=== PATIENT | female | born 1975 | race Two or more races ===

== ENCOUNTER → 2016-09-27 | Outpatient (CLI) | payer OTHER ==
[2016-03-27 16:30] VITALS: BP 158/103
[~2016-09-27] MED LIST: CARV12.52 PO; GLIP10TA13 PO; HYDR-971 PO; IOHEXOL 240 MG/ML 50ML VIAL. ONE; IOHEXOL 300 MG/ML 75 ML VIAL. IV ONE; LEVO500T59 PO; METR500T PO; NAPR500T3 PO; SULF1TAB23 PO
[2016-09-27 10:27] LABS: CREATININE 0.8 mg/dL (0.6-1.0); GFR 79.9
--- NOTE | 2016-09-27 11:45 | RAD ---
Indication teratoma. Axial images to the abdomen and pelvis were obtained. Oral and IV contrast were administered. Approximately 75 cc of Omnipaque 300 was administered intravenously. Note is made of a previous exam 12/26/2015. The lung bases are clear. Heterogeneous mass in the lower abdominal wall, compatible with a hernia appears stable. Liver and spleen appear unremarkable and the gallbladder appears grossly normal. No pancreatic abnormality is seen. There is a fatty mass associated with the right adrenal gland measuring approximately 3 cm appearing stable compatible with a benign adrenal myolipoma. The left adrenal gland appears unremarkable and the kidneys appear normal. Acute finding in the abdomen is not seen. Known fatty mass in the pelvis, measuring approximately 12 cm compatible with a teratoma is noted also appearing similar. An acute finding in the pelvis is not seen. IMPRESSION: No acute finding seen in the abdomen or pelvis. Known 12 cm pelvic mass, compatible with a teratoma, is reproduced and appears similar. Heterogeneous ventral lower abdominal wall hernia is noted appearing similar. Benign 3 cm right adrenal adenoma. PQRS Compliance Statement: One or more of the following individualized dose reduction techniques were utilized for this examination: 1. Automated exposure control 2. Adjustment of the mA and/or kV according to patient size 3. Use of iterative reconstruction technique
== END | disposition home or self-care (01) ==
LOC: CT 09:21
PROVIDERS: ATTEND Obstetrics & Gynecology
DX: E11.9 Type 2 diabetes mellitus without complications (principal); D27.1 Benign neoplasm of left ovary; K43.9 Ventral hernia without obstruction or gangrene; R19.00 Intra-abdominal and pelvic swelling, mass and lump, unspecified site
CPT/HCPCS: 36415; 74177; 82565; Q9966; Q9967

== ENCOUNTER 2016-11-11 14:08 | Emergency (ER) | payer OTHER ==
[~2016-11-11] VITALS: Ht 175.3 cm; Wt 147.4 kg
[~2016-11-11 14:08] MED LIST changes: -IOHEXOL 240 MG/ML 50ML VIAL. ONE; -IOHEXOL 300 MG/ML 75 ML VIAL. IV ONE
[2016-11-11] MEDS ORDERED: ERYT1OIN6 OP (14:48)
[2016-11-11] MEDS ORDERED: POLY10DR EACHEYE (14:48)
--- NOTE | 2016-11-11 14:48 | PHYS DOC ---
Past History Past Medical History: Anxiety, Arthritis, Asthma, Bronchitis, CHF, COPD, Depression, Diabetes, Fibromyalgia, High Cholesterol, Heart Disease, Hypertension, IBS, Ovarian Cyst, STD, UTI, Other Past Surgical History: No Surgical History Smoking: Cigarettes Alcohol Use: Occasionally Drug Use: None Adult General Chief Complaint Chief Complaint: pinkeye HPI HPI Patient is a 40-year-old female brought to the ED by her mother with the complaint of pinkeye in both eyes. She woke up with it this morning. Her vision is normal. She does not wear contact lenses. She did have a little mattering of her right eye. Her right eye is bothering her more. Review of Systems Review of Systems Constitutional: Denies fever or chills [] HENT: Denies nasal congestion or sore throat [] Allergies Allergies Allergies Coded Allergies Type Severity Reaction Last Updated Verified Penicillins Allergy Severe sob 10/26/14 No Physical Exam Physical Exam Constitutional: Well developed, well nourished, no acute distress, non-toxic appearance. Alert, mentating normally. HENT: Normocephalic, atraumatic, bilateral external ears normal, nose normal. [ ] Eyes: Moderate conjunctival injection of the right eye, mild conjunctival injection of the left eye. Corneas are clear bilaterally. Eyelids are unremarkable bilaterally. There is very slight mattering of the right eye, none on the left. Phobia. I exams are otherwise normal bilaterally. Neck: Normal range of motion, no stridor. [] Skin: Warm, dry, no erythema, no rash. [] Extremities: No tenderness, no cyanosis, no clubbing, ROM intact, no edema. [] Neurologic: Alert and oriented X 3, normal motor function, normal sensory function, no focal deficits noted. [] Current Patient Data Vital Signs Vital Signs Date Time Temp Pulse Resp B/P (MAP) Pulse Ox O2 Delivery O2 Flow Rate FiO2 11/11/16 14:38 98.4 107 22 94 EKG EKG [] Radiology/Procedures Radiology/Procedures [] Course & Med Decision Making Course & Med Decision Making Pertinent Labs and Imaging studies reviewed. (See chart for details) [] Dragon Disclaimer Dragon Disclaimer This chart was dictated in whole or in part using Voice Recognition software in a busy, high-work load, and often noisy Emergency Department environment. It may contain unintended and wholly unrecognized errors or omissions. Departure Departure: Impression: Primary Impression: Conjunctivitis Disposition: 01 HOME, SELF-CARE Condition: STABLE Referrals: ALEX POE (PCP) Patient Instructions: Conjunctivitis (Viral and Bacterial) Additional Instructions: Pinkeye" might be caused by a virus and take several days or more than a week to go away. It might be caused by a bacterial infection, which will be improved by antibiotics. If you are having trouble with your vision or other symptoms not typical for "pinkeye", see your eye doctor. Scripts Polymyxin B Sulf/Trimethoprim (POLYTRIM EYE DROPS) 10 Ml Drops 1 DROP EACHEYE Q2-3hrs for conjunctivitis, #10 ML Prov: REBECA NAVA MD 11/11/16 Erythromycin Base (Erythromycin) 1 Gm Oint...g. 1 GM OP TID for conjunctivitis, #1 MISC Apply in both eyes at bedtime Prov: REBECA NAVA MD 11/11/16 REBECA NAVA MD Nov 11, 2016 14:48
[2016-11-11 15:49] VITALS: BP 186/110
== END 2016-11-11 15:00 | disposition home or self-care (01) ==
LOC: ER 14:08
DX: H10.9 Unspecified conjunctivitis (principal); I11.0 Hypertensive heart disease with heart failure; I50.9 Heart failure, unspecified; E11.9 Type 2 diabetes mellitus without complications; F41.9 Anxiety disorder, unspecified; J44.9 Chronic obstructive pulmonary disease, unspecified; M79.7 Fibromyalgia; K58.9 Irritable bowel syndrome, unspecified; M19.90 Unspecified osteoarthritis, unspecified site; E78.00 Pure hypercholesterolemia, unspecified; F17.210 Nicotine dependence, cigarettes, uncomplicated; Z87.440 Personal history of urinary (tract) infections; Z88.0 Allergy status to penicillin
CPT/HCPCS: 99283

== ENCOUNTER 2016-11-25 19:51 | Emergency (ER) | payer OTHER ==
[~2016-11-25] VITALS: Ht 175.3 cm; Wt 187.8 kg
[~2016-11-25 19:51] MED LIST changes: +ERYT1OIN6 OP; +POLY10DR EACHEYE
[2016-11-25] MEDS ORDERED: IV NORMAL SALINE 1,000ML 1,000 ML IV SCH (19:54)
[2016-11-25 19:56] VITALS: BP 171/106
[2016-11-25] MEDS ORDERED: ONDANSETRON PF 4 MG/2 ML VIAL. IV ONE (20:00)
[2016-11-25] MEDS ORDERED: fentaNYL PF 100 MCG/2 ML VIAL IV PRN (20:00)
[2016-11-25] MEDS ORDERED: 0.9 % SODIUM CHLORIDE 10 ML DISP.SYRIN. IV PRN (20:00)
--- NOTE | 2016-11-25 20:11 | PHYS DOC ---
Past History Past Medical History: Hypertension Past Surgical History: No Surgical History Smoking: Cigarettes Alcohol Use: Occasionally Drug Use: None Adult General Chief Complaint Chief Complaint: ABDOMINAL PAIN [facility] HPI This patient is a pleasant 40-year-old female with history of multiple medical problems and morbid obesity presents with periumbilical pain that radiates out to the right lower quadrant. She's had pain like this going on for years periodically episodic about every 2-3 months. She describes as waves of pain that began around her belly button and radiates to the right lower quadrant. Described as dull and achy sharp stabbing pains in the right lower quadrant. Patient has had history of teratoma, umbilical hernia, hypertension, diabetes, and pains like this that has not been explored by laparotomy in the past. Tonight she was at rest sitting there on the couch talking with her sister when she began having severe pain periumbilically with radiation to the right lower quadrant. Daily she does not come in during these events but the family insisted. She denies any nausea at this time was nauseated with the pain. Denies any vomiting, diarrhea, UTI symptoms, hematuria, trauma, fevers, sweats, night sweats, weight loss travel outside the country. Patient says pain does not change with position or food. Review of Systems Review of Systems Constitutional: Denies fever or chills [] Eyes: Denies change in visual acuity, redness, or eye pain [] HENT: Denies nasal congestion or sore throat [] Respiratory: Denies cough or shortness of breath [] Cardiovascular: No additional information not addressed in HPI [] GI: Recently complains of abdominal pain with nausea no vomiting of bloody stools or diarrhea. No constipation : Denies dysuria or hematuria [] Musculoskeletal: Denies back pain or joint pain [] Integument: Denies rash or skin lesions [] Neurologic: Denies headache, focal weakness or sensory changes [] Endocrine: Denies polyuria or polydipsia [] Current Medications Current Medications Current Medications Medications (Trade) Dose Ordered Sig/Cami Start Time Stop Time Status Last Admin Dose Admin Fentanyl Citrate (Fentanyl 2ml Vial) 50 mcg PRN Q15MIN PRN 11/25/16 20:00 11/26/16 19:59 Ondansetron HCl (Zofran) 4 mg 1X ONCE 11/25/16 20:00 11/25/16 20:01 DC Sodium Chloride (Normal Saline Flush) 10 ml QSHIFT PRN 11/25/16 20:00 Allergies Allergies Allergies Coded Allergies Type Severity Reaction Last Updated Verified Penicillins Allergy Severe sob 10/26/14 No Physical Exam Physical Exam This patient is morbidly obese with a considerable amount of hirsutism Constitutional: Well developed, well nourished, no acute distress, non-toxic appearance. [] HENT: Normocephalic, atraumatic, bilateral external ears normal, oropharynx moist, no oral exudates, nose normal. [] Eyes: PERRLA, EOMI, conjunctiva normal, no discharge. [] Neck: Normal range of motion, no tenderness, supple, no stridor. [] Cardiovascular: Noted to be tachycardic on the monitor no murmurs rubs noted Lungs & Thorax: Bilateral breath sounds clear to auscultation [] Abdomen: Bowel sounds normal, soft, and is a umbilical hernia that is reproducible on exam there is no guarding rebound organomegaly. Patient is not any clear signs of Lizarraga's or McBurney's point tenderness to palpation. There is no abscess or cellulitis or change in skin color of the pannus. Skin: Warm, dry, no erythema, no rash. [] Extremities: No tenderness, no cyanosis, no clubbing, ROM intact, no edema. [] Neurologic: Alert and oriented X 3, normal motor function, normal sensory function, no focal deficits noted. [] Psychologic: Affect normal, judgement normal, mood normal. [] EKG EKG []EKG timed 8:06 PM demonstrates sinus tachycardia with heart rate of 107 WA interval 186 which is normal QRS width is 116 which demonstrates an incomplete right bundle branch block QTC is 473 which is normal. EKG read by me Radiology/Procedures Radiology/Procedures [] Course & Med Decision Making Course & Med Decision Making Pertinent Labs and Imaging studies reviewed. (See chart for details) [address] [address] IMAGING REPORT Signed PATIENT: ALAYNA RODRIGUEZ ACCOUNT: [id number] : 1975 LOCATION: ER AGE: 40 SEX: F EXAM STATUS: REG ER ORD. PHYSICIAN: CALVIN JEREZ MD REASON: ab pain PROCEDURE: CT ABD PELV W/ IV CONTRST ONLY PQRS Compliance Statement: One or more of the following individualized dose reduction techniques were utilized for this examination: 1. Automated exposure control 2. Adjustment of the mA and/or kV according to patient size 3. Use of iterative reconstruction technique CT abdomen/pelvis with contrast November 25, 2016 at 8:32 PM INDICATION: Abdominal pain radiating to the right abdomen. History of teratoma left ovary. COMPARISON: CT abdomen/pelvis September 27, 2016 TECHNIQUE: Multiple axial CT images of the abdomen and pelvis were obtained after the administration of 75 cc Omnipaque 300. Coronal and sagittal reformats are provided. FINDINGS: Lung bases are clear. Heart size is enlarged. There is diffuse hypoattenuation of the hepatic parenchyma suggestive of hepatic steatosis. No suspicious hepatic mass is identified. Spleen, left adrenal gland, pancreas and gallbladder are within normal limits. There is a fat-containing right adrenal lesion measuring 3.7 x 2.4 cm suggestive of a myelolipoma. The abdominal aorta is normal in course and caliber. There are no pathologically enlarged abdominal or pelvic lymph nodes. There is no free fluid within the abdomen or pelvis. No free peritoneal air. The kidneys enhance symmetrically. No suspicious renal mass is identified. There is no hydronephrosis. No calculi are identified in the ureters or urinary bladder. Urinary bladder is decompressed. There is a fat-containing right adnexal lesion measuring 13.8 x 10.6 cm, not significantly changed since September 27, 2016. Calcifications are present compatible with an ovarian teratoma. There is a fat-containing ventral hernia with fat stranding, improved since the prior examination from September 27, 2016. Small and large bowel are normal in caliber without pericolonic inflammatory changes. A normal appendix is visualized. No suspicious osseous lesions are are identified. IMPRESSION: 1. Stable right adnexal ovarian teratoma measuring 13.8 x 10.6 cm. There is mild fat stranding immediately superior to the lesion, which was seen previously to a lesser extent. Correlation with pelvic ultrasound may be of benefit to assess for ovarian torsion. 2. Similar appearance of a fat-containing ventral abdominal hernia. 3. Diffuse hepatic steatosis. 4. Stable appearance of a right adrenal myelolipoma. Electronically signed by: Ezio Munroe MD (11/25/2016 9:03 PM) [facility] DICTATED AND SIGNED BY: EZIO MUNROE MD DATE: 11/25/162056 CC: CALVIN JEREZ MD; ALEX POE []She presented with chronic right lower abdominal pain over her teratoma and her periumbilical hernia. It is not incarcerated at the time I was evaluating it. Patient's CT abdomen pelvis demonstrates a stable teratoma with no inflammatory changes at of change. Patient also notes that she hasn't focal hernia that is not incarcerated. Patient's laboratory work is also been returned she does have an elevated white count of 13,000 which is chronic for her likely secondary to chronic abdominal pain Although she is hyperglycemic with a sugar of 300 she is not in diabetic ketoacidosis. Her urinalysis she does demonstrate glucose and slight ketones but she had just eaten a large sugar bolus prior to coming in. She had eaten a turnover, [place] and a 32 ounce cola Patient I spoke long time about chronic abdominal pain and treatments for such elements. She is urgency and a general surgeon by then with Dr. Balaji Schreiber over the [facility] was offered to help fix her umbilical hernia and referred for teratoma but unfortunate she is been passed with the idea that she needs to lose weight and get her body into better shape to tolerate the surgeries. She understands her diet and her dependence on narcotics is partially completed for her sister's situation. She and I discussed reduction of narcotic usage and long-term treatment options for her belly pain. At this point there is no surgical issue going her abdomen like small bowel section, incarcerated hernia, bowel inflammation requiring localized section, antibiotics or other direct intervention. Patient be given precautions for abdominal pain which is unclear in etiology. Laboratory Tests Test 11/25/16 20:09 White Blood Count 13.0 x10^3/uL (4.0-11.0) H Red Blood Count 5.68 x10^6/uL (3.50-5.40) H Hemoglobin 15.6 g/dL (12.0-15.5) H Hematocrit 46.6 % (36.0-47.0) Mean Corpuscular Volume 82 fL (79-100) Mean Corpuscular Hemoglobin 27 pg (25-35) Mean Corpuscular Hemoglobin Concent 33 g/dL (31-37) Red Cell Distribution Width 16.3 % (11.5-14.5) H Platelet Count 283 x10^3/uL (140-400) Neutrophils (%) (Auto) 75 % (31-73) H Lymphocytes (%) (Auto) 19 % (24-48) L Monocytes (%) (Auto) 3 % (0-9) Eosinophils (%) (Auto) 2 % (0-3) Basophils (%) (Auto) 1 % (0-3) Neutrophils # (Auto) 9.8 x10^3uL (1.8-7.7) H Lymphocytes # (Auto) 2.5 x10^3/uL (1.0-4.8) Monocytes # (Auto) 0.4 x10^3/uL (0.0-1.1) Eosinophils # (Auto) 0.3 x10^3/uL (0.0-0.7) Basophils # (Auto) 0.1 x10^3/uL (0.0-0.2) Urine Collection Type Void Urine Color Estrella Urine Clarity Clear Urine pH 5.0 Urine Specific [place] >=1.030 Urine Protein >100 mg/dl (NEG-TRACE) Urine Glucose (UA) 500 mg/dL (NEG) Urine Ketones (Stick) 15 mg/dL (NEG) Urine Blood Small (NEG) Urine Nitrite Neg (NEG) Urine Bilirubin Small (NEG) Urine Urobilinogen Dipstick 1 mg/dL (0.2 mg/dL) Urine Leukocyte Esterase Neg (NEG) Urine RBC Occ /HPF (0-2) Urine WBC Occ /HPF (0-4) Urine Squamous Epithelial Cells Many /LPF Urine Bacteria 0 /HPF (0-FEW) Urine Test Negative (NEG) Sodium Level 137 mmol/L (136-145) Potassium Level 4.1 mmol/L (3.5-5.1) Chloride Level 100 mmol/L (98-107) Carbon Dioxide Level 32 mmol/L (21-32) Anion Gap 5 (6-14) L Blood Urea Nitrogen 10 mg/dL (7-20) Creatinine 1.0 mg/dL (0.6-1.0) Estimated GFR (Cockcroft-Gault) 61.7 BUN/Creatinine Ratio 10 (6-20) Glucose Level 307 mg/dL (70-99) H Glucose (Fingerstick) 314 mg/dL (70-99) H Calcium Level 8.7 mg/dL (8.5-10.1) Total Bilirubin 0.5 mg/dL (0.2-1.0) Aspartate Amino Transferase (AST) 27 U/L (15-37) Alanine Aminotransferase (ALT) 32 U/L (14-59) Alkaline Phosphatase 73 U/L (46-116) Total Protein 8.4 g/dL (6.4-8.2) H Albumin 3.4 g/dL (3.4-5.0) Albumin/Globulin Ratio 0.7 (1.0-1.7) L Lipase 123 U/L (73-393) Dragon Disclaimer Dragon Disclaimer This chart was dictated in whole or in part using Voice Recognition software in a busy, high-work load, and often noisy Emergency Department environment. It may contain unintended and wholly unrecognized errors or omissions. Departure Departure: Impression: Primary Impression: Ovarian teratoma Additional Impressions: Umbilical hernia Abdominal pain Morbid obesity Disposition: 01 HOME, SELF-CARE Condition: IMPROVED Referrals: ALEX POE (PCP) Patient Instructions: Abdominal Pain Additional Instructions: My discharge plan Follow up: In addition patient is asked to followup with their primary doctor, within a week for followup examination and to address patient's ongoing medical conditions. Patient is advised that in the Emergency Department primary complaints are addressed and only in light of known signs and symptoms. Patient should return immediately to the emergency department if new signs and symptoms develop or patient's condition worsens in any way. At time of discharge patient was in stable condition and had verbalized understanding of the discharge instructions. Please pay closer attention to your sugar levels as your diet is definitely going influence fluctuations in how high they get. They contribute to her symptoms get to [id number]. Scripts Hydrocodone Bit/Acetaminophen (HYDROCODONE-APAP 5-325 ) 1 Each Tablet 1 TAB PO PRN Q6HRS Y for PAIN, #6 TAB 0 Refills Prov: CALVIN JEREZ MD 11/25/16 Problem Qualifiers CALVIN JEREZ MD Nov 25, 2016 20:11
[2016-11-25] MEDS ORDERED: IOHEXOL 300 MG/ML 75 ML VIAL. IV ONE (20:15)
[2016-11-25 20:33] LABS: BASO # 0.1 x10^3/uL (0.0-0.2); BASO % 1 % (0-3); EOS # 0.3 x10^3/uL (0.0-0.7); EOS % 2 % (0-3); HEMATOCRIT 46.6 % (36.0-47.0); HEMOGLOBIN 15.6 g/dL (12.0-15.5); LYMPH # 2.5 x10^3/uL (1.0-4.8); LYMPH % 19 % (24-48); MEAN CORPUSCULAR HEMOGLOBIN 27 pg (25-35); MEAN CORPUSCULAR HGB CONC 33 g/dL (31-37); MEAN CORPUSCULAR VOLUME 82 fL (79-100); MONO # 0.4 x10^3/uL (0.0-1.1); MONO % 3 % (0-9); NEUT # 9.8 x10^3uL (1.8-7.7); NEUT % 75 % (31-73); PLATELET COUNT 283 x10^3/uL (140-400); RED BLOOD COUNT 5.68 x10^6/uL (3.50-5.40); RED CELL DISTRIBUTION WIDTH 16.3 % (11.5-14.5)
[2016-11-25 20:34] LABS: BILIRUBIN,URINE SMALL (NEG); CLARITY,URINE CLEAR; COLOR,URINE AMBER; GLUCOSE,URINE 500 mg/dL (NEG)
[2016-11-25 20:35] LABS: BACTERIA,URINE 0 /HPF (0-FEW); NITRITE,URINE NEG (NEG); RBC,URINE OCC /HPF (0-2); SQUAMOUS EPITHELIAL CELL,UR MANY /LPF; UROBILINOGEN,URINE 1 mg/dL (0.2 mg/dL); WBC,URINE OCC /HPF (0-4)
[2016-11-25 20:48] LABS: ALBUMIN 3.4 g/dL (3.4-5.0); ALBUMIN/GLOBULIN RATIO 0.7 (1.0-1.7); CALCIUM 8.7 mg/dL (8.5-10.1); GFR 61.7; POTASSIUM 4.1 mmol/L (3.5-5.1); TOTAL BILIRUBIN 0.5 mg/dL (0.2-1.0); TOTAL PROTEIN 8.4 g/dL (6.4-8.2)
[2016-11-25 20:49] LABS: U PREG PATIENT NEGATIVE (NEG)
--- NOTE | 2016-11-25 21:07 | RAD ---
PQRS Compliance Statement: One or more of the following individualized dose reduction techniques were utilized for this examination: 1. Automated exposure control 2. Adjustment of the mA and/or kV according to patient size 3. Use of iterative reconstruction technique CT abdomen/pelvis with contrast November 25, 2016 at 8:32 PM INDICATION: Abdominal pain radiating to the right abdomen. History of teratoma left ovary. COMPARISON: CT abdomen/pelvis September 27, 2016 TECHNIQUE: Multiple axial CT images of the abdomen and pelvis were obtained after the administration of 75 cc Omnipaque 300. Coronal and sagittal reformats are provided. FINDINGS: Lung bases are clear. Heart size is enlarged. There is diffuse hypoattenuation of the hepatic parenchyma suggestive of hepatic steatosis. No suspicious hepatic mass is identified. Spleen, left adrenal gland, pancreas and gallbladder are within normal limits. There is a fat-containing right adrenal lesion measuring 3.7 x 2.4 cm suggestive of a myelolipoma. The abdominal aorta is normal in course and caliber. There are no pathologically enlarged abdominal or pelvic lymph nodes. There is no free fluid within the abdomen or pelvis. No free peritoneal air. The kidneys enhance symmetrically. No suspicious renal mass is identified. There is no hydronephrosis. No calculi are identified in the ureters or urinary bladder. Urinary bladder is decompressed. There is a fat-containing right adnexal lesion measuring 13.8 x 10.6 cm, not significantly changed since September 27, 2016. Calcifications are present compatible with an ovarian teratoma. There is a fat-containing ventral hernia with fat stranding, improved since the prior examination from September 27, 2016. Small and large bowel are normal in caliber without pericolonic inflammatory changes. A normal appendix is visualized. No suspicious osseous lesions are are identified. IMPRESSION: 1. Stable right adnexal ovarian teratoma measuring 13.8 x 10.6 cm. There is mild fat stranding immediately superior to the lesion, which was seen previously to a lesser extent. Correlation with pelvic ultrasound may be of benefit to assess for ovarian torsion. 2. Similar appearance of a fat-containing ventral abdominal hernia. 3. Diffuse hepatic steatosis. 4. Stable appearance of a right adrenal myelolipoma. Electronically signed by: Oxana Rai MD (11/25/2016 9:03 PM) [facility]
[2016-11-25] MEDS ORDERED: HYDR-2758 PO (21:30)
== END 2016-11-25 21:40 | disposition home or self-care (01) ==
LOC: ER 19:51
DX: D27.0 Benign neoplasm of right ovary (principal); K42.9 Umbilical hernia without obstruction or gangrene; I10 Essential (primary) hypertension; E66.01 Morbid (severe) obesity due to excess calories; E11.65 Type 2 diabetes mellitus with hyperglycemia; G89.29 Other chronic pain; F17.210 Nicotine dependence, cigarettes, uncomplicated; Z88.0 Allergy status to penicillin
CPT/HCPCS: 36415; 74177; 80053; 81001; 81025; 82947; 83690; 85025; 96361; 96374; 96375; 99285; J2405; J3010; Q9967; J7030

== ENCOUNTER 2016-12-12 23:12 | Emergency (ER) | payer OTHER ==
[~2016-12-12] VITALS: Ht 175.3 cm; Wt 195.0 kg
[~2016-12-12 23:12] MED LIST changes: +HYDR-2758 PO
--- NOTE | 2016-12-12 23:59 | PHYS DOC ---
Past History Past Medical History: Anxiety, CHF, Depression, Diabetes, GERD, Heart Disease, Hypertension, Ovarian Cyst Past Surgical History: No Surgical History Smoking: Cigarettes Alcohol Use: Occasionally Drug Use: None Adult General Chief Complaint Chief Complaint: SHORTNESS OF BREATH HPI HPI Patient is a 40 year old female who presents with complaints after her CPAP was taken back by her insurance copy. She states she got new insurance company and they'll contract with the people supplier her CPAP and 1 week ago they came and picked up the machine. She states she has a new insurance currently who contracts with. They will bring her CPAP machine until she gets a sleep study. Sleep study is scheduled for 2 weeks from now. She complains of excessive tiredness, mild headache, and following asleep suddenly. According to her mom she also has noticed that she is gaining weight in the same symptoms happened 7 years ago when she was diagnosed with obstructive sleep apnea and congestive heart failure. Mom's concern that this is all related to her missing CPAP machine. Patient states that she does have a concentrator at home is been using nasal cannula oxygen and has been complaining about green mucus discharge in the last 2 days. Review of Systems Review of Systems Constitutional: Denies fever or chills [] Eyes: Denies change in visual acuity, redness, or eye pain [] HENT: Denies nasal congestion or sore throat [] Respiratory: Denies cough or shortness of breath [] Cardiovascular: No additional information not addressed in HPI [] GI: Denies abdominal pain, nausea, vomiting, bloody stools or diarrhea [] : Denies dysuria or hematuria [] Musculoskeletal: Denies back pain or joint pain [] Integument: Denies rash or skin lesions [] Neurologic: Denies headache, focal weakness or sensory changes [] Endocrine: Denies polyuria or polydipsia [] Allergies Allergies Allergies Coded Allergies Type Severity Reaction Last Updated Verified Penicillins Allergy Severe sob 10/26/14 No Physical Exam Physical Exam Constitutional: Elderly obese, no acute distress, non-toxic appearance. [] HENT: Normocephalic, atraumatic, bilateral external ears normal, oropharynx moist, no oral exudates, nose normal. [] Eyes: PERRLA, EOMI, conjunctiva normal, no discharge. [] Neck: Normal range of motion, no tenderness, supple, no stridor. [] Cardiovascular:Heart rate regular rhythm, no murmur [] Lungs & Thorax: Bilateral breath sounds clear to auscultation [] Abdomen: Bowel sounds normal, soft, no tenderness, no masses, no pulsatile masses. [] Skin: Warm, dry, no erythema, no rash. [] Back: No tenderness, no CVA tenderness. [] Extremities: No tenderness, no cyanosis, no clubbing, ROM intact, no edema. [] Neurologic: Alert and oriented X 3, normal motor function, normal sensory function, no focal deficits noted. [] Psychologic: Affect normal, judgement normal, mood normal. [] EKG EKG EKG shows sinus rhythm with rate of [address] elevations or T-wave inversions, incomplete right bundle branch morphology noted, QTC 488 milliseconds, as interpreted by me. EKG is similar one performed on December 26, 2015. Radiology/Procedures Radiology/Procedures One view chest x-ray doesn't show any focal consolidations, and pneumothorax, foreign bodies, as interpreted by me. Impressions: Viral sinusitis Morbid obesity History of congestive heart failure JOSE ALBERTO Course & Med Decision Making Course & Med Decision Making Pertinent Labs and Imaging studies reviewed. (See chart for details) Her sinus discharge is likely viral nature. We'll send home with a Z-Theodore and instructed if it continues more than 5-7 day she started taking her Z-Theodore. She had a walking desat study in the ER It better when she got up walking and her O2 sats improved. She was not hypoxic. Her vitals are within normal limits. She is not requiring oxygen. She does have oxygen concentrator at home that she uses at nighttime when she sleeps. She is missing her sleep apnea machine. I've instructed her to follow back up at her primary care clinic or see if there is a methodist or [employer] organization that she can borrow one until she gets her sleep study completed. She can get her sleep study evaluation moved up. She's being discharged home with her mom in stable condition at this time. Return precautions given. Dragon Disclaimer Dragon Disclaimer This chart was dictated in whole or in part using Voice Recognition software in a busy, high-work load, and often noisy Emergency Department environment. It may contain unintended and wholly unrecognized errors or omissions. Departure Departure: Impression: Primary Impression: Nasal and sinus discharge Referrals: ALEX POE (PCP) Patient Instructions: Sinusitis Additional Instructions: Your EKG, lab work not show any acute abnormalities, and your chest x-ray looked similar to previous ones. You might have a viral sinus infection or could be dry secondary to lack a humidifier on your oxygen concentrator. If your green nasal discharge last for more than a week you can fill your prescription for azithromycin which is an antibiotic. Regarding your CPAP machine you can try to contact her methodist or other organizations to obtain one temporarily. I recommend you calling year physician at the [facility] tomorrow and see if they can help you out. They might be older move your sleep study up or to some other things to help. Return ER if you have severe shortness of breath, chest discomfort, or other concerns. Scripts Azithromycin (ZITHROMAX PACKET) 1 Gm Packet 1 PACKET PO ONCE, #1 PACKET Prov: CAPRI HASSAN MD 12/13/16 CAPRI HASSAN MD Dec 12, 2016 23:59
[2016-12-13 01:01] LABS: BASO # 0.1 x10^3/uL (0.0-0.2); BASO % 1 % (0-3); EOS # 0.3 x10^3/uL (0.0-0.7); EOS % 2 % (0-3); HEMATOCRIT 47.8 % (36.0-47.0); HEMOGLOBIN 15.7 g/dL (12.0-15.5); LYMPH # 2.7 x10^3/uL (1.0-4.8); LYMPH % 21 % (24-48); MEAN CORPUSCULAR HEMOGLOBIN 27 pg (25-35); MEAN CORPUSCULAR HGB CONC 33 g/dL (31-37); MEAN CORPUSCULAR VOLUME 83 fL (79-100); MONO # 0.6 x10^3/uL (0.0-1.1); MONO % 5 % (0-9); NEUT # 9.5 x10^3uL (1.8-7.7); NEUT % 72 % (31-73); PLATELET COUNT 256 x10^3/uL (140-400); RED CELL DISTRIBUTION WIDTH 16.4 % (11.5-14.5); WHITE BLOOD COUNT 13.2 x10^3/uL (4.0-11.0)
--- NOTE | 2016-12-13 01:05 | EKG ---
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
[2016-12-13 01:56] LABS: ALBUMIN 3.4 g/dL (3.4-5.0); CREATININE 0.8 mg/dL (0.6-1.0); DIRECT BILIRUBIN 0.2 mg/dL (0.0-0.2); GFR 79.9; MAGNESIUM 1.8 mg/dL (1.8-2.4); POTASSIUM 4.5 mmol/L (3.5-5.1); TOTAL BILIRUBIN 0.7 mg/dL (0.2-1.0); TOTAL PROTEIN 8.5 g/dL (6.4-8.2)
[2016-12-13 02:10] LABS: BARBITURATES NEG (NEG); BENZODIAZEPINES NEG (NEG); CANNABINOIDS NEG (NEG); COCAINE NEG (NEG); METHADONE NEG (NEG); OPIATES NEG (NEG); PHENCYCLIDINE NEG (NEG)
[2016-12-13 02:12] LABS: BACTERIA,URINE FEW /HPF (0-FEW); BILIRUBIN,URINE NEG (NEG); CLARITY,URINE CLEAR; COLOR,URINE YELLOW; GLUCOSE,URINE >=1000 mg/dL (NEG); NITRITE,URINE NEG (NEG); RBC,URINE 0 /HPF (0-2); SQUAMOUS EPITHELIAL CELL,UR MANY /LPF; UROBILINOGEN,URINE 1 mg/dL (0.2 mg/dL); WBC,URINE RARE /HPF (0-4)
[2016-12-13 02:13] LABS: AMPHETAMINE/METHAMPHETAMINE NEG (NEG)
[2016-12-13 02:51] VITALS: BP 172/117
[2016-12-13] MEDS ORDERED: AZIT1PAC PO (02:51)
--- NOTE | 2016-12-13 07:37 | RAD ---
Chest x-ray Indication: Shortness of breath Technique: AP view of the chest Comparison: Previous study from 12/19/2015 Findings: Heart is mildly enlarged in size. There is loss of normal concavity at the aortopulmonary window. Bilateral prominent pulmonary vasculature with signs of cephalization. No focal consolidation. Mild diffuse bilateral prominent interstitial markings. No pneumothorax or pleural effusion. Stable infiltration of the right hemidiaphragm. Visualized bony thorax is within normal limits. Impression: 1. Stable cardiomegaly with pulmonary vascular congestion and mild pulmonary interstitial edema. 2. Loss of normal concavity at the aortopulmonary window may suggest enlarged main pulmonary artery suggesting pulmonary hypertension.
== END 2016-12-13 03:05 | disposition home or self-care (01) ==
LOC: ER 23:12
DX: J32.8 Other chronic sinusitis (principal); E66.01 Morbid (severe) obesity due to excess calories; I11.0 Hypertensive heart disease with heart failure; I50.9 Heart failure, unspecified; E11.9 Type 2 diabetes mellitus without complications; K21.9 Gastro-esophageal reflux disease without esophagitis; F41.9 Anxiety disorder, unspecified; F32.9 Major depressive disorder, single episode, unspecified; F17.210 Nicotine dependence, cigarettes, uncomplicated; G47.33 Obstructive sleep apnea (adult) (pediatric); Z68.44 Body mass index [BMI] 60.0-69.9, adult; Z88.0 Allergy status to penicillin
CPT/HCPCS: 36415; 71010; 80048; 80076; 80307; 81001; 81025; 82553; 83735; 83880; 84484; 85025; 93005; 99285-25; G0479

== ENCOUNTER 2016-12-17 21:28 | Inpatient (IN) | payer OTHER ==
[~2016-12-17] VITALS: Ht 175.3 cm; Wt 196.2 kg
[~2016-12-17 21:28] MED LIST changes: +AZIT1PAC PO; -NAPR500T3 PO; +NAPR500T4 PO
[2016-12-17] MEDS ORDERED: LABETALOL 20 MG/4 ML DISP.SYRIN. IVP ONE (22:15)
--- NOTE | 2016-12-17 22:44 | EKG ---
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
[2016-12-17 23:01] LABS: BASO % 0 % (0-3); EOS # 0.3 x10^3/uL (0.0-0.7); EOS % 3 % (0-3); HEMATOCRIT 45.4 % (36.0-47.0); HEMOGLOBIN 15.2 g/dL (12.0-15.5); LYMPH % 25 % (24-48); MEAN CORPUSCULAR HEMOGLOBIN 27 pg (25-35); MEAN CORPUSCULAR HGB CONC 34 g/dL (31-37); MEAN CORPUSCULAR VOLUME 82 fL (79-100); MONO # 0.6 x10^3/uL (0.0-1.1); MONO % 5 % (0-9); NEUT # 8.2 x10^3uL (1.8-7.7); NEUT % 67 % (31-73); PLATELET COUNT 223 x10^3/uL (140-400); RED BLOOD COUNT 5.56 x10^6/uL (3.50-5.40); RED CELL DISTRIBUTION WIDTH 16.3 % (11.5-14.5); WHITE BLOOD COUNT 12.2 x10^3/uL (4.0-11.0)
[2016-12-17 23:23] LABS: ALBUMIN 3.4 g/dL (3.4-5.0); ALBUMIN/GLOBULIN RATIO 0.8 (1.0-1.7); CALCIUM 8.6 mg/dL (8.5-10.1); CREATININE 0.8 mg/dL (0.6-1.0); GFR 79.9; TOTAL BILIRUBIN 0.4 mg/dL (0.2-1.0); TOTAL PROTEIN 7.7 g/dL (6.4-8.2)
[2016-12-17 23:24] LABS: POTASSIUM 4.2 mmol/L (3.5-5.1)
[2016-12-18] VITALS (13 sets, daily range): BP systolic 139–196; BP diastolic 71–117
[2016-12-18] MEDS ORDERED: FUROSEMIDE 40 MG/4 ML VIAL IVP ONE
[2016-12-18] MEDS ORDERED: hydrALAZINE 20 MG/ML VIAL. IV ONE
--- NOTE | 2016-12-18 00:29 | PHYS DOC ---
Past History Past Medical History: Anxiety, CHF, COPD, Depression, Diabetes, GERD, Heart Disease, Hypertension, Ovarian Cyst, Other Past Surgical History: No Surgical History Smoking: Cigarettes Alcohol Use: Occasionally Drug Use: None Adult General Chief Complaint Chief Complaint: SHORTNESS OF BREATH HPI HPI Patient is a 40 year old female who presents with complaint shortness of breath. Patient states that her symptoms have been progressively worsening over the past 9 days. Patient has history of morbid obesity and obstructive sleep apnea. Patient states that she had been on CPAP therapy at nighttime was recently taken off of this due to insurance problems. The patient has been trialed on oxygen at nighttime. Patient states that despite treatment she has been feeling worse. Patient also notes that she has been having worsening dyspnea on exertion, orthopnea, and lower extremity edema over the course of the last week. Patient had been seen recently in the emergency department and was treated for sinusitis. Patient states that she took in a box as prescribed, however this did not help with her symptoms. Patient denies any associated fevers or associated pain at this time. Patient states that she gets very short of breath with minimal exertion. Patient has not taken any medications help with symptoms at this time. Review of Systems Review of Systems Constitutional: Denies fever or chills [] Eyes: Denies change in visual acuity, redness, or eye pain [] HENT: Denies nasal congestion or sore throat [] Respiratory: Shortness of breath[] Cardiovascular: Lower extremity edema, orthopnea, denies chest pain[] GI: Denies abdominal pain, nausea, vomiting, bloody stools or diarrhea [] : Denies dysuria or hematuria [] Musculoskeletal: Denies back pain or joint pain [] Integument: Denies rash or skin lesions [] Neurologic: Denies headache, focal weakness or sensory changes [] Current Medications Current Medications Current Medications Medications (Trade) Dose Ordered Sig/Cami Start Time Stop Time Status Last Admin Dose Admin Labetalol HCl (Normodyne) 20 mg 1X ONCE 12/17/16 22:15 12/17/16 22:16 DC 12/17/16 23:00 20 MG Allergies Allergies Allergies Coded Allergies Type Severity Reaction Last Updated Verified Penicillins Allergy Severe sob 10/26/14 No Physical Exam Physical Exam Constitutional: Alert, afebrile, morbidly obese, appears in mild respiratory distress. [] HENT: Normocephalic, atraumatic, bilateral external ears normal, oropharynx moist, no oral exudates, nose normal. [] Eyes: PERRLA, EOMI, conjunctiva normal, no discharge. [] Neck: Normal range of motion, no tenderness, supple, no stridor. [] Cardiovascular: Tachycardia, regular rhythm, no murmur [] Lungs & Thorax: Mild to moderate restriction of air movement bilaterally, no wheezes, rales present[] Abdomen: Bowel sounds normal, soft, no tenderness, no masses, no pulsatile masses. [] Skin: Warm, dry, no erythema, no rash. [] Back: No tenderness, no CVA tenderness. [] Extremities: No tenderness, no cyanosis, no clubbing, ROM intact, 1+ pitting edema in the bilateral lower extremities. [] Neurologic: Alert and oriented X 3, normal motor function, normal sensory function, no focal deficits noted. [] Current Patient Data Vital Signs Vital Signs Date Time Temp Pulse Resp B/P (MAP) Pulse Ox O2 Delivery O2 Flow Rate FiO2 12/17/16 23:00 120 189/133 12/17/16 21:40 98.2 20 96 Room Air Lab Results Laboratory Tests Test 12/17/16 22:40 White Blood Count 12.2 x10^3/uL (4.0-11.0) H Red Blood Count 5.56 x10^6/uL (3.50-5.40) H Hemoglobin 15.2 g/dL (12.0-15.5) Hematocrit 45.4 % (36.0-47.0) Mean Corpuscular Volume 82 fL (79-100) Mean Corpuscular Hemoglobin 27 pg (25-35) Mean Corpuscular Hemoglobin Concent 34 g/dL (31-37) Red Cell Distribution Width 16.3 % (11.5-14.5) H Platelet Count 223 x10^3/uL (140-400) Neutrophils (%) (Auto) 67 % (31-73) Lymphocytes (%) (Auto) 25 % (24-48) Monocytes (%) (Auto) 5 % (0-9) Eosinophils (%) (Auto) 3 % (0-3) Basophils (%) (Auto) 0 % (0-3) Neutrophils # (Auto) 8.2 x10^3uL (1.8-7.7) H Lymphocytes # (Auto) 3.0 x10^3/uL (1.0-4.8) Monocytes # (Auto) 0.6 x10^3/uL (0.0-1.1) Eosinophils # (Auto) 0.3 x10^3/uL (0.0-0.7) Basophils # (Auto) 0.0 x10^3/uL (0.0-0.2) Sodium Level 135 mmol/L (136-145) L Potassium Level 4.2 mmol/L (3.5-5.1) Chloride Level 96 mmol/L (98-107) L Carbon Dioxide Level 33 mmol/L (21-32) H Anion Gap 6 (6-14) Blood Urea Nitrogen 12 mg/dL (7-20) Creatinine 0.8 mg/dL (0.6-1.0) Estimated GFR (Cockcroft-Gault) 79.9 BUN/Creatinine Ratio 15 (6-20) Glucose Level 330 mg/dL (70-99) H Calcium Level 8.6 mg/dL (8.5-10.1) Total Bilirubin 0.4 mg/dL (0.2-1.0) Aspartate Amino Transferase (AST) 26 U/L (15-37) Alanine Aminotransferase (ALT) 32 U/L (14-59) Alkaline Phosphatase 75 U/L (46-116) Creatine Kinase 58 U/L (26-192) Creatine Kinase MB (Mass) 0.8 ng/mL (0.0-3.6) Creatine Kinase MB Relative Index 1.4 % (0-4) Troponin I Quantitative 0.031 ng/mL (0-0.055) UP-Keg-K-Type Natriuretic Peptide 217 pg/mL (0-124) H Total Protein 7.7 g/dL (6.4-8.2) Albumin 3.4 g/dL (3.4-5.0) Albumin/Globulin Ratio 0.8 (1.0-1.7) L EKG EKG Interpreted by me: Heart rate 119, sinus tachycardia, left axis deviation, no acute ST elevations or depressions[] Radiology/Procedures Radiology/Procedures One view AP chest x-ray interpreted by me: Mild interval worsening of pulmonary vascular congestion, pulmonary edema, cardiomegaly present[] Course & Med Decision Making Course & Med Decision Making Pertinent Labs and Imaging studies reviewed. (See chart for details) Patient found have pathologically elevated blood pressure in the emergency department. Patient was given labetalol and hydralazine for treatment. Patient' s x-ray shows evidence of possible worsening congestive heart failure. On ambulation, the patient's oxygen saturation decreases to 88% but returns to 92% at rest. The patient appears to be in acute congestive heart failure which may also be result of accelerated hypertension. The patient will require admission to the hospital for further treatment. I spoke with Dr. Grajeda who accepted care patient in hospital. Dragon Disclaimer Dragon Disclaimer This chart was dictated in whole or in part using Voice Recognition software in a busy, high-work load, and often noisy Emergency Department environment. It may contain unintended and wholly unrecognized errors or omissions. Departure Departure: Impression: Primary Impression: Acute congestive heart failure Additional Impressions: Malignant hypertension Morbid obesity Uncontrolled diabetes mellitus Disposition: 09 ADMITTED INPATIENT Admitting Physician: Mihir Grajeda Condition: GUARDED Referrals: ALEX POE (PCP) Problem Qualifiers Primary Impression: Acute congestive heart failure Congestive heart failure type: unspecified congestive heart failure type Qualified Codes: I50.9 - Heart failure, unspecified Additional Impressions: Uncontrolled diabetes mellitus Diabetes mellitus type: type 2 Diabetes mellitus complication status: with hyperglycemia 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
[2016-12-18] MEDS ORDERED: LABETALOL 20 MG/4 ML DISP.SYRIN. IVP PRN (00:30)
[2016-12-18] MEDS ORDERED: ACETAMINOPHEN 325 MG TABLET PO PRN (00:30)
[2016-12-18] MEDS ORDERED: hydrALAZINE 20 MG/ML VIAL. IV PRN (00:30)
[2016-12-18] MEDS ORDERED: ONDANSETRON PF 4 MG/2 ML VIAL. IV PRN (00:30)
[2016-12-18 02:32] LABS: CLARITY,URINE CLEAR; COLOR,URINE STRAW; GLUCOSE,URINE 100 mg/dL (NEG)
[2016-12-18 02:33] LABS: BACTERIA,URINE FEW /HPF (0-FEW); BILIRUBIN,URINE NEG (NEG); HYALINE CASTS, URINE OCC /HPF; NITRITE,URINE NEG (NEG); RBC,URINE RARE /HPF (0-2); SQUAMOUS EPITHELIAL CELL,UR FEW /LPF; UROBILINOGEN,URINE 0.2 mg/dL (0.2 mg/dL); WBC,URINE OCC /HPF (0-4)
[2016-12-18] MEDS ORDERED: DEXTROSE 50% 25 GM / 50ML DISP.SYRIN. IV PRN (08:15)
[2016-12-18] MEDS: INSULIN ASPART 300 UNITS/3 ML INSULN.PEN SQ SCH ×4 (08:23→20:58)
[2016-12-18] MEDS ORDERED: OMEP40CA5 PO (08:59)
--- NOTE | 2016-12-18 09:05 | PDOC2 ---
CONSULT Date of Admission DATE: 12/18/16 TIME: 09:00 Reason for Consult: chf, accelerated hypertension Problem List Problems Medical Problems: (1) Acute congestive heart failure Status: Acute (2) Malignant hypertension Status: Acute (3) Morbid obesity Status: Acute (4) Uncontrolled diabetes mellitus Status: Acute History of Present Illness Ms Baker is a 40 year old female who presented with reports of shortness of breath which has been progressively worsening over the past 9 days. She complains of worsening dyspnea on exertion, orthopnea, and lower extremity edema over the last week. She reports 4 pillow orthopnea which she says is chronic. She complains of a productive cough with green sputum. She does say this has improved since recent treatment for sinusitis but the cough remains. She reports recently losing her CPAP due to insurance reasons but has been on oxygen at night and with exertion at home. She complains that her symptoms of fatigue, daytime somnolence and am headaches have increased significantly since being off CPAP. She does normally see a scada operator at [facility] but reports that physician is no longer practicing. Her PCP is out of [facility] in [place]. She reports that she takes her medications for hypertension but not always religiously. Past Medical History asthma, copd, morbid obesity, polycystic ovarian syndrome, diabetes mellitus, JOSE ALBERTO, hypertension, ovarian teratoma, ventral hernia, fatty liver, adrenal myelolipoma Past Surgical History: Tonsillectomy, Other (tubes in earsz) Family History premature coronary disease, father of MD in his 40s Social History non smoker, no illicit drugs, no significant ETOH Current Medications Current Medications Labetalol HCl (Normodyne) 20 mg 1X ONCE IVP Last administered on 12/17/16 23: 00; Start 12/17/16 at 22:15; Stop 12/17/16 at 22:16; Status DC Hydralazine HCl (Apresoline) 10 mg 1X ONCE IV Last administered on 12/18/16 01:10; Start 12/18/16 at 00:00; Stop 12/18/16 at 01:11; Status DC Furosemide (Lasix) 40 mg 1X ONCE IVP Last administered on 12/18/16 01:10; Start 12/18/16 at 00:00; Stop 12/18/16 at 01:11; Status DC Ondansetron HCl (Zofran) 4 mg PRN Q4HRS PRN IV NAUSEA/VOMITING; Start 12/18/16 at 00:30; Stop 12/19/16 at 00:29 Acetaminophen (Tylenol) 650 mg PRN Q4HRS PRN PO FEVER; Start 12/18/16 at 00:30 ; Stop 12/19/16 at 00:29 Labetalol HCl (Normodyne) 20 mg PRN Q2HR PRN IVP HYPERTENSION, SEE COMMENTS; Start 12/18/16 at 00:30 Hydralazine HCl (Apresoline) 10 mg PRN Q4HRS PRN IV ELEVATED BP, SEE COMMENTS Last administered on 12/18/16 05:20; Start 12/18/16 at 00:30 Insulin Aspart (NovoLOG) 0-7 UNITS TIDACHC SQ Last administered on 12/18/16 08 :23; Start 12/18/16 at 08:15 Dextrose 12.5 gm PRN Q15MIN PRN IV SEE COMMENTS; Start 12/18/16 at 08:15 Active Scripts Active [place] 5-325 Tablet (Hydrocodone Bit/Acetaminophen) 1 Each Tablet 1-2 Tab PO Q6HRS PRN Naproxen 500 Mg Tablet 500 Mg PO BID PRN Reported Omeprazole 40 Mg Capsule.dr 1 Cap PO DAILY Glipizide 10 Mg Tablet 1 Tab PO BID Allergies: Coded Allergies: Penicillins (Unverified Allergy, Severe, sob, 10/26/14) Review of System as per HPI General: Alert, Oriented X3, Cooperative, No acute distress HEENT: Atraumatic, EOMI Lungs: Other (decreased throughout, no obvious crackles, rhonchi or wheezing) Heart: Regular rate, Normal S1, Normal S2 Abdomen: Normal bowel sounds, Soft, Other (morbidly obese) Extremities: No cyanosis, Normal pulses, Other (trace edema) Neuro: Normal speech, Strength at 5/5 X4 ext Psych/Mental Status: Mental status NL, Mood NL VITALS Vital Signs Date Time Temp Pulse Resp B/P (MAP) Pulse Ox O2 Delivery O2 Flow Rate FiO2 12/18/16 06:41 98.8 104 22 146/79 (101) 96 Nasal Cannula 2.0 Labs Laboratory Tests Test 12/17/16 02:00 12/17/16 22:40 12/18/16 06:16 12/18/16 08:01 Urine Collection Type Unknown Urine Color Straw Urine Clarity Clear Urine pH 6.0 Urine Specific [place] 1.010 Urine Protein Neg (NEG-TRACE) Urine Glucose (UA) 100 mg/dL (NEG) Urine Ketones (Stick) Neg mg/dL (NEG) Urine Blood Neg (NEG) Urine Nitrite Neg (NEG) Urine Bilirubin Neg (NEG) Urine Urobilinogen Dipstick 0.2 mg/dL (0.2 mg/dL) Urine Leukocyte Esterase Neg (NEG) Urine RBC Rare /HPF (0-2) Urine WBC Occ /HPF (0-4) Urine Squamous Epithelial Cells Few /LPF Urine Bacteria Few /HPF (0-FEW) Urine Hyaline Casts Occ /HPF White Blood Count 12.2 x10^3/uL (4.0-11.0) Red Blood Count 5.56 x10^6/uL (3.50-5.40) Hemoglobin 15.2 g/dL (12.0-15.5) Hematocrit 45.4 % (36.0-47.0) Mean Corpuscular Volume 82 fL (79-100) Mean Corpuscular Hemoglobin 27 pg (25-35) Mean Corpuscular Hemoglobin Concent 34 g/dL (31-37) Red Cell Distribution Width 16.3 % (11.5-14.5) Platelet Count 223 x10^3/uL (140-400) Neutrophils (%) (Auto) 67 % (31-73) Lymphocytes (%) (Auto) 25 % (24-48) Monocytes (%) (Auto) 5 % (0-9) Eosinophils (%) (Auto) 3 % (0-3) Basophils (%) (Auto) 0 % (0-3) Neutrophils # (Auto) 8.2 x10^3uL (1.8-7.7) Lymphocytes # (Auto) 3.0 x10^3/uL (1.0-4.8) Monocytes # (Auto) 0.6 x10^3/uL (0.0-1.1) Eosinophils # (Auto) 0.3 x10^3/uL (0.0-0.7) Basophils # (Auto) 0.0 x10^3/uL (0.0-0.2) Sodium Level 135 mmol/L (136-145) Potassium Level 4.2 mmol/L (3.5-5.1) Chloride Level 96 mmol/L (98-107) Carbon Dioxide Level 33 mmol/L (21-32) Anion Gap 6 (6-14) Blood Urea Nitrogen 12 mg/dL (7-20) Creatinine 0.8 mg/dL (0.6-1.0) Estimated GFR (Cockcroft-Gault) 79.9 BUN/Creatinine Ratio 15 (6-20) Glucose Level 330 mg/dL (70-99) Calcium Level 8.6 mg/dL (8.5-10.1) Total Bilirubin 0.4 mg/dL (0.2-1.0) Aspartate Amino Transf (AST/SGOT) 26 U/L (15-37) Alanine Aminotransferase (ALT/SGPT) 32 U/L (14-59) Alkaline Phosphatase 75 U/L (46-116) Creatine Kinase 58 U/L (26-192) Creatine Kinase MB (Mass) 0.8 ng/mL (0.0-3.6) Creatine Kinase MB Relative Index 1.4 % (0-4) Troponin I Quantitative 0.031 ng/mL (0-0.055) MI-Kkf-E-Type Natriuretic Peptide 217 pg/mL (0-124) Total Protein 7.7 g/dL (6.4-8.2) Albumin 3.4 g/dL (3.4-5.0) Albumin/Globulin Ratio 0.8 (1.0-1.7) Glucose (Fingerstick) 332 mg/dL (70-99) 321 mg/dL (70-99) Images CXR - pulmonary congestion Assessment/Plan 1. Acute CHF, likely diastolic secondary to uncontrolled hypertension - check echocardiogram. resume home medications. 2. Asthma/COPD - probable PHTN - await echo 3. Accelerated hypertension - resume home meds 4. Diabetes mellitus - per PCP 5. JOSE ALBERTO - suggest home sleep study and resume CPAP gloria 6. 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
--- NOTE | 2016-12-18 09:26 | RAD ---
Exam performed: One view chest. History: Shortness of breath for a few days. Date of service: 12/17/16. Comparison: 12/13/16. Single AP upright portable view chest findings: Cardiomegaly. Central vascular congestion is noted. Prominent interstitial markings are seen in both perihilar regions. No focal infiltrates, effusion or pneumothorax. Impression: Cardiomegaly with low-grade CHF
[2016-12-18] MEDS: amLODIPine BESYLATE 5 MG TABLET PO SCH (09:46)
[2016-12-18] MEDS ORDERED: LISINOPRIL 10 MG TABLET PO SCH (10:00)
[2016-12-18] MEDS ORDERED: CITA10TA4 PO (10:03)
[2016-12-18] MEDS ORDERED: LISI10TA2 PO (10:03)
[2016-12-18] MEDS ORDERED: FURO20TA3 PO (10:03)
[2016-12-18] MEDS ORDERED: SPIR25TA3 PO (10:04)
[2016-12-18] MEDS ORDERED: FENO145T2 PO (10:50)
[2016-12-18] MEDS ORDERED: AMLO5TAB2 PO (10:51)
[2016-12-18] MEDS ORDERED: ASPI81TA50 PO (10:51)
[2016-12-18] MEDS ORDERED: GLIP10TA13 PO (10:52)
[2016-12-18] MEDS ORDERED: CITA40TA5 PO (12:57)
[2016-12-18] MEDS ORDERED: FENO160T PO (12:57)
[2016-12-18] MEDS ORDERED: FURO40TA4 PO (12:58)
[2016-12-18] MEDS ORDERED: GLIP5TAB10 PO (12:59)
[2016-12-18] MEDS ORDERED: LISI40TA PO (13:00)
[2016-12-18] MEDS ORDERED: SAXA5TAB PO (13:01)
[2016-12-18] MEDS ORDERED: ATOR40TA59 PO (13:02)
[2016-12-18] MEDS ORDERED: LISINOPRIL 10 MG TABLET PO ONE (13:15)
[2016-12-18] MEDS: ASPIRIN ENTERIC COATED 81 MG TABLET.DR. PO SCH (13:25)
[2016-12-18] MEDS: SPIRONOLACTONE 25 MG TABLET PO SCH (13:25)
[2016-12-18] MEDS: FUROSEMIDE 40 MG TABLET PO SCH (13:25)
[2016-12-18] MEDS: CITALOPRAM 20 MG TABLET. PO SCH (13:25)
[2016-12-18] MEDS: LINAGLIPTIN 5 MG TABLET PO SCH (13:29)
[2016-12-18] MEDS: PANTOPRAZOLE 40 MG TABLET. PO SCH (13:29)
[2016-12-18] MEDS: FENOFIBRATE NANOCRYSTALLIZED 145 MG TABLET PO SCH (13:29)
--- NOTE | 2016-12-18 14:11 | HP ---
ADMIT DATE: 12/18/2016 HISTORY OF PRESENT ILLNESS: The patient is a 40-year-old female patient who came to the Emergency Room complaining of increasing shortness of breath, cough with whitish sputum. She also complained of orthopnea and bilateral lower extremity edema. She was evaluated in the Emergency Room and was diagnosed with acute congestive heart failure, likely due to diastolic congestive heart failure, accelerated hypertension, morbid obesity and poorly controlled type 2 diabetes. Unfortunately, the patient does not know her doses of medications and does not seem to be very noncompliant with her medications by her own admission. We did contact her pharmacy and also her brother who would bring the medications and we did start her on some of the medications that were written in her prior Emergency Room visit. PAST MEDICAL HISTORY: Significant for hypertension, type 2 diabetes mellitus, polycystic ovary syndrome, morbid obesity, depression, anxiety, umbilical hernia and hyperlipidemia. PAST SURGICAL HISTORY: Significant for bilateral myringotomy tube placement in both ears. ALLERGIES: She is allergic to PENICILLIN. MEDICATIONS: She is currently on following medications: She is on amlodipine 5 mg once a day, aspirin 81 mg once a day, citalopram hydrobromide 10 mg once a day, fenofibrate 145 mg once a day, furosemide 20 mg once a day, glipizide 10 mg twice a day, hydrocodone/APAP 5/325 one to two tablets every 6 hours, lisinopril 10 mg once a day, naproxen 500 mg twice a day, omeprazole 40 mg once a day, spironolactone 25 mg once a day. FAMILY HISTORY: She has 1 older brother who is known to have hypertension, diabetes. She has 2 younger sisters that are seemingly healthy. Her father at age 48 because of myocardial infarction. Her mother is alive at age of 63 and she is known to have type 2 diabetes and severe bronchial asthma. She apparently has had 3 episodes of acute respiratory failure requiring intubation and mechanical ventilation. SOCIAL HISTORY: She is single, never , has no children. Quit smoking in 2009. She smoked for 16 years. She does not drink alcohol or use any recreational drugs. She is currently unemployed. She is on social security. REVIEW OF SYSTEMS: The patient denied any blurring of vision, cataract, glaucoma or macular degeneration. Denied any earache, tinnitus or sensorineural deafness. Denied any nosebleeds, stuffy nose or postnasal drip. Denied any sore throat, sore tongue, toothache, hoarseness of voice or difficulty swallowing. Denied any nausea, vomiting, diarrhea or constipation. Denied any hematemesis, melena or hematochezia. Denied any dysuria, frequency or hematuria. Denied any chest pain. Did complain of shortness of breath, cough with whitish sputum. She also complained of swelling of both lower extremities and orthopnea. She apparently was diagnosed before with obstructive sleep apnea and used to have a CPAP, which she has lost although she has never had any official sleep study. PHYSICAL EXAMINATION: GENERAL: On arrival to the Emergency Room, the patient was slightly tachypneic, tachycardic and somewhat pale, but no jaundice, cyanosis, or thyromegaly. No jugular venous distention but mild bilateral limb edema. VITAL SIGNS: Her heart rate was 118, blood pressure was 180/127, temperature was 98.2, respiratory rate 20, and oxygen saturation was 96%. HEENT: Showed normocephalic, atraumatic. NECK: Supple. HEART: Showed normal first and second heart sounds. No gallop, rub or murmur. CHEST: Clear to auscultation. No crepitation or rhonchi. ABDOMEN: Distended, soft, nontender. NEUROLOGIC: She is awake, alert and responding appropriately. Cranial nerves are intact. EXTREMITIES: She moves extremities without difficulty. LABORATORY DATA: On admission showed a white cell count of 12,200, hemoglobin 15, hematocrit 45, MCV 82 and platelet count 223,000 with a manual differential showed 67% polymorphs, 25% lymphocytes and 5% monocytes. Her chemistry showed a serum sodium 135, potassium 4.2, chloride 96, bicarbonate 33, anion gap of 6, BUN 12, creatinine 0.8, estimated GFR was 18 mL per minute. Her glucose was 330, calcium was 8.6. Total bilirubin, AST, ALT, alkaline phosphatase were normal. Her troponin was 0.031. Beta natriuretic peptide was 717. Total protein 7.7, albumin was 3.4. Urinalysis was unremarkable. Her chest x-ray showed has central vascular congestion is noted. Prominent interstitial markings are seen in both perihilar regions. No focal infiltrate, effusion or pneumothorax seen. ASSESSMENT AND PLAN: The patient was admitted with acute congestive heart failure due to left ventricular diastolic dysfunction, also accelerated hypertension. Her blood pressure is poorly controlled complicated by the fact the patient by her own admission is noncompliant and does not take her medications regularly. She has also morbid obesity with obstructive sleep apnea for which she used to be on CPAP and also poorly controlled type 2 diabetes mellitus. We have spoken to her brother who would bring the medications to verify the doses of medications she is on and we will adjust her antihypertensive medications and monitor his blood sugars and add some perhaps metformin to achieve better control as well as insulin sliding scale. She apparently had an appointment for a sleep study at [facility] on 12/26/2016. CESAR TREJO MD DR: ROSALINA/joan JOB#: [id number] / [id number]
[2016-12-18] MEDS: glipiZIDE 5 MG TABLET PO SCH (20:52)
[2016-12-18] MEDS: ATORVASTATIN CALCIUM 20 MG TABLET PO SCH (20:52)
--- NOTE | 2016-12-19 01:11 | PN ---
DATE: 12/18/2016 SUBJECTIVE: The patient is sitting on the edge of the bed, in no apparent respiratory distress. She continued to complain of shortness of breath, cough with white sputum. She is tachycardic and her blood pressure continued to be poorly controlled, it was 193/117. On questioning her, she stated that she is noncompliant, has a problem taking her medication on a regular basis. Her brother who brought her medications from home and it transpired that she was on amlodipine 5 mg; however, she is also on lisinopril 40 mg and spironolactone 25 mg. PHYSICAL EXAMINATION: GENERAL: When I examined her, she looked well and was clearly in no apparent respiratory distress, pale, no jaundice, cyanosis or thyromegaly. No jugular venous distention. No limb edema. VITAL SIGNS: Her heart rate was 106, blood pressure was 193/117, temperature was 98, respiratory rate was 22 and oxygen saturation was 98% on 2 liters of oxygen. HEAD, EYES, EARS, NOSE AND THROAT: Showed normocephalic, atraumatic. NECK: Supple. HEART: Showed normal first and second heart sounds with no gallop, rub or murmur. CHEST: Clear to auscultation. No crepitation or rhonchi. ABDOMEN: Markedly distended, soft, nontender. No guarding or rigidity. No organomegaly. Hernial orifices intact. Bowel sounds normal. NEUROLOGIC: She was awake, alert, responding appropriately. Cranial nerves intact. She moves extremities without difficulty. She is able to ambulate without assistance or assistive devices. Her intake over the last 24 hours was 600, output was 1950. Her lab work continued to show poorly controlled blood sugar. ASSESSMENT: 1. Acute congestive heart failure due to left ventricular diastolic dysfunction. 2. Malignant hypertension. 3. Morbid obesity with obstructive sleep apnea. 4. Poorly controlled type 2 diabetes mellitus. PLAN: To continue with all her medication. I will increase her amlodipine to 10 mg and then add another 30 mg of lisinopril today and from tomorrow morning we will continue with 40 mg of lisinopril. Continue with Lasix and spironolactone. I will continue to monitor her blood sugar and add hydralazine 10 mg IV q.4 hours for systolic pressure of more than 160 as well as labetalol and we added also insulin sliding scale. I will repeat all her lab work tomorrow. CESAR TREJO MD DR: ROSALINA/joan JOB#: [id number] / [id number]
[2016-12-19 06:00] VITALS: BP 157/78
[2016-12-19 06:35] LABS: BASO # 0.1 x10^3/uL (0.0-0.2); BASO % 1 % (0-3); EOS # 0.3 x10^3/uL (0.0-0.7); EOS % 2 % (0-3); HEMATOCRIT 44.9 % (36.0-47.0); HEMOGLOBIN 14.8 g/dL (12.0-15.5); LYMPH # 2.6 x10^3/uL (1.0-4.8); LYMPH % 23 % (24-48); MEAN CORPUSCULAR HEMOGLOBIN 27 pg (25-35); MEAN CORPUSCULAR HGB CONC 33 g/dL (31-37); MEAN CORPUSCULAR VOLUME 83 fL (79-100); MONO # 0.6 x10^3/uL (0.0-1.1); MONO % 5 % (0-9); NEUT # 7.9 x10^3uL (1.8-7.7); NEUT % 69 % (31-73); PLATELET COUNT 219 x10^3/uL (140-400); RED BLOOD COUNT 5.43 x10^6/uL (3.50-5.40); RED CELL DISTRIBUTION WIDTH 16.6 % (11.5-14.5); WHITE BLOOD COUNT 11.3 x10^3/uL (4.0-11.0)
[2016-12-19 06:52] LABS: ALBUMIN 3.1 g/dL (3.4-5.0); ALBUMIN/GLOBULIN RATIO 0.7 (1.0-1.7); CALCIUM 8.7 mg/dL (8.5-10.1); CREATININE 0.8 mg/dL (0.6-1.0); GFR 79.9; POTASSIUM 4.1 mmol/L (3.5-5.1); TOTAL BILIRUBIN 0.8 mg/dL (0.2-1.0); TOTAL PROTEIN 7.8 g/dL (6.4-8.2)
[2016-12-19] MEDS: FENOFIBRATE NANOCRYSTALLIZED 145 MG TABLET PO SCH (08:32)
[2016-12-19] MEDS: LINAGLIPTIN 5 MG TABLET PO SCH (08:32)
[2016-12-19] MEDS: PANTOPRAZOLE 40 MG TABLET. PO SCH (08:34)
[2016-12-19] MEDS: LISINOPRIL 20 MG TABLET PO SCH (08:35)
[2016-12-19] MEDS: glipiZIDE 5 MG TABLET PO SCH ×2 (08:36→21:31)
[2016-12-19] MEDS: SPIRONOLACTONE 25 MG TABLET PO SCH (08:36)
[2016-12-19] MEDS: FUROSEMIDE 40 MG TABLET PO SCH (08:36)
[2016-12-19] MEDS: ASPIRIN ENTERIC COATED 81 MG TABLET.DR. PO SCH (08:37)
[2016-12-19] MEDS: CITALOPRAM 20 MG TABLET. PO SCH (08:37)
[2016-12-19] MEDS: amLODIPine BESYLATE 5 MG TABLET PO SCH (08:39)
[2016-12-19] MEDS: INSULIN ASPART 300 UNITS/3 ML INSULN.PEN SQ SCH ×4 (08:40→21:33)
[2016-12-19 08:50] VITALS: BP 150/81
--- NOTE | 2016-12-19 08:50 | PDOC ---
ANYA NARANJO DATABASE DESIGNER 12/19/16 0850: PROGRESS NOTES Diagnosis Problem Problems Medical Problems: (1) Acute congestive heart failure Status: Acute (2) Malignant hypertension Status: Acute (3) Morbid obesity Status: Acute (4) Uncontrolled diabetes mellitus Status: Acute Assessment Problems Medical Problems: (1) Acute congestive heart failure Status: Acute (2) Malignant hypertension Status: Acute (3) Morbid obesity Status: Acute (4) Uncontrolled diabetes mellitus Status: Acute 1. Acute on chronic CHF, systolic - prelim echocardiogram reveals EF ~35%. Continue ACEI. Good diuresis with Lasix. She reportedly had a cardiac cath ~ 3 years ago in [place] which failed to reveal any blockage. Will request records. 2. Asthma/COPD - probable PHTN - await echo and records from pulm. 3. Accelerated hypertension - increase antihypertensives, add carvedilol. 4. Diabetes mellitus - per PCP 5. JOSE ALBERTO - suggest home sleep study and resume CPAP gloria 6. morbid obesity - weight reduction encouraged, would consider bariatric eval outpatient Problems: Subjective feeling better, no chest pain, mild swelling, still coughing, complains of sore throat. Objective Vital Signs Date Time Temp Pulse Resp B/P (MAP) Pulse Ox O2 Delivery O2 Flow Rate FiO2 12/19/16 08:39 93 157/78 12/19/16 06:00 97.8 20 96 Nasal Cannula 3.0 Abdomen: Normal bowel sounds, Soft Heart: Regular rate, Normal S1, Normal S2 Extremities: Normal pulses, Other (1+ edema) General: Alert, Oriented X3, Cooperative, No acute distress Lungs: Clear to auscultation, Other (with decreased bases, no obvious crackles , no wheezes or rhonchi) Neuro: Normal speech, Strength at 5/5 X4 ext Psych/Mental Status: Mental status NL, Mood NL Review of Relevant I have reviewed the following items nell (where applicable) has been applied. Labs Laboratory Tests Test 12/17/16 22:40 12/18/16 02:00 12/18/16 06:16 12/18/16 08:01 White Blood Count 12.2 x10^3/uL (4.0-11.0) Red Blood Count 5.56 x10^6/uL (3.50-5.40) Hemoglobin 15.2 g/dL (12.0-15.5) Hematocrit 45.4 % (36.0-47.0) Mean Corpuscular Volume 82 fL (79-100) Mean Corpuscular Hemoglobin 27 pg (25-35) Mean Corpuscular Hemoglobin Concent 34 g/dL (31-37) Red Cell Distribution Width 16.3 % (11.5-14.5) Platelet Count 223 x10^3/uL (140-400) Neutrophils (%) (Auto) 67 % (31-73) Lymphocytes (%) (Auto) 25 % (24-48) Monocytes (%) (Auto) 5 % (0-9) Eosinophils (%) (Auto) 3 % (0-3) Basophils (%) (Auto) 0 % (0-3) Neutrophils # (Auto) 8.2 x10^3uL (1.8-7.7) Lymphocytes # (Auto) 3.0 x10^3/uL (1.0-4.8) Monocytes # (Auto) 0.6 x10^3/uL (0.0-1.1) Eosinophils # (Auto) 0.3 x10^3/uL (0.0-0.7) Basophils # (Auto) 0.0 x10^3/uL (0.0-0.2) Sodium Level 135 mmol/L (136-145) Potassium Level 4.2 mmol/L (3.5-5.1) Chloride Level 96 mmol/L (98-107) Carbon Dioxide Level 33 mmol/L (21-32) Anion Gap 6 (6-14) Blood Urea Nitrogen 12 mg/dL (7-20) Creatinine 0.8 mg/dL (0.6-1.0) Estimated GFR (Cockcroft-Gault) 79.9 BUN/Creatinine Ratio 15 (6-20) Glucose Level 330 mg/dL (70-99) Calcium Level 8.6 mg/dL (8.5-10.1) Total Bilirubin 0.4 mg/dL (0.2-1.0) Aspartate Amino Transf (AST/SGOT) 26 U/L (15-37) Alanine Aminotransferase (ALT/SGPT) 32 U/L (14-59) Alkaline Phosphatase 75 U/L (46-116) Creatine Kinase 58 U/L (26-192) Creatine Kinase MB (Mass) 0.8 ng/mL (0.0-3.6) Creatine Kinase MB Relative Index 1.4 % (0-4) Troponin I Quantitative 0.031 ng/mL (0-0.055) [id number]-Type Natriuretic Peptide 217 pg/mL (0-124) Total Protein 7.7 g/dL (6.4-8.2) Albumin 3.4 g/dL (3.4-5.0) Albumin/Globulin Ratio 0.8 (1.0-1.7) Nasal Screen MRSA (PCR) Negative (Negative) Glucose (Fingerstick) 332 mg/dL (70-99) 321 mg/dL (70-99) Test 12/18/16 09:23 12/18/16 12:10 12/18/16 16:41 12/18/16 20:55 Maternal Serum HCG Beta Subunit < 1 mIU/mL (0-6) Glucose (Fingerstick) 260 mg/dL (70-99) 239 mg/dL (70-99) 283 mg/dL (70-99) Test 12/19/16 06:17 12/19/16 08:12 White Blood Count 11.3 x10^3/uL (4.0-11.0) Red Blood Count 5.43 x10^6/uL (3.50-5.40) Hemoglobin 14.8 g/dL (12.0-15.5) Hematocrit 44.9 % (36.0-47.0) Mean Corpuscular Volume 83 fL (79-100) Mean Corpuscular Hemoglobin 27 pg (25-35) Mean Corpuscular Hemoglobin Concent 33 g/dL (31-37) Red Cell Distribution Width 16.6 % (11.5-14.5) Platelet Count 219 x10^3/uL (140-400) Neutrophils (%) (Auto) 69 % (31-73) Lymphocytes (%) (Auto) 23 % (24-48) Monocytes (%) (Auto) 5 % (0-9) Eosinophils (%) (Auto) 2 % (0-3) Basophils (%) (Auto) 1 % (0-3) Neutrophils # (Auto) 7.9 x10^3uL (1.8-7.7) Lymphocytes # (Auto) 2.6 x10^3/uL (1.0-4.8) Monocytes # (Auto) 0.6 x10^3/uL (0.0-1.1) Eosinophils # (Auto) 0.3 x10^3/uL (0.0-0.7) Basophils # (Auto) 0.1 x10^3/uL (0.0-0.2) Sodium Level 134 mmol/L (136-145) Potassium Level 4.1 mmol/L (3.5-5.1) Chloride Level 97 mmol/L (98-107) Carbon Dioxide Level 37 mmol/L (21-32) Anion Gap 0 (6-14) Blood Urea Nitrogen 11 mg/dL (7-20) Creatinine 0.8 mg/dL (0.6-1.0) Estimated GFR (Cockcroft-Gault) 79.9 BUN/Creatinine Ratio 14 (6-20) Glucose Level 238 mg/dL (70-99) Calcium Level 8.7 mg/dL (8.5-10.1) Total Bilirubin 0.8 mg/dL (0.2-1.0) Aspartate Amino Transf (AST/SGOT) 20 U/L (15-37) Alanine Aminotransferase (ALT/SGPT) 29 U/L (14-59) Alkaline Phosphatase 66 U/L (46-116) Total Protein 7.8 g/dL (6.4-8.2) Albumin 3.1 g/dL (3.4-5.0) Albumin/Globulin Ratio 0.7 (1.0-1.7) Glucose (Fingerstick) 214 mg/dL (70-99) Medications Current Medications Labetalol HCl (Normodyne) 20 mg 1X ONCE IVP Last administered on 12/17/16 23: 00; Start 12/17/16 at 22:15; Stop 12/17/16 at 22:16; Status DC Hydralazine HCl (Apresoline) 10 mg 1X ONCE IV Last administered on 12/18/16 01:10; Start 12/18/16 at 00:00; Stop 12/18/16 at 01:11; Status DC Furosemide (Lasix) 40 mg 1X ONCE IVP Last administered on 12/18/16 01:10; Start 12/18/16 at 00:00; Stop 12/18/16 at 01:11; Status DC Ondansetron HCl (Zofran) 4 mg PRN Q4HRS PRN IV NAUSEA/VOMITING; Start 12/18/16 at 00:30; Stop 12/19/16 at 00:29; Status DC Acetaminophen (Tylenol) 650 mg PRN Q4HRS PRN PO FEVER Last administered on 12/18 22:12; Start 12/18/16 at 00:30; Stop 12/19/16 at 00:29; Status DC Labetalol HCl (Normodyne) 20 mg PRN Q2HR PRN IVP HYPERTENSION, SEE COMMENTS; Start 12/18/16 at 00:30 Hydralazine HCl (Apresoline) 10 mg PRN Q4HRS PRN IV ELEVATED BP, SEE COMMENTS Last administered on 12/18/16 05:20; Start 12/18/16 at 00:30 Insulin Aspart (NovoLOG) 0-7 UNITS TIDACHC SQ Last administered on 12/19/16 08:40; Start 12/18/16 at 08:15 Dextrose 12.5 gm PRN Q15MIN PRN IV SEE COMMENTS; Start 12/18/16 at 08:15 Amlodipine Besylate (Norvasc) 5 mg DAILY PO Last administered on 12/19/16 08: 39; Start 12/18/16 at 09:30 Lisinopril (Prinivil) 10 mg DAILY PO Last administered on 12/18/16 10:47; Start 12/18/16 at 10:00; Stop 12/18/16 at 13:10; Status DC Amlodipine Besylate (Norvasc) 5 mg DAILY PO ; Start 12/19/16 at 09:00; Stop at 09:00; Status DC Aspirin (Aspirin Enteric Coated) 81 mg DAILY PO Last administered on 08:37; Start 12/18/16 at 13:15 Furosemide (Lasix) 40 mg DAILY PO Last administered on 12/19/16 08:36; Start 12/18/16 at 13:15 Glipizide (Glucotrol) 5 mg BID PO Last administered on 12/19/16 08:36; Start 12/18/16 at 21:00 Spironolactone (Aldactone) 25 mg DAILY PO Last administered on 12/19/16 08:36 ; Start 12/18/16 at 13:15 Atorvastatin Calcium (Lipitor) 40 mg QHS PO Last administered on 12/18/16 20: 52; Start 12/18/16 at 21:00 Citalopram Hydrobromide (CeleXA) 40 mg DAILY PO Last administered on 08:37; Start 12/18/16 at 13:15 Fenofibrate (Tricor) 145 mg DAILY PO Last administered on 12/19/16 08:32; Start 12/18/16 at 13:15 Lisinopril (Prinivil) 40 mg DAILY PO Last administered on 12/19/16 08:35; Start 12/19/16 at 09:00 Pantoprazole Sodium (Protonix) 40 mg DAILYAC PO Last administered on 08:34; Start 12/18/16 at 13:15 Linagliptin (Tradjenta) 5 mg DAILY PO Last administered on 12/19/16 08:32; Start 12/18/16 at 13:15 Lisinopril (Prinivil) 30 mg 1X ONCE PO Last administered on 12/18/16 13:29; Start 12/18/16 at 13:15; Stop 12/18/16 at 13:16; Status DC Active Scripts Active [place] 5-325 Tablet (Hydrocodone Bit/Acetaminophen) 1 Each Tablet 1-2 Tab PO Q6HRS PRN Reported Atorvastatin Calcium 40 Mg Tablet 1 Tab PO DAILY Onglyza (Saxagliptin Hcl) 5 Mg Tablet 1 Tab PO DAILY Lisinopril 40 Mg Tablet 1 Tab PO DAILY Glipizide 5 Mg Tablet 1 Tab PO BID Furosemide 40 Mg Tablet 1 Tab PO DAILY Fenofibrate 160 Mg Tablet 1 Tab PO DAILY Citalopram Hbr (Citalopram Hydrobromide) 40 Mg Tablet 40 Mg PO DAILY Amlodipine Besylate 5 Mg Tablet 1 PO DAILY Aspir-Low (Aspirin) 81 Mg Tablet. 1 Tab PO DAILY Spironolactone 25 Mg Tablet 1 PO DAILY Omeprazole 40 Mg Capsule.dr 1 Cap PO DAILY Vitals/I & O Vital Sign - Last 24 Hours 12/18/16 12/18/16 12/18/16 12/18/16 09:00 09:45 09:46 10:45 Pulse 102 102 106 Resp 22 22 B/P (MAP) 182/105 (130) 182/105 193/117 (142) Pulse Ox 98 98 O2 Delivery Mask Nasal Cannula Nasal Cannula O2 Flow Rate 2.0 2.0 2.0 12/18/16 12/18/16 12/18/16 12/18/16 10:47 11:54 13:29 13:34 Pulse 106 106 102 102 Resp 22 22 B/P (MAP) 193/117 196/104 (134) 177/90 177/90 (119) Pulse Ox 97 97 O2 Delivery Nasal Cannula Nasal Cannula O2 Flow Rate 2.0 2.0 12/18/16 12/18/16 12/18/16 12/18/16 14:54 17:10 19:25 19:25 Temp 97.4 Pulse 112 107 111 Resp 22 22 22 B/P (MAP) 179/86 (117) 146/83 (104) 176/86 (116) Pulse Ox 97 96 97 O2 Delivery Nasal Cannula Nasal Cannula Nasal Cannula Nasal Cannula O2 Flow Rate 2.0 2.0 2.0 2.0 12/18/16 12/19/16 12/19/16 12/19/16 22:50 06:00 08:35 08:39 Temp 97.3 97.8 Pulse 104 93 93 93 Resp 22 20 B/P (MAP) 147/79 (101) 157/78 (104) 157/78 157/78 Pulse Ox 97 96 O2 Delivery Nasal Cannula Nasal Cannula O2 Flow Rate 2.[address] MD 12/19/161818: PROGRESS NOTES Assessment Patient seen and examined. Agree with PHOTO ENGRAVER's assessment and plan. Acute on chronic systolic heart failure better compensated with diuresis. 2D echo showed LVEF 35-40%. We will obtain records from last cath 3 years ago We will consider outpatient MPI BP better controlled. Continue current medical regimen. Problems: ANYA NARANJO APRN Dec 19, 2016 08:[address] MD Dec 19, 2016 18:19
[2016-12-19] MEDS ORDERED: amLODIPine BESYLATE 5 MG TABLET PO SCH (09:00)
[2016-12-19] MEDS ORDERED: BENZOCAINE/MENTHOL LOZENGE 16'S BOX. PO PRN (10:00)
[2016-12-19] MEDS: CARVEDILOL 6.25 MG TABLET PO SCH ×2 (10:09→17:32)
--- NOTE | 2016-12-19 10:22 | RAD ---
Exam performed: 2 views of the chest. Indication: CHF Date of Service:12/19/2016 11:08 AM . Comparison : One view chest from 12/17/16. Findings: PA and lateral radiographs of the chest reveal a stable moderately enlarged cardiomediastinal contour. Pulmonary vascularity is congested. Prominent interstitial markings are seen in both lungs. No pleural fluid is seen. The visualized osseous structures are unremarkable. Impression: Cardiomegaly with low-grade CHF
--- NOTE | 2016-12-19 11:30 | CARD ---
APPROVED REPORT EXAM: Two-dimensional and M-mode echocardiogram with Doppler and color Doppler. Other Information Quality : Technically Limited Rhythm : NSRTechnically limited study due to body habitus. INDICATION Congestive Heart Failure 2D DIMENSIONS RVDd3.8 (2.9-3.5cm)Left Atrium(2D)4.1 (1.6-4.0cm) IVSd1.3 (0.7-1.1cm)Aortic Root(2D)3.3 (2.0-3.7cm) LVDd6.4 (3.9-5.9cm)LVOT Diameter2.2 (1.8-2.4cm) PWd1.3 (0.7-1.1cm)LVDs5.2 (2.5-4.0cm) FS (%) 17.6 %SV73.8 ml LVEF(%)35.8 (>50%) Aortic Valve AoV Peak Dajuan.124.1cm/sAoV VTI20.9cm AO Peak GR.6.2mmHgLVOT Peak Dajuan.102.5cm/s LVOT VTI 18.56cmAO Mean GR.4mmHg KYE (VMAX)3.95qh5WTQ (VTI)3.35cm2 Mitral Valve MV E Phecofvr12.1cm/sMV DECEL SCLE081tf MV A Qefposth55.3cm/sE/A Ratio1.0 LEFT VENTRICLE The Left Ventricle is mildly dilated. There is borderline to mild concentric left ventricular hypertr ophy. Left ventricle systolic function is moderately impaired. The Ejection Fraction is 35-40%. There is global hypokinesis of the left ventricle. Tissue Doppler imaging reveals mild left ventricular di astolic dysfunction. RIGHT VENTRICLE The right ventricle is mildly dilated. The right ventricular systolic function is normal. ATRIA The left atrium is borderline dilated. The right atrium size is normal. The interatrial septum is int act with no evidence for an atrial septal defect or patent foramen ovale as noted on 2-D or Doppler i maging. AORTIC VALVE The aortic valve is not well visualized. Doppler and Color Flow revealed no significant aortic regurg itation. There is no significant aortic valvular stenosis. MITRAL VALVE The mitral valve is normal in structure and function. There is no mitral valve stenosis. Doppler and Color Flow revealed no mitral valve regurgitation noted. TRICUSPID VALVE The tricuspid valve is normal in structure and function. Doppler and Color Flow revealed no tricuspid valve regurgitation noted. Unable to estimate PA pressure. There is no tricuspid valve stenosis. PULMONIC VALVE The pulmonic valve is not well visualized. Doppler and Color Flow revealed no pulmonic valvular regur gitation. There is no pulmonic valvular stenosis. GREAT VESSELS The aortic root is normal in size. The ascending aorta is normal in size. Pulmonary veins not recorde d. The IVC was not visualized. PERICARDIAL EFFUSION There is no evidence of significant pericardial effusion. Critical Notification Date: 12/19/2016 Time: 08:19 Other Discipline : Rachelle Phillips APRN Critical Value: Yes <Conclusion> Left ventricle systolic function is moderately impaired. The Ejection Fraction is 35-40%. There is global hypokinesis of the left ventricle. No significant pulmonary HTN Wall motion difficult to determine due to poor image quality. Consider repeat limited echo with contr ast.
[2016-12-19 13:41] LABS: THYROID STIM HORMONE (TSH) 1.858 uIU/mL (0.358-3.740)
[2016-12-19 17:42] VITALS: BP 142/87
[2016-12-19 20:45] VITALS: BP 128/74
[2016-12-19] MEDS: ATORVASTATIN CALCIUM 20 MG TABLET PO SCH (21:31)
[2016-12-19 23:33] VITALS: BP 116/67
--- NOTE | 2016-12-20 00:39 | PN ---
DATE: 12/19/2016 SUBJECTIVE: The patient is resting slightly propped up in bed comfortably and in no apparent distress. She denied any complaint. The nursing staff did not voice any concerns. She apparently was seen by the Cardiology team, who started her on Coreg. She had a chest x-ray, which showed that she continued to have stable to moderately enlarged cardiomediastinal contour, pulmonary vascularity is congested. Prominent interstitial markings are seen in both lungs. There is no pleural effusion, no pneumothorax. She has had also an echocardiogram that was done, the results of which showed that she has left ventricular systolic function that is moderately impaired and an ejection fraction of 35-40% with global hypokinesis of the left ventricle. No significant pulmonary hypertension or wall motion difficulty determined due to poor image quality, consider repeat limited echo with contrast. PHYSICAL EXAMINATION: GENERAL: When I examined her, she looked well and was clearly in no apparent respiratory distress, pale, but no jaundice, cyanosed, or thyromegaly. No jugular venous distention. No limb edema. VITAL SIGNS: Her heart rate was 93, blood pressure 157/78, temperature was 97.8, respiratory rate 20, and oxygen saturation was 96% on 3 liters oxygen by nasal cannula. HEAD, EYES, EARS, NOSE, AND THROAT: Showed normocephalic, atraumatic. NECK: Supple. HEART: Showed normal first and second heart sounds with no gallop, rub, or murmur. CHEST: Clear to auscultation. No crepitation or rhonchi. ABDOMEN: Distended, soft, nontender. NEUROLOGIC: She was sleepy, but arousable. All cranial nerves are intact. She moves extremities without difficulty. She ambulates without assistance or assistive devices. Her intake over the last 24 hours was 2500, output was 4000. LABORATORY DATA: As of this morning showed a serum sodium 134, potassium 4.1, chloride 97, bicarbonate 37, anion gap 0, BUN 11, creatinine 0.6, estimated GFR was 80 mL per minute. Her glucose was 238. Calcium was 8.7. Total bilirubin, AST, ALT, alkaline phosphatase were normal. Total protein was 7.8, albumin 3.1. Her white cell count was down to 11,300, hemoglobin 14.8, hematocrit 44.9, MCV 83, and platelet count 219,000. ASSESSMENT AND PLAN: 1. Acute congestive heart failure. 2. Malignant hypertension, improving. Her blood pressure is definitely much better after we increased the amlodipine, put her back on her TREVON inhibitor, and added Coreg. 3. Morbid obesity, obstructive sleep apnea, and poorly controlled type 2 diabetes mellitus, bronchial asthma/chronic obstructive pulmonary disease; however, her echocardiogram did not show any evidence of pulmonary hypertension. CESAR TREJO MD DR: ROSALINA/joan JOB#: [id number] / [id number]
[2016-12-20 04:00] VITALS: BP 140/72
[2016-12-20 04:09] LABS: HEMOGLOBIN A1C 9.4 % (4.8-5.6)
[2016-12-20 06:06] LABS: HEMATOCRIT 45.2 % (36.0-47.0); HEMOGLOBIN 14.9 g/dL (12.0-15.5); RED BLOOD COUNT 5.41 x10^6/uL (3.50-5.40); RED CELL DISTRIBUTION WIDTH 16.2 % (11.5-14.5); WHITE BLOOD COUNT 12.7 x10^3/uL (4.0-11.0)
[2016-12-20 06:12] LABS: CALCIUM 8.8 mg/dL (8.5-10.1); CREATININE 0.8 mg/dL (0.6-1.0); GFR 79.9; POTASSIUM 4.2 mmol/L (3.5-5.1)
[2016-12-20 08:00] VITALS: BP 140/72
[2016-12-20] MEDS: glipiZIDE 5 MG TABLET PO SCH (08:21)
[2016-12-20] MEDS: LINAGLIPTIN 5 MG TABLET PO SCH (08:21)
[2016-12-20] MEDS: FENOFIBRATE NANOCRYSTALLIZED 145 MG TABLET PO SCH (08:21)
[2016-12-20] MEDS: CITALOPRAM 20 MG TABLET. PO SCH (08:21)
[2016-12-20] MEDS: PANTOPRAZOLE 40 MG TABLET. PO SCH (08:21)
[2016-12-20] MEDS: LISINOPRIL 20 MG TABLET PO SCH (08:21)
[2016-12-20] MEDS: SPIRONOLACTONE 25 MG TABLET PO SCH (08:21)
[2016-12-20] MEDS: ASPIRIN ENTERIC COATED 81 MG TABLET.DR. PO SCH (08:21)
[2016-12-20] MEDS: FUROSEMIDE 40 MG TABLET PO SCH (08:21)
[2016-12-20] MEDS: amLODIPine BESYLATE 5 MG TABLET PO SCH (08:22)
[2016-12-20] MEDS: CARVEDILOL 6.25 MG TABLET PO SCH (08:22)
[2016-12-20] MEDS: INSULIN ASPART 300 UNITS/3 ML INSULN.PEN SQ SCH ×2 (08:26→11:30)
--- NOTE | 2016-12-20 08:59 | PDOC ---
ANYA NARANJO POST COMMANDER 12/20/16 0859: PROGRESS NOTES Diagnosis Problem Problems Medical Problems: (1) Acute congestive heart failure Status: Acute (2) Malignant hypertension Status: Acute (3) Morbid obesity Status: Acute (4) Uncontrolled diabetes mellitus Status: Acute Assessment Problems Medical Problems: (1) Acute congestive heart failure Status: Acute (2) Malignant hypertension Status: Acute (3) Morbid obesity Status: Acute (4) Uncontrolled diabetes mellitus Status: Acute 1. Acute on chronic CHF, systolic - EF 35% - 40 by echocardiogram. Continue ACEI/beta vladimir. Clinically improving, CXR continues to reveal low grade HF. IV lasix x 1 today. NICM by cardiac cath in 2010 with ERIKA II flow in all vessels suggestive of endothelial dysfunction. EF at that time was 30% Her weight currently exceeds the limit for both cath and imaging tables. Continue medical management at this time. 2. Asthma/COPD - per PCP 3. PHTN - moderate by echo in 2010, unable to assess PAS on current echo. 4. Accelerated hypertension - improving. Continue ACEI/Beta vladimir/CCB, increase as tolerated. 5. Diabetes mellitus - per PCP 6. JOSE ALBERTO - suggest home sleep study and resume CPAP gloria 7. morbid obesity - weight reduction encouraged, would consider bariatric eval outpatient Problems: Subjective improving. continues to have dyspnea on exertion. no chest pain, no palpitations. Objective Vital Signs Date Time Temp Pulse Resp B/P (MAP) Pulse Ox O2 Delivery O2 Flow Rate FiO2 12/20/16 08:22 90 140/72 12/20/16 08:00 Nasal Cannula 1.5 12/20/16 08:00 97.8 96 12/20/16 04:00 20 Abdomen: Normal bowel sounds, Soft Heart: Regular rate, Normal S1, Normal S2 Extremities: Normal pulses, Other (+1 edema) General: Alert, Oriented X3, Cooperative, No acute distress Lungs: Other (decreased bases) Neuro: Normal speech, Strength at 5/5 X4 ext Psych/Mental Status: Mental status NL, Mood NL Review of Relevant I have reviewed the following items nell (where applicable) has been applied. Labs Laboratory Tests Test 12/18/16 09:23 12/18/16 12:10 12/18/16 16:41 12/18/16 20:55 Maternal Serum HCG Beta Subunit < 1 mIU/mL (0-6) Glucose (Fingerstick) 260 mg/dL (70-99) 239 mg/dL (70-99) 283 mg/dL (70-99) Test 12/19/16 06:17 12/19/16 08:12 12/19/16 11:53 12/19/16 17:14 White Blood Count 11.3 x10^3/uL (4.0-11.0) Red Blood Count 5.43 x10^6/uL (3.50-5.40) Hemoglobin 14.8 g/dL (12.0-15.5) Hematocrit 44.9 % (36.0-47.0) Mean Corpuscular Volume 83 fL (79-100) Mean Corpuscular Hemoglobin 27 pg (25-35) Mean Corpuscular Hemoglobin Concent 33 g/dL (31-37) Red Cell Distribution Width 16.6 % (11.5-14.5) Platelet Count 219 x10^3/uL (140-400) Neutrophils (%) (Auto) 69 % (31-73) Lymphocytes (%) (Auto) 23 % (24-48) Monocytes (%) (Auto) 5 % (0-9) Eosinophils (%) (Auto) 2 % (0-3) Basophils (%) (Auto) 1 % (0-3) Neutrophils # (Auto) 7.9 x10^3uL (1.8-7.7) Lymphocytes # (Auto) 2.6 x10^3/uL (1.0-4.8) Monocytes # (Auto) 0.6 x10^3/uL (0.0-1.1) Eosinophils # (Auto) 0.3 x10^3/uL (0.0-0.7) Basophils # (Auto) 0.1 x10^3/uL (0.0-0.2) Sodium Level 134 mmol/L (136-145) Potassium Level 4.1 mmol/L (3.5-5.1) Chloride Level 97 mmol/L (98-107) Carbon Dioxide Level 37 mmol/L (21-32) Anion Gap 0 (6-14) Blood Urea Nitrogen 11 mg/dL (7-20) Creatinine 0.8 mg/dL (0.6-1.0) Estimated GFR (Cockcroft-Gault) 79.9 BUN/Creatinine Ratio 14 (6-20) Glucose Level 238 mg/dL (70-99) Hemoglobin A1c 9.4 % (4.8-5.6) Calcium Level 8.7 mg/dL (8.5-10.1) Total Bilirubin 0.8 mg/dL (0.2-1.0) Aspartate Amino Transf (AST/SGOT) 20 U/L (15-37) Alanine Aminotransferase (ALT/SGPT) 29 U/L (14-59) Alkaline Phosphatase 66 U/L (46-116) Total Protein 7.8 g/dL (6.4-8.2) Albumin 3.1 g/dL (3.4-5.0) Albumin/Globulin Ratio 0.7 (1.0-1.7) Triglycerides Level 153 mg/dL (0-150) Cholesterol Level 163 mg/dL (0-200) LDL Cholesterol, Calculated 98 mg/dL (0-100) VLDL Cholesterol, Calculated 30 mg/dL (0-40) Non-HDL Cholesterol Calculated 128 mg/dL (0-129) HDL Cholesterol 35 mg/dL (40-60) Cholesterol/HDL Ratio 4.0 Thyroid Stimulating Hormone (TSH) 1.858 uIU/mL (0.358-3.740) Glucose (Fingerstick) 214 mg/dL (70-99) 177 mg/dL (70-99) 168 mg/dL (70-99) Test 12/19/16 21:29 12/20/16 05:43 12/20/16 07:47 Glucose (Fingerstick) 189 mg/dL (70-99) 188 mg/dL (70-99) White Blood Count 12.7 x10^3/uL (4.0-11.0) Red Blood Count 5.41 x10^6/uL (3.50-5.40) Hemoglobin 14.9 g/dL (12.0-15.5) Hematocrit 45.2 % (36.0-47.0) Mean Corpuscular Volume 84 fL (79-100) Mean Corpuscular Hemoglobin 28 pg (25-35) Mean Corpuscular Hemoglobin Concent 33 g/dL (31-37) Red Cell Distribution Width 16.2 % (11.5-14.5) Platelet Count 234 x10^3/uL (140-400) Sodium Level 135 mmol/L (136-145) Potassium Level 4.2 mmol/L (3.5-5.1) Chloride Level 98 mmol/L (98-107) Carbon Dioxide Level 37 mmol/L (21-32) Anion Gap 0 (6-14) Blood Urea Nitrogen 13 mg/dL (7-20) Creatinine 0.8 mg/dL (0.6-1.0) Estimated GFR (Cockcroft-Gault) 79.9 Glucose Level 170 mg/dL (70-99) Calcium Level 8.8 mg/dL (8.5-10.1) Medications Current Medications Labetalol HCl (Normodyne) 20 mg 1X ONCE IVP Last administered on 12/17/16 23: 00; Start 12/17/16 at 22:15; Stop 12/17/16 at 22:16; Status DC Hydralazine HCl (Apresoline) 10 mg 1X ONCE IV Last administered on 12/18/16 01:10; Start 12/18/16 at 00:00; Stop 12/18/16 at 01:11; Status DC Furosemide (Lasix) 40 mg 1X ONCE IVP Last administered on 12/18/16 01:10; Start 12/18/16 at 00:00; Stop 12/18/16 at 01:11; Status DC Ondansetron HCl (Zofran) 4 mg PRN Q4HRS PRN IV NAUSEA/VOMITING; Start 12/18/16 at 00:30; Stop 12/19/16 at 00:29; Status DC Acetaminophen (Tylenol) 650 mg PRN Q4HRS PRN PO FEVER Last administered on 12/18 22:12; Start 12/18/16 at 00:30; Stop 12/19/16 at 00:29; Status DC Labetalol HCl (Normodyne) 20 mg PRN Q2HR PRN IVP HYPERTENSION, SEE COMMENTS; Start 12/18/16 at 00:30 Hydralazine HCl (Apresoline) 10 mg PRN Q4HRS PRN IV ELEVATED BP, SEE COMMENTS Last administered on 12/18/16 05:20; Start 12/18/16 at 00:30 Insulin Aspart (NovoLOG) 0-7 UNITS TIDACHC SQ Last administered on 12/20/16 08:26; Start 12/18/16 at 08:15 Dextrose 12.5 gm PRN Q15MIN PRN IV SEE COMMENTS; Start 12/18/16 at 08:15 Amlodipine Besylate (Norvasc) 5 mg DAILY PO Last administered on 12/20/16 08: 22; Start 12/18/16 at 09:30 Lisinopril (Prinivil) 10 mg DAILY PO Last administered on 12/18/16 10:47; Start 12/18/16 at 10:00; Stop 12/18/16 at 13:10; Status DC Amlodipine Besylate (Norvasc) 5 mg DAILY PO ; Start 12/19/16 at 09:00; Stop at 09:00; Status DC Aspirin (Aspirin Enteric Coated) 81 mg DAILY PO Last administered on 08:21; Start 12/18/16 at 13:15 Furosemide (Lasix) 40 mg DAILY PO Last administered on 12/20/16 08:21; Start 12/18/16 at 13:15 Glipizide (Glucotrol) 5 mg BID PO Last administered on 12/20/16 08:21; Start 12/18/16 at 21:00 Spironolactone (Aldactone) 25 mg DAILY PO Last administered on 12/20/16 08:21 ; Start 12/18/16 at 13:15 Atorvastatin Calcium (Lipitor) 40 mg QHS PO Last administered on 12/19/16 21: 31; Start 12/18/16 at 21:00 Citalopram Hydrobromide (CeleXA) 40 mg DAILY PO Last administered on 08:21; Start 12/18/16 at 13:15 Fenofibrate (Tricor) 145 mg DAILY PO Last administered on 12/20/16 08:21; Start 12/18/16 at 13:15 Lisinopril (Prinivil) 40 mg DAILY PO Last administered on 12/20/16 08:21; Start 12/19/16 at 09:00 Pantoprazole Sodium (Protonix) 40 mg DAILYAC PO Last administered on 08:21; Start 12/18/16 at 13:15 Linagliptin (Tradjenta) 5 mg DAILY PO Last administered on 12/20/16 08:21; Start 12/18/16 at 13:15 Lisinopril (Prinivil) 30 mg 1X ONCE PO Last administered on 12/18/16 13:29; Start 12/18/16 at 13:15; Stop 12/18/16 at 13:16; Status DC Carvedilol (Coreg) 6.25 mg BIDWMEALS PO Last administered on 12/20/16 08:22; Start 12/19/16 at 09:30 Throat Lozenges (Cepacol Sore Throat Lozenge) 1 shade PRN Q2HR PRN PO SORE THROAT Last administered on 12/19/16 10:09; Start 12/19/16 at 10:00 Active Scripts Active Dodge 5-325 Tablet (Hydrocodone Bit/Acetaminophen) 1 Each Tablet 1-2 Tab PO Q6HRS PRN Reported Atorvastatin Calcium 40 Mg Tablet 1 Tab PO DAILY Onglyza (Saxagliptin Hcl) 5 Mg Tablet 1 Tab PO DAILY Lisinopril 40 Mg Tablet 1 Tab PO DAILY Glipizide 5 Mg Tablet 1 Tab PO BID Furosemide 40 Mg Tablet 1 Tab PO DAILY Fenofibrate 160 Mg Tablet 1 Tab PO DAILY Citalopram Hbr (Citalopram Hydrobromide) 40 Mg Tablet 40 Mg PO DAILY Amlodipine Besylate 5 Mg Tablet 1 PO DAILY Aspir-Low (Aspirin) 81 Mg Tablet.dr 1 Tab PO DAILY Spironolactone 25 Mg Tablet 1 PO DAILY Omeprazole 40 Mg Capsule.dr 1 Cap PO DAILY Vitals/I & O Vital Sign - Last 24 Hours 12/19/16 12/19/16 12/19/16 12/19/16 10:09 17:32 17:42 20:00 Pulse 93 93 100 Resp 22 B/P (MAP) 157/78 157/78 142/87 (105) Pulse Ox 94 O2 Delivery Nasal Cannula Nasal Cannula O2 Flow Rate 1.5 1.5 12/19/16 12/19/16 12/20/16 12/20/16 20:45 23:33 04:00 08:00 Temp 97.9 98.1 97.8 97.8 Pulse 100 94 90 90 Resp 20 20 20 B/P (MAP) 128/74 (92) 116/67 (83) 140/72 (94) 140/72 (94) Pulse Ox 96 94 96 96 O2 Delivery Nasal Cannula Nasal Cannula Nasal Cannula Nasal Cannula O2 Flow Rate 1.5 1.5 2.5 1.5 12/20/16 12/20/16 12/20/16 12/20/16 08:00 08:21 08:22 08:22 Pulse 90 90 90 B/P (MAP) 140/72 140/72 140/72 O2 Delivery Nasal Cannula O2 Flow Rate 1.5 AARON REDDING MD 12/20/16 1237: PROGRESS NOTES Review of Relevant Pt. seen and examined. 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 No acute events overnight. Supportive care from CV perspective. Morbid obesity has lead to significant problems for her, with some motivation perhaps she may qualify for gastric bypass. ANYA NARANJO APRN Dec 20, 2016 08:59 AARNO REDDING MD Dec 20, 2016 12:37
[2016-12-20] MEDS ORDERED: FUROSEMIDE 20 MG/2 ML VIAL IVP ONE (10:15)
[2016-12-20 11:24] VITALS: BP 140/71
--- NOTE | 2016-12-21 01:12 | DS ---
DATE OF DISCHARGE: 12/20/2016 HOSPITAL COURSE: The patient is a 40-year-old female patient, who was admitted with increasing shortness of breath, cough with whitish sputum. She also complained of orthopnea, bilateral lower extremity edema. She was evaluated in the Emergency Room and was diagnosed with congestive heart failure, likely left ventricular diastolic dysfunction. She transpired that she was noncompliant and she has malignant hypertension. She has also morbid obesity and poorly controlled type 2 diabetes. In fact, the patient does not even know her doses of her medications. Her brother eventually brought all her medications, we did start her on all her medications and we did consult the Cardiology team. Her echocardiogram in fact showed that her left ventricular systolic function was moderately impaired with an ejection fraction of 35-40%. There is global hypokinesis of the left ventricle. No significant pulmonary hypertension, wall motion difficult to determine due to poor image quality. Coreg was added to her antihypertensive medications and we continued on diuresing her. She did actually very well. PHYSICAL EXAMINATION: GENERAL: When I saw her today, she looked well and was clearly in no apparent respiratory distress, pale, but no jaundice, cyanosis, or thyromegaly. No jugular venous distention. No limb edema. VITAL SIGNS: Her heart rate was 91, blood pressure 140/71, temperature was 97.5, respiratory rate was 22, and oxygen saturation was 97% on 1.5 liters of oxygen. HEAD, EYES, EARS, NOSE, AND THROAT: Showed normocephalic, atraumatic. NECK: Supple. HEART: Showed normal first and second heart sounds. No gallop, rub, or murmur. CHEST: Clear to auscultation. No crepitation or rhonchi. ABDOMEN: Distended, soft, nontender. NEUROLOGIC: She is more awake, alert, responding appropriately. Cranial nerves intact. She moves extremities without difficulty. She ambulates without assistance or assistive devices. Her intake over the last 24 hours was 2500, output was 4000. LABORATORY DATA: As of this morning showed a white cell count 12,700, hemoglobin 14.9, hematocrit 45, MCV 84, and platelet count 234,000. Her chemistry showed a serum sodium 135, potassium 4.2, chloride 98, bicarbonate 37, anion gap of 0, BUN 13, creatinine 0.8, estimated GFR was 80 mL per minute. Her glucose was 170. Calcium was 8.8. Her urinalysis was unremarkable. Her chest x-ray revealed moderately enlarged cardiomediastinal contour, pulmonary vascularity congested, prominent interstitial markings are seen in both lungs. However, there is no pleural effusion and/or pneumothorax. DISCHARGE MEDICATIONS: The patient was discharged on the following medications: Amlodipine 5 mg once a day, aspirin to 81 mg once a day, atorvastatin 40 mg at bedtime, citalopram hydrobromide 40 mg once a day, fenofibrate 160 mg once a day, furosemide 40 mg once a day, glipizide 5 mg twice a day, lisinopril 40 mg once a day, hydrocodone/APAP 5/325 one tablet every 6 hours, omeprazole 40 mg once a day, Onglyza 5 mg once a day, and spironolactone 25 mg once a day. She was also started on Coreg 6.25 mg twice a day with food. FINAL DISCHARGE DIAGNOSES: 1. Acute on-chronic systolic congestive heart failure. 2. Malignant hypertension, improving. 3. Morbid obesity, obstructive sleep apnea. 4. Poorly controlled type 2 diabetes. 5. Bronchial asthma/chronic obstructive pulmonary disease. Arrangements have been made for her to have a sleep study at [facility] and she will contact the Cardiology team for further evaluation including perhaps stress test and/or cardiac catheterization as an outpatient. She would be discharged with home health. CESAR TREJO MD DR: ROSALINA/joan JOB#: [id number] / [id number]
== END 2016-12-20 13:58 | disposition home health service (06) | DRG 291 ==
LOC: ER 21:28 → ICU 23:37
PROVIDERS: ADMIT Family Medicine; ATTEND Family Medicine
DX: I13.0 Hypertensive heart and chronic kidney disease with heart failure and stage 1 through stage 4 chronic kidney disease, or unspecified chronic kidney disease (principal); I50.43 Acute on chronic combined systolic (congestive) and diastolic (congestive) heart failure; E11.65 Type 2 diabetes mellitus with hyperglycemia; I42.9 Cardiomyopathy, unspecified; Z68.44 Body mass index [BMI] 60.0-69.9, adult; E28.2 Polycystic ovarian syndrome; E66.01 Morbid (severe) obesity due to excess calories; E78.5 Hyperlipidemia, unspecified; G47.33 Obstructive sleep apnea (adult) (pediatric); F41.9 Anxiety disorder, unspecified; F32.9 Major depressive disorder, single episode, unspecified; J45.909 Unspecified asthma, uncomplicated; K21.9 Gastro-esophageal reflux disease without esophagitis; J44.9 Chronic obstructive pulmonary disease, unspecified; Z79.899 Other long term (current) drug therapy; Z82.49 Family history of ischemic heart disease and other diseases of the circulatory system; Z83.3 Family history of diabetes mellitus; Z87.891 Personal history of nicotine dependence; Z91.19 Patient's noncompliance with other medical treatment and regimen; Z88.0 Allergy status to penicillin; Z90.89 Acquired absence of other organs; Z82.5 Family history of asthma and other chronic lower respiratory diseases; D17.79 Benign lipomatous neoplasm of other sites; N18.2 Chronic kidney disease, stage 2 (mild)
CPT/HCPCS: 36415; 71010; 71020; 80048; 80053; 80061; 81001; 82553; 82947; 83036; 83880; 84443; 84484; 84702; 85025; 85027; 87641; 93005; 93306; 94799; 96374; J0360; J1815; J1940; J3490; 99285-25

== ENCOUNTER 2017-03-16 17:04 | Emergency (ER) | payer OTHER ==
[~2017-03-16] VITALS: Ht 167.6 cm; Wt 190.5 kg
[~2017-03-16 17:04] MED LIST changes: +AMLO5TAB2 PO; +ASPI81TA50 PO; +ATOR40TA59 PO; +CITA10TA4 PO; +CITA40TA5 PO; +FENO145T2 PO; +FENO160T PO; +FURO20TA3 PO; +FURO40TA4 PO; +GLIP5TAB10 PO; +LISI10TA2 PO; +LISI40TA PO; +OMEP40CA5 PO; +SAXA5TAB PO; +SPIR25TA3 PO
--- NOTE | 2017-03-16 17:58 | PHYS DOC ---
Past History Past Medical History: Anxiety, CHF, COPD, Depression, Diabetes, GERD, Heart Disease, Hypertension, Ovarian Cyst, Other Past Surgical History: No Surgical History Smoking: Cigarettes Alcohol Use: Occasionally Drug Use: None Adult General Chief Complaint Chief Complaint: urine incontinence [facility] 41-year-old female patient with morbid obesity and PCO complaining of one episode of urinary incontinence this morning. Patient states he was able to urinate after that without problem. Patient denies fever and chills, nausea and vomiting, vaginal bleeding or discharge. Patient states her last period was in January and she has irregular menstruation and denies or sexual activity. Review of Systems Review of Systems Constitutional: Denies fever or chills [] Eyes: Denies change in visual acuity, redness, or eye pain [] HENT: Denies nasal congestion or sore throat [] Respiratory: Denies cough or shortness of breath [] Cardiovascular: No additional information not addressed in HPI [] GI: Denies abdominal pain, nausea, vomiting, bloody stools or diarrhea [] : Denies dysuria or hematuria [] Musculoskeletal: Denies back pain or joint pain [] Integument: Denies rash or skin lesions [] Neurologic: Denies headache, focal weakness or sensory changes [] Endocrine: Denies polyuria or polydipsia [] All other systems were reviewed and found to be within normal limits, except as documented in this note. Allergies Allergies Allergies Coded Allergies Type Severity Reaction Last Updated Verified Penicillins Allergy Severe sob 10/26/14 No Physical Exam Physical Exam Constitutional: Well nourished, no acute distress, non-toxic appearance, morbidly obese. [] HENT: Normocephalic, atraumatic, bilateral external ears normal, oropharynx moist, no oral exudates, nose normal. [] Eyes: PERRLA, EOMI, conjunctiva normal, no discharge. [] Neck: Normal range of motion, no tenderness, supple, no stridor. [] Cardiovascular:Heart rate regular rhythm, no murmur [] Lungs & Thorax: Bilateral breath sounds clear to auscultation [] Abdomen: Bowel sounds normal, soft, no tenderness, no masses, no pulsatile masses. [] Skin: Warm, dry, no erythema, no rash. [] Back: No tenderness, no CVA tenderness. [] Extremities: No tenderness, no cyanosis, no clubbing, ROM intact, no edema. [] Neurologic: Alert and oriented X 3, normal motor function, normal sensory function, no focal deficits noted. [] Psychologic: Affect normal, judgement normal, mood normal. [] EKG EKG [] Radiology/Procedures Radiology/Procedures [] Course & Med Decision Making Course & Med Decision Making Pertinent Labs are pending. Patient's care transferred to Dr. Mendoza at 1800 Hx: pt told me that she knew she was going to urinate and while she was getting out to go to bathroom that is when she lost her urine. Only one episode. Patient denies any back pain abdominal pain pain with urination or unusual vaginal discharge. Patient denies any focal weakness or saddle anesthesia. Patient did describe some mild pain in between the fold of her pannus Constitutional: Well nourished, no acute distress, non-toxic appearance, morbidly obese. [] HENT: Normocephalic, atraumatic, Eyes: EOMI, conjunctiva normal, no discharge. [] Neck: Normal range of motion, trachea midline no stridor. [] Cardiovascular:Heart rate regular rhythm, no murmur, equal pulses, normal perfusion Lungs & Thorax: Bilateral breath sounds clear to auscultation, no tachypnea Abdomen: Bowel sounds normal, soft, no tenderness, no masses, no pulsatile masses. Signs of candidal infection in between the folds of the pannus, no clear sign of cellulitis. Mild diffuse tenderness to palpation without guarding or rebound in the low abdomen Skin: As above Back: No tenderness, no CVA tenderness. [] Extremities: No tenderness, no DVT, ROM intact, no edema. [] Neurologic: Alert and oriented X 3, normal motor function, ambulates in the ED with normal gait and without assistance, no focal deficits noted. Strength is equal and symmetric throughout, gross sensory is within normal limits Psychologic: Affect normal, judgement normal, mood normal. [] Pt states she already has powder for candidiasis but forgot to apply it today. [] Dragon Disclaimer Dragon Disclaimer This electronic medical record was generated, in whole or in part, using a voice recognition dictation system. Departure Departure: Impression: Primary Impression: Marycruz infection Additional Impression: Hematuria Disposition: 01 HOME, SELF-CARE Condition: STABLE Referrals: TONI FLORIAN DO (PCP) please follow up with your pcp for recheck/re-evaluation in 1-2 days Patient Instructions: Marycruz Infection, Adult, Hematuria-Brief Scripts Tramadol Hcl (TRAMADOL HCL) 50 Mg Tablet 50 MG PO PRN Q6HRS Y for PAIN for 2 Days, #6 TAB Prov: Kt MENDOZA MD 03/16/17 Problem Qualifiers EDSON HILLS MD Mar 16, 2017 17:58 Kt MENDOZA MD Mar 16, 2017 18:27
[2017-03-16 18:22] VITALS: BP 154/113
[2017-03-16 19:09] LABS: CLARITY,URINE HAZY; COLOR,URINE YELLOW
[2017-03-16 19:10] LABS: BACTERIA,URINE FEW /HPF (0-FEW); BILIRUBIN,URINE NEG (NEG); GLUCOSE,URINE 500 mg/dL (NEG); HYALINE CASTS, URINE MOD /HPF; NITRITE,URINE NEG (NEG); SQUAMOUS EPITHELIAL CELL,UR MANY /LPF; UROBILINOGEN,URINE 0.2 mg/dL (0.2 mg/dL)
[2017-03-16 19:11] LABS: YEAST,URINE PRESENT /HPF
[2017-03-16] MEDS ORDERED: TRAM50TA PO (19:18)
== END 2017-03-16 19:42 | disposition home or self-care (01) ==
LOC: ER 17:04
DX: B37.9 Candidiasis, unspecified (principal); R31.9 Hematuria, unspecified; E11.9 Type 2 diabetes mellitus without complications; I11.0 Hypertensive heart disease with heart failure; I50.9 Heart failure, unspecified; J44.9 Chronic obstructive pulmonary disease, unspecified; F41.9 Anxiety disorder, unspecified; K21.9 Gastro-esophageal reflux disease without esophagitis; E66.01 Morbid (severe) obesity due to excess calories; E28.2 Polycystic ovarian syndrome; F17.210 Nicotine dependence, cigarettes, uncomplicated; Z68.44 Body mass index [BMI] 60.0-69.9, adult; Z88.0 Allergy status to penicillin
CPT/HCPCS: 81001; 87086; 99284

== ENCOUNTER 2017-04-22 14:26 | Emergency (ER) | payer OTHER ==
[~2017-04-22 14:26] MED LIST changes: +NAPR-514 PO; -NAPR500T4 PO; +TRAM50TA PO
[2017-04-22 15:08] LABS: BASO % 0 % (0-3); EOS # 0.3 x10^3/uL (0.0-0.7); EOS % 3 % (0-3); HEMATOCRIT 46.2 % (36.0-47.0); HEMOGLOBIN 15.2 g/dL (12.0-15.5); LYMPH # 3.1 x10^3/uL (1.0-4.8); LYMPH % 30 % (24-48); MEAN CORPUSCULAR HEMOGLOBIN 28 pg (25-35); MEAN CORPUSCULAR HGB CONC 33 g/dL (31-37); MEAN CORPUSCULAR VOLUME 84 fL (79-100); MONO # 0.5 x10^3/uL (0.0-1.1); MONO % 5 % (0-9); NEUT # 6.7 x10^3uL (1.8-7.7); NEUT % 63 % (31-73); PLATELET COUNT 239 x10^3/uL (140-400); RED BLOOD COUNT 5.48 x10^6/uL (3.50-5.40); RED CELL DISTRIBUTION WIDTH 15.7 % (11.5-14.5); WHITE BLOOD COUNT 10.7 x10^3/uL (4.0-11.0)
[2017-04-22 15:24] LABS: INFLUENZA A PATIENT NEGATIVE (NEGATIVE); INFLUENZA B PATIENT NEGATIVE (NEGATIVE)
[2017-04-22 15:27] LABS: ALBUMIN 3.3 g/dL (3.4-5.0); ALBUMIN/GLOBULIN RATIO 0.8 (1.0-1.7); CALCIUM 9.1 mg/dL (8.5-10.1); CREATININE 0.8 mg/dL (0.6-1.0); GFR 79.4; MAGNESIUM 1.7 mg/dL (1.8-2.4); POTASSIUM 4.6 mmol/L (3.5-5.1); TOTAL BILIRUBIN 0.5 mg/dL (0.2-1.0); TOTAL PROTEIN 7.7 g/dL (6.4-8.2)
--- NOTE | 2017-04-22 15:42 | PHYS DOC ---
Past History Past Medical History: Anxiety, CHF, COPD, Depression, Diabetes, GERD, Heart Disease, Hypertension, Ovarian Cyst, Other Past Surgical History: No Surgical History Smoking: Cigarettes Alcohol Use: None Drug Use: None Adult General Chief Complaint Chief Complaint: SHORTNESS OF BREATH [facility] HPI 41-year-old female patient with history of morbid obesity, CHF, COPD with remote history of smoking without home oxygen complaining of gradual onset of intermittent episodes of shortness of breath for the last 3 days and pain in the substernal area that getting force with cough as a sharp pain with radiation to her back and shoulder. Patient denies fever and chills, increasing cough, focal neuro deficit, sore throat and nasal congestion. Patient was seen by her pompom maker 3 days ago and instructed to come to ER if not getting better. She denies history of recent immobilization or previous PE and DVT. Patient rated her pain 8/10 and states she didn't take any pain medication. Review of Systems Review of Systems Constitutional: Denies fever or chills [] Eyes: Denies change in visual acuity, redness, or eye pain [] HENT: Denies nasal congestion or sore throat [] Respiratory: Reports shortness of breath [] Cardiovascular: No additional information not addressed in HPI [] GI: Denies abdominal pain, nausea, vomiting, bloody stools or diarrhea [] : Denies dysuria or hematuria [] Musculoskeletal: Denies back pain or joint pain [] Integument: Denies rash or skin lesions [] Neurologic: Denies headache, focal weakness or sensory changes [] Endocrine: Denies polyuria or polydipsia [] All other systems were reviewed and found to be within normal limits, except as documented in this note. Current Medications Current Medications Current Medications Medications (Trade) Dose Ordered Sig/[facility] Start Time Stop Time Status Last Admin Dose Admin Famotidine (Pepcid) 20 mg 1X ONCE 04/22/17 16:00 04/22/17 16:01 Allergies Allergies Allergies Coded Allergies Type Severity Reaction Last Updated Verified Penicillins Allergy Severe sob 10/26/14 No Physical Exam Physical Exam Constitutional: Well nourished, mild distress, non-toxic appearance, morbidly obese. [] HENT: Normocephalic, atraumatic, bilateral external ears normal, oropharynx moist, no oral exudates, nose normal. [] Eyes: PERRLA, EOMI, conjunctiva normal, no discharge. [] Neck: Normal range of motion, no tenderness, supple, no stridor. [] Cardiovascular:Heart rate regular rhythm, no murmur [] Lungs & Thorax: Decreased air movement bilaterally, mild wheezing] Abdomen: Bowel sounds normal, soft, no tenderness, no masses, no pulsatile masses. [] Skin: Warm, dry, no erythema, no rash. [] Back: No tenderness, no CVA tenderness. [] Extremities: No tenderness, no cyanosis, no clubbing, ROM intact, no edema. [] Neurologic: Alert and oriented X 3, normal motor function, normal sensory function, no focal deficits noted. [] Psychologic: Affect normal, judgement normal, mood normal. [] Current Patient Data Lab Results Laboratory Tests Test 04/22/17 14:50 White Blood Count 10.7 x10^3/uL (4.0-11.0) Red Blood Count 5.48 x10^6/uL (3.50-5.40) H Hemoglobin 15.2 g/dL (12.0-15.5) Hematocrit 46.2 % (36.0-47.0) Mean Corpuscular Volume 84 fL (79-100) Mean Corpuscular Hemoglobin 28 pg (25-35) Mean Corpuscular Hemoglobin Concent 33 g/dL (31-37) Red Cell Distribution Width 15.7 % (11.5-14.5) H Platelet Count 239 x10^3/uL (140-400) Neutrophils (%) (Auto) 63 % (31-73) Lymphocytes (%) (Auto) 30 % (24-48) Monocytes (%) (Auto) 5 % (0-9) Eosinophils (%) (Auto) 3 % (0-3) Basophils (%) (Auto) 0 % (0-3) Neutrophils # (Auto) 6.7 x10^3uL (1.8-7.7) Lymphocytes # (Auto) 3.1 x10^3/uL (1.0-4.8) Monocytes # (Auto) 0.5 x10^3/uL (0.0-1.1) Eosinophils # (Auto) 0.3 x10^3/uL (0.0-0.7) Basophils # (Auto) 0.0 x10^3/uL (0.0-0.2) Sodium Level 135 mmol/L (136-145) L Potassium Level 4.6 mmol/L (3.5-5.1) Chloride Level 96 mmol/L (98-107) L Carbon Dioxide Level 33 mmol/L (21-32) H Anion Gap 6 (6-14) Blood Urea Nitrogen 11 mg/dL (7-20) Creatinine 0.8 mg/dL (0.6-1.0) Estimated GFR (Cockcroft-Gault) 79.4 BUN/Creatinine Ratio 14 (6-20) Glucose Level 318 mg/dL (70-99) H Calcium Level 9.1 mg/dL (8.5-10.1) Magnesium Level 1.7 mg/dL (1.8-2.4) L Total Bilirubin 0.5 mg/dL (0.2-1.0) Aspartate Amino Transferase (AST) 15 U/L (15-37) Alanine Aminotransferase (ALT) 28 U/L (14-59) Alkaline Phosphatase 69 U/L (46-116) Creatine Kinase 32 U/L (26-192) Creatine Kinase MB (Mass) 0.7 ng/mL (0.0-3.6) Creatine Kinase MB Relative Index 2.2 % (0-4) Troponin I Quantitative < 0.017 ng/mL (0-0.055) TV-Dde-D-Type Natriuretic Peptide 60 pg/mL (0-124) Total Protein 7.7 g/dL (6.4-8.2) Albumin 3.3 g/dL (3.4-5.0) L Albumin/Globulin Ratio 0.8 (1.0-1.7) L Lipase 187 U/L (73-393) Influenza Type A (Rapid) Negative (NEGATIVE) Influenza Type B (Rapid) Negative (NEGATIVE) EKG EKG EKG interpreted by me. EKG at 1440 showed sinus tachycardia at rate of 101, right ventricular hypertrophy, poor R-wave progress in anterior leads.[] Radiology/Procedures Radiology/Procedures [address] [place] [id number] IMAGING REPORT Signed PATIENT: ALAYNA RODRIGUEZ ACCOUNT: [id number] : 1975 LOCATION: ER AGE: 41 SEX: F EXAM STATUS: REG ER ORD. PHYSICIAN: EDSON HILLS MD REASON: PE evaluation PROCEDURE: CT ANGIOGRAPHY CHEST Exam performed: CT pulmonary angiogram of the chest with contrast. Date: 04/22/2017. Comparison: None available Indication: Shortness of air with chest pain and elevated d-dimer Technique: Contiguous helical acquisitions are obtained through the chest during intravenous administration of [ 75 ] cc of [ Omnipaque 300 ] . [Sagittal and coronal reformatted images and ] MIP images were obtained and reviewed Findings: The study is very limited due to patient's large body habitus . The main pulmonary trunk is somewhat prominent. No filling defects seen in the pulmonary trunk or the right and left main pulmonary arteries. The aorta is normal in caliber without aneurysm. No neck, axillary, mediastinal or hilar adenopathy is seen. The central airways patent without endoluminal lesions. Heart size is normal. The lungs are essentially clear. No focal infiltrates, effusion or pneumothorax is seen. Limited evaluation of the upper abdominal structures is unremarkable. Probable hepatic steatosis Bones are normal. IMPRESSION: The study somewhat limited due to patient's large body habitus. No large filling defects in the main pulmonary trunk or the right or left main pulmonary arteries. If there is a strong clinical suspicion for pulmonary embolism, evaluation with nuclear medicine VQ scan may be of additional benefit. PQRS Compliance Statement: One or more of the following individualized dose reduction techniques were utilized for this examination: 1. Automated exposure control 2. Adjustment of the mA and/or kV according to patient size 3. Use of iterative reconstruction technique Electronically signed by: Agnieszka Huertas MD (04/22/2017 5:42 PM) [facility] DICTATED AND SIGNED BY: AGNIESZKA HUERTAS MD DATE: 04/22/17 [id number] CC: TONI FLORIAN DO; EDSON HILLS MD ~ Course & Med Decision Making Course & Med Decision Making Pertinent Labs and Imaging studies reviewed. (See chart for details) Evaluation of patient in ER showed 41-year-old female patient with history of COPD and CHF with increasing shortness of breath for several days. Patient had unremarkable labs except for elevation of d-dimer with negative CT for chest. Plan to discharge patient home with diagnosis of COPD exacerbation. Dragon Disclaimer Dragon Disclaimer This electronic medical record was generated, in whole or in part, using a voice recognition dictation system. Departure Departure: Impression: Primary Impression: COPD exacerbation Additional Impressions: Uncontrolled diabetes mellitus Morbid obesity Disposition: 01 HOME, SELF-CARE (at 1800) Condition: IMPROVED Referrals: TONI FLORIAN DO (PCP) Patient Instructions: Chronic Obstructive Pulmonary Disease Exacerbation Additional Instructions: Drink plenty of liquids Follow-up with your primary care physician in 3-5 days Return to ER if not getting better Scripts Benzonatate (TESSALON PERLE) 100 Mg Capsule 1 CAP PO TID, #21 CAP Prov: EDSON HILLS MD 04/22/17 Azithromycin (ZITHROMAX) 250 Mg Tablet 1 PKG PO UD, #1 PKG Prov: EDSON HILLS MD 04/22/17 Problem Qualifiers EDSON HILLS MD Apr 22, 2017 15:42
[2017-04-22] MEDS ORDERED: FAMOTIDINE 20 MG TABLET PO ONE (16:00)
[2017-04-22] MEDS ORDERED: IOHEXOL 300 MG/ML 75 ML VIAL. IV ONE (17:15)
--- NOTE | 2017-04-22 17:17 | RAD ---
PA AND LATERAL CHEST RADIOGRAPH Clinical Indication: SOB. Cough x2 days. Comparison: Two-view chest 12/19/2016. Findings: Stable cardiomegaly. Poor vascular congestion and increased interstitial markings. Appearance is similar to prior study. The lungs are clear. No pleural effusion or pneumothorax is seen. There is no acute bone abnormality. IMPRESSION: Cardiomegaly and mild CHF or volume overload, similar to prior study.
--- NOTE | 2017-04-22 17:46 | RAD ---
Exam performed: CT pulmonary angiogram of the chest with contrast. Date: 04/22/2017. Comparison: None available Indication: Shortness of air with chest pain and elevated d-dimer Technique: Contiguous helical acquisitions are obtained through the chest during intravenous administration of [ 75 ] cc of [ Omnipaque 300 ] . [Sagittal and coronal reformatted images and ] MIP images were obtained and reviewed Findings: The study is very limited due to patient's large body habitus . The main pulmonary trunk is somewhat prominent. No filling defects seen in the pulmonary trunk or the right and left main pulmonary arteries. The aorta is normal in caliber without aneurysm. No neck, axillary, mediastinal or hilar adenopathy is seen. The central airways patent without endoluminal lesions. Heart size is normal. The lungs are essentially clear. No focal infiltrates, effusion or pneumothorax is seen. Limited evaluation of the upper abdominal structures is unremarkable. Probable hepatic steatosis Bones are normal. IMPRESSION: The study somewhat limited due to patient's large body habitus. No large filling defects in the main pulmonary trunk or the right or left main pulmonary arteries. If there is a strong clinical suspicion for pulmonary embolism, evaluation with nuclear medicine VQ scan may be of additional benefit. PQRS Compliance Statement: One or more of the following individualized dose reduction techniques were utilized for this examination: 1. Automated exposure control 2. Adjustment of the mA and/or kV according to patient size 3. Use of iterative reconstruction technique Electronically signed by: Agnieszka Huertas MD (04/22/2017 5:42 PM) [facility]
[2017-04-22] MEDS ORDERED: BENZ100C PO (17:59)
[2017-04-22] MEDS ORDERED: AZIT250T PO (17:59)
[2017-04-22 18:30] VITALS: BP 167/117
--- NOTE | 2017-04-22 18:34 | EKG ---
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
== END 2017-04-22 18:40 | disposition home or self-care (01) ==
LOC: ER 14:26
DX: J44.1 Chronic obstructive pulmonary disease with (acute) exacerbation (principal); E11.9 Type 2 diabetes mellitus without complications; I11.0 Hypertensive heart disease with heart failure; I50.9 Heart failure, unspecified; E66.01 Morbid (severe) obesity due to excess calories; F41.9 Anxiety disorder, unspecified; F32.9 Major depressive disorder, single episode, unspecified; K21.9 Gastro-esophageal reflux disease without esophagitis; F17.210 Nicotine dependence, cigarettes, uncomplicated; Z88.0 Allergy status to penicillin
CPT/HCPCS: 36415; 71046; 71275; 80053; 82553; 83690; 83735; 83880; 84484; 85025; 85379; 85610; 87804; 93005; 99285; Q9967

== ENCOUNTER 2017-12-22 22:18 | Emergency (ER) | payer OTHER ==
[~2017-12-22] VITALS: Ht 167.6 cm; Wt 185.1 kg
[~2017-12-22 22:18] MED LIST changes: -AMLO5TAB2 PO; +AMLO5TAB7 PO; +AZIT250T PO; +BENZ100C PO; -FENO145T2 PO; +FENO145T30 PO; -SPIR25TA3 PO; +SPIR25TA5 PO
[2017-12-22 22:54] LABS: BASO # 0.1 x10^3/uL (0.0-0.2); BASO % 1 % (0-3); EOS # 0.4 x10^3/uL (0.0-0.7); EOS % 3 % (0-3); HEMATOCRIT 46.4 % (36.0-47.0); HEMOGLOBIN 15.3 g/dL (12.0-15.5); LYMPH # 3.8 x10^3/uL (1.0-4.8); LYMPH % 32 % (24-48); MEAN CORPUSCULAR HEMOGLOBIN 27 pg (25-35); MEAN CORPUSCULAR HGB CONC 33 g/dL (31-37); MEAN CORPUSCULAR VOLUME 83 fL (79-100); MONO # 0.6 x10^3/uL (0.0-1.1); MONO % 5 % (0-9); NEUT # 7.1 x10^3uL (1.8-7.7); NEUT % 59 % (31-73); PLATELET COUNT 289 x10^3/uL (140-400); RED BLOOD COUNT 5.62 x10^6/uL (3.50-5.40); RED CELL DISTRIBUTION WIDTH 15.7 % (11.5-14.5)
--- NOTE | 2017-12-22 22:56 | PHYS DOC ---
Past History Past Medical History: Anxiety, Asthma, CHF, Depression, Diabetes, High Cholesterol, Hypertension, Other Past Surgical History: Tonsillectomy, Tubal ligation Smoking: Cigarettes Alcohol Use: Occasionally Drug Use: None Adult General Chief Complaint Chief Complaint: CHEST PAIN HPI HPI 41-year-old female presents with chest pain. Patient states that she finished it about 8:30 PM. 15-30 minutes afterwards she was sitting on her bed and she began have a right-sided chest discomfort which she describes as an intermittent "squeezing and poking". It does not get worse with exertion. She states that it is ranged from a 4 to a 6 out of 10. It is currently a 5. She denies shortness of breath diaphoresis. She is not sure if the pain has been radiating, but now feels like she might have a "funny" feeling in her right jaw. The patient has a history of GERD for which she is supposed to take omeprazole. She does not religiously take her omeprazole or her blood pressure medicines. She denies nausea, vomiting, fever, chills, cough. Review of Systems Review of Systems Constitutional: Denies fever or chills [] Eyes: Denies change in visual acuity, redness, or eye pain [] HENT: Denies nasal congestion or sore throat [] Respiratory: Denies cough or shortness of breath [] Cardiovascular: No additional information not addressed in HPI [] GI: Denies abdominal pain, nausea, vomiting, bloody stools or diarrhea [] : Denies dysuria or hematuria [] Musculoskeletal: Denies back pain or joint pain [] Integument: Denies rash or skin lesions [] Neurologic: Denies headache, focal weakness or sensory changes [] Endocrine: Denies polyuria or polydipsia [] All other systems were reviewed and found to be within normal limits, except as documented in this note. Current Medications Current Medications Current Medications Medications (Trade) Dose Ordered Sig/[facility] Start Time Stop Time Status Last Admin Dose Admin Multi-Ingredient Mouthwash/Gargle (Gi Cocktail) 20 ml 1X ONCE 12/22/17 23:00 12/22/17 23:01 Allergies Allergies Allergies Coded Allergies Type Severity Reaction Last Updated Verified Penicillins Allergy Severe sob 10/26/14 No Physical Exam Physical Exam Constitutional: Well developed, morbidly obese, well nourished, no acute distress, non-toxic appearance. [] HENT: Normocephalic, atraumatic, bilateral external ears normal, oropharynx moist, no oral exudates, nose normal. [] Eyes: PERRLA, EOMI, conjunctiva normal, no discharge. [] Neck: Normal range of motion, no tenderness, supple, no stridor. [] Cardiovascular:Heart rate regular rhythm, no murmur [] Lungs & Thorax: Bilateral breath sounds clear to auscultation [] Abdomen: Bowel sounds normal, soft, no tenderness, no masses, no pulsatile masses. [] Skin: Warm, dry, no erythema, no rash. Many skin tags around her neck. [] Back: No tenderness, no CVA tenderness. [] Extremities: No tenderness, no cyanosis, no clubbing, ROM intact, no edema. [] Neurologic: Alert and oriented X 3, normal motor function, normal sensory function, no focal deficits noted. [] Psychologic: Affect normal, judgement normal, mood normal. [] Current Patient Data Vital Signs Vital Signs Date Time Temp Pulse Resp B/P (MAP) Pulse Ox O2 Delivery O2 Flow Rate FiO2 12/22/17 22:25 98.9 114 14 92 Room Air EKG EKG Sinus tachycardia, rate 109, left axis, no ST elevations or depressions.[] Radiology/Procedures Radiology/Procedures [] Impressions: Preliminary interpretation: Cardiomegaly, pulmonary congestion, with CHF. This appears similar to previous from April 2017 Course & Med Decision Making Course & Med Decision Making Pertinent Labs and Imaging studies reviewed. (See chart for details) The patient's labs are significant for an elevated blood sugar over 300. Her anion gap is normal. Her white count is slightly elevated at 12. Her troponin is negative. Her chest x-ray is similar to previous with cardiomegaly and CHF. The patient's blood pressure significantly elevated at 200 over 110s. She tells she did not take her blood pressure medicines today. I will give her clonidine and metoprolol IV. The patient's blood pressure improved slightly to 188/114. She tells me her last doctor's visit was 183/120. She has not taken her blood pressure medicines for 2 days. She tells me that she is on several blood pressure medications, but doesn't always take them. She is trying to be more consistent with them. I offered to admit the patient for further observation and to work on her blood pressure. The patient she normally would prefer to go home. I explained to her that I cannot completely rule out cardiac cause for her pain. She stated understanding of this risk. She will return if the pain returns. At this time she is pain-free. She tells me that her pain significantly improved after the GI cocktail and then completely went away after the blood pressure medication. [] Dragon Disclaimer Dragon Disclaimer This electronic medical record was generated, in whole or in part, using a voice recognition dictation system. Departure Departure: Referrals: ALEX POE (PCP) LEATHA OAKES DO Dec 22, 2017 22:56
[2017-12-22] MEDS ORDERED: LIDO:MAALOX 1:1 20 ML SINGLE DOSE. PO ONE (23:00)
[2017-12-22 23:03] LABS: ALBUMIN 3.3 g/dL (3.4-5.0); ALBUMIN/GLOBULIN RATIO 0.8 (1.0-1.7); CALCIUM 8.9 mg/dL (8.5-10.1); CREATININE 0.9 mg/dL (0.6-1.0); GFR 69.3; POTASSIUM 4.7 mmol/L (3.5-5.1); TOTAL BILIRUBIN 0.5 mg/dL (0.2-1.0); TOTAL PROTEIN 7.5 g/dL (6.4-8.2)
[2017-12-23] MEDS ORDERED: cloNIDine HCL 0.1 MG TABLET PO ONE
[2017-12-23] MEDS ORDERED: METOPROLOL TARTRATE 5 MG/5 ML VIAL. IV ONE
[2017-12-23 00:17] VITALS: BP 188/114
--- NOTE | 2017-12-23 00:47 | RAD ---
EXAM: AP View of the chest DATE: 12/22/2017 10:47 PM INDICATION: Chest pain COMPARISON: CT PE to 1118, chest radiograph 04/22/2017, 12/19/2016 FINDINGS: Stable moderate cardiomegaly. Mediastinal and hilar contours are normal. No pleural effusion or pneumothorax. Mild patchy opacities in the bilateral lung bases, accentuated by overlying soft tissues, may represent atelectasis. Eventration of the right hemidiaphragm is again seen. IMPRESSION: Stable cardiomegaly. Minimal opacities in the lung bases likely atelectasis. No pleural effusion or pneumothorax. Electronically signed by: Alton Griffin MD (12/23/2017 12:44 AM) [id number]
--- NOTE | 2017-12-23 07:28 | EKG ---
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
== END 2017-12-23 00:30 | disposition home or self-care (01) ==
LOC: ER 22:18
DX: I11.0 Hypertensive heart disease with heart failure (principal); D72.829 Elevated white blood cell count, unspecified; F41.9 Anxiety disorder, unspecified; J45.909 Unspecified asthma, uncomplicated; I50.9 Heart failure, unspecified; F32.9 Major depressive disorder, single episode, unspecified; E11.9 Type 2 diabetes mellitus without complications; E78.00 Pure hypercholesterolemia, unspecified; F17.210 Nicotine dependence, cigarettes, uncomplicated; Z88.0 Allergy status to penicillin
CPT/HCPCS: 36415; 71045; 80053; 84484; 85025; 93005; 96374; 99285; J3490

== ENCOUNTER 2018-05-16 13:09 | Emergency (ER) | payer OTHER ==
[~2018-05-16] VITALS: Ht 167.6 cm; Wt 188.7 kg
[~2018-05-16 13:09] MED LIST changes: +AMLO5TAB10 PO; -AMLO5TAB7 PO; -CARV12.52 PO; +CARV12.547 PO; +HYDR-2155 PO; -HYDR-2758 PO; +HYDR-3165 PO; -HYDR-971 PO
[2018-05-16] MEDS ORDERED: IV NORMAL SALINE 1,000ML 1,000 ML IV SCH (13:33)
[2018-05-16] MEDS ORDERED: IOHEXOL 240 MG/ML 50ML VIAL. ONE (13:43)
[2018-05-16] MEDS ORDERED: IOHEXOL 300 MG/ML 75 ML VIAL. IV ONE (14:00)
[2018-05-16] MEDS ORDERED: METOCLOPRAMIDE HCL 10 MG/2 ML VIAL. IV ONE (14:00)
[2018-05-16] MEDS ORDERED: MORPHINE SULFATE 4 MG/ML DISP.SYRIN. IV ONE (14:00)
[2018-05-16 14:16] LABS: BASO % 0 % (0-3); EOS # 0.3 x10^3/uL (0.0-0.7); EOS % 3 % (0-3); HEMATOCRIT 44.3 % (36.0-47.0); HEMOGLOBIN 14.4 g/dL (12.0-15.5); LYMPH # 3.1 x10^3/uL (1.0-4.8); LYMPH % 25 % (24-48); MEAN CORPUSCULAR HEMOGLOBIN 28 pg (25-35); MEAN CORPUSCULAR HGB CONC 32 g/dL (31-37); MEAN CORPUSCULAR VOLUME 85 fL (79-100); MONO # 0.9 x10^3/uL (0.0-1.1); MONO % 7 % (0-9); NEUT # 8.1 x10^3uL (1.8-7.7); NEUT % 65 % (31-73); PLATELET COUNT 277 x10^3/uL (140-400); RED BLOOD COUNT 5.19 x10^6/uL (3.50-5.40); RED CELL DISTRIBUTION WIDTH 15.4 % (11.5-14.5); WHITE BLOOD COUNT 12.5 x10^3/uL (4.0-11.0)
[2018-05-16 14:32] LABS: ALBUMIN 3.1 g/dL (3.4-5.0); ALBUMIN/GLOBULIN RATIO 0.6 (1.0-1.7); CREATININE 0.9 mg/dL (0.6-1.0); POTASSIUM 4.2 mmol/L (3.5-5.1); TOTAL BILIRUBIN 0.7 mg/dL (0.2-1.0)
[2018-05-16 14:49] LABS: BILIRUBIN,URINE NEG (NEG); CLARITY,URINE HAZY; COLOR,URINE AMBER; GLUCOSE,URINE 250 mg/dL (NEG)
[2018-05-16 14:50] LABS: BACTERIA,URINE FEW /HPF (0-FEW); NITRITE,URINE NEG (NEG); RBC,URINE 0 /HPF (0-2); SQUAMOUS EPITHELIAL CELL,UR MOD /LPF; UROBILINOGEN,URINE 1 mg/dL (0.2 mg/dL); WBC,URINE OCC /HPF (0-4); YEAST,URINE PRESENT /HPF
--- NOTE | 2018-05-16 15:05 | RAD ---
PQRS Compliance statement: One or more of the following individualized dose reduction techniques were utilized for this examination: 1. Automated exposure control. 2. Adjustment of the mA and/or kV according to patient size. 3. Use of iterative reconstruction technique. Indication:ABD PAIN AT HERNIA PT WEIGHTS 420 POUNDS BEST IMAGES POSSIBLE WERE OBTAINED TECHNIQUE: CT abdomen and pelvis with IV contrast with multiplanar reformats. COMPARISON: 11/25/2016 FINDINGS: Heart is normal in size. No pericardial or pleural effusion. Clear lung bases. Diffuse hepatic steatosis. No focal hepatic lesion. Spleen, gallbladder, pancreas and left adrenal within normal limits. 3.8 x 3.1 cm myelolipoma in the right adrenal gland. No nephrolithiasis or hydronephrosis. No enlarged retroperitoneal adenopathy. Few mildly prominent pelvic lymph nodes are seen, the largest along the right external iliac chain measuring 2.0 x 1.3 cm the largest right inguinal lymph node measures 2.9 x 1.7 cm. Short segment circumferential wall thickening is seen of the rectosigmoid colon. No bowel obstruction. Midline umbilical hernia containing omental fat with neck of the hernia measuring 2.6 cm and hernia sac measuring 7.4 x 7.8 cm also seen on previous exam. No herniation of the bowel loops. Uterus is anteverted. Urinary bladder is decompressed however shows no radiopaque stone. Redemonstrated is a fat-containing mass originating from the right ovary measuring 12.8 x 9.7 cm, previously 12.7 x 10.0 cm. No suspicious bony lesion. IMPRESSION: 1. Stable anterior omental fat-containing medical hernia. No herniation of the bowel loop. 2. Stable right ovarian dermoid/teratoma. 3. Minimally enlarged inguinal and pelvic lymph nodes most likely reactive. 4. Short segment circumferential thickening of the rectosigmoid colon may secondary to collapsed state. Correlate with colonoscopy. Electronically signed by: Ernie Eric DO (05/16/2018 3:02 PM) [id number]
[2018-05-16] MEDS ORDERED: HYOS0.1264 PO (15:20)
[2018-05-16] MEDS ORDERED: METO10TA81 PO (15:20)
--- NOTE | 2018-05-16 15:20 | PHYS DOC ---
Past History Past Medical History: Anxiety, Asthma, CHF, Depression, Diabetes, High Cholesterol, Hypertension, Other Past Surgical History: Tonsillectomy, Tubal ligation Smoking: Cigarettes Alcohol Use: Occasionally Drug Use: None Adult General Chief Complaint Chief Complaint: ABDOMINAL PAIN HPI HPI Patient is a 42-year-old female who presents with umbilical hernia pain. Patient has a known umbilical hernia that due to her BMI, she reports that she is not a candidate for surgical repair. Over the past 3 days it his he, worse. She has some nausea, no vomiting, no diarrhea. Nothing seems to make the discomfort better or worse. Patient has taken no medications to help with the discomfort.[] Review of Systems Review of Systems Constitutional: Denies fever or chills [] Eyes: Denies change in visual acuity, redness, or eye pain [] HENT: Denies nasal congestion or sore throat [] Respiratory: Denies cough or shortness of breath [] Cardiovascular: No chest pain or palpitations[] GI: See history of present illness[] : Denies dysuria or hematuria [] Musculoskeletal: Denies back pain or joint pain [] Integument: Denies rash or skin lesions [] Neurologic: Denies headache, focal weakness or sensory changes [] Endocrine: Denies polyuria or polydipsia [] All other systems were reviewed and found to be within normal limits, except as documented in this note. Current Medications Current Medications Current Medications Medications (Trade) Dose Ordered Sig/Cami Start Time Stop Time Status Last Admin Dose Admin Iohexol (Omnipaque 240 Mg/ml) 50 ml STK-MED ONCE 05/16/18 13:43 05/16/18 13:44 DC Iohexol (Omnipaque 300 Mg/ml) 75 ml 1X ONCE 05/16/18 14:00 05/16/18 14:01 DC 05/16/18 14:45 75 ML Metoclopramide HCl (Reglan Vial) 10 mg 1X ONCE 05/16/18 14:00 05/16/18 14:01 DC 05/16/18 13:58 10 MG Morphine Sulfate (Morphine 4mg Syringe) 4 mg 1X ONCE 05/16/18 14:00 05/16/18 14:01 DC 05/16/18 13:58 4 MG Sodium Chloride 1,000 ml @ 100 mls/hr Q10H 05/16/18 13:33 05/16/18 23:32 05/16/18 13:57 100 MLS/HR Allergies Allergies Allergies Coded Allergies Type Severity Reaction Last Updated Verified Penicillins Allergy Severe sob 05/16/18 No Physical Exam Physical Exam Constitutional: Well developed, well nourished, no acute distress, non-toxic appearance. [] HENT: Normocephalic, atraumatic, bilateral external ears normal, oropharynx moist, no oral exudates, nose normal. [] Eyes: PERRLA, EOMI, conjunctiva normal, no discharge. [] Neck: Normal range of motion, no tenderness, supple, no stridor. [] Cardiovascular:Heart rate regular rhythm, no murmur [] Lungs & Thorax: Bilateral breath sounds clear to auscultation [] Abdomen: Bowel sounds normal, soft, no tenderness, no masses, no pulsatile masses. [] Skin: Warm, dry, no erythema, no rash. [] Back: No tenderness, no CVA tenderness. [] Extremities: No tenderness, no cyanosis, no clubbing, ROM intact, no edema. [] Neurologic: Alert and oriented X 3, normal motor function, normal sensory function, no focal deficits noted. [] Psychologic: Affect normal, judgement normal, mood normal. [] Current Patient Data Vital Signs Vital Signs Date Time Temp Pulse Resp B/P (MAP) Pulse Ox O2 Delivery O2 Flow Rate FiO2 05/16/18 13:58 18 Room Air 05/16/18 13:24 97.8 99 96 Lab Results Laboratory Tests Test 05/16/18 13:52 05/16/18 14:02 White Blood Count 12.5 x10^3/uL (4.0-11.0) H Red Blood Count 5.19 x10^6/uL (3.50-5.40) Hemoglobin 14.4 g/dL (12.0-15.5) Hematocrit 44.3 % (36.0-47.0) Mean Corpuscular Volume 85 fL (79-100) Mean Corpuscular Hemoglobin 28 pg (25-35) Mean Corpuscular Hemoglobin Concent 32 g/dL (31-37) Red Cell Distribution Width 15.4 % (11.5-14.5) H Platelet Count 277 x10^3/uL (140-400) Neutrophils (%) (Auto) 65 % (31-73) Lymphocytes (%) (Auto) 25 % (24-48) Monocytes (%) (Auto) 7 % (0-9) Eosinophils (%) (Auto) 3 % (0-3) Basophils (%) (Auto) 0 % (0-3) Neutrophils # (Auto) 8.1 x10^3uL (1.8-7.7) H Lymphocytes # (Auto) 3.1 x10^3/uL (1.0-4.8) Monocytes # (Auto) 0.9 x10^3/uL (0.0-1.1) Eosinophils # (Auto) 0.3 x10^3/uL (0.0-0.7) Basophils # (Auto) 0.0 x10^3/uL (0.0-0.2) Urine Collection Type Void Urine Color Estrella Urine Clarity Hazy Urine pH 5.0 Urine Specific [place] 1.025 Urine Protein 30 mg/dl (NEG-TRACE) Urine Glucose (UA) 250 mg/dL (NEG) Urine Ketones (Stick) Trace mg/dL (NEG) Urine Blood Neg (NEG) Urine Nitrite Neg (NEG) Urine Bilirubin Neg (NEG) Urine Urobilinogen Dipstick 1 mg/dL (0.2 mg/dL) Urine Leukocyte Esterase Neg (NEG) Urine RBC 0 /HPF (0-2) Urine WBC Occ /HPF (0-4) Urine Squamous Epithelial Cells Mod /LPF Urine Bacteria Few /HPF (0-FEW) Urine Mucus Slight /LPF Urine Yeast Present /HPF Sodium Level 139 mmol/L (136-145) Potassium Level 4.2 mmol/L (3.5-5.1) Chloride Level 100 mmol/L (98-107) Carbon Dioxide Level 34 mmol/L (21-32) H Anion Gap 5 (6-14) L Blood Urea Nitrogen 11 mg/dL (7-20) Creatinine 0.9 mg/dL (0.6-1.0) Estimated GFR (Cockcroft-Gault) 69.0 BUN/Creatinine Ratio 12 (6-20) Glucose Level 216 mg/dL (70-99) H Calcium Level 9.0 mg/dL (8.5-10.1) Total Bilirubin 0.7 mg/dL (0.2-1.0) Aspartate Amino Transferase (AST) 18 U/L (15-37) Alanine Aminotransferase (ALT) 23 U/L (14-59) Alkaline Phosphatase 63 U/L (46-116) Total Protein 8.0 g/dL (6.4-8.2) Albumin 3.1 g/dL (3.4-5.0) L Albumin/Globulin Ratio 0.6 (1.0-1.7) L Lipase 146 U/L (73-393) POC Urine HCG, Qualitative hcg negative (Negative) EKG EKG [] Radiology/Procedures Radiology/Procedures TECHNIQUE: CT abdomen and pelvis with IV contrast with multiplanar reformats. COMPARISON: 11/25/2016 FINDINGS: Heart is normal in size. No pericardial or pleural effusion. Clear lung bases. Diffuse hepatic steatosis. No focal hepatic lesion. Spleen, gallbladder, pancreas and left adrenal within normal limits. 3.8 x 3.1 cm myelolipoma in the right adrenal gland. No nephrolithiasis or hydronephrosis. No enlarged retroperitoneal adenopathy. Few mildly prominent pelvic lymph nodes are seen, the largest along the right external iliac chain measuring 2.0 x 1.3 cm the largest right inguinal lymph node measures 2.9 x 1.7 cm. Short segment circumferential wall thickening is seen of the rectosigmoid colon. No bowel obstruction. Midline umbilical hernia containing omental fat with neck of the hernia measuring 2.6 cm and hernia sac measuring 7.4 x 7.8 cm also seen on previous exam. No herniation of the bowel loops. Uterus is anteverted. Urinary bladder is decompressed however shows no radiopaque stone. Redemonstrated is a fat-containing mass originating from the right ovary measuring 12.8 x 9.7 cm, previously 12.7 x 10.0 cm. No suspicious bony lesion. IMPRESSION: 1. Stable anterior omental fat-containing medical hernia. No herniation of the bowel loop. 2. Stable right ovarian dermoid/teratoma. 3. Minimally enlarged inguinal and pelvic lymph nodes most likely reactive. 4. Short segment circumferential thickening of the rectosigmoid colon may secondary to collapsed state. Correlate with colonoscopy.[] Course & Med Decision Making Course & Med Decision Making Pertinent Labs and Imaging studies reviewed. (See chart for details) ED course: Patient arrived, was placed in bed, in tolerated exam well. Patient was able to tolerate oral contrast and was transported to and from [place] with any consultations. After the return of the lab and imaging findings, these were discussed with the patient who voiced understanding. All questions were answered. She was discharged in improved condition. Medical decision making: There does not appear to be an obstruction, incarcerated hernia of bowel contents. This appears to be omental fat. No evidence of appendicitis nor significant change from her known other pathology intra-abdominally.[] Dragon Disclaimer Dragon Disclaimer This electronic medical record was generated, in whole or in part, using a voice recognition dictation system. Departure Departure: Impression: Primary Impression: Umbilical hernia Disposition: HOME, SELF-CARE Condition: IMPROVED Referrals: ALAYNA NEWMAN (PCP) Follow-up in 2 days Patient Instructions: Hernia Additional Instructions: Your hernia today appears unchanged. It contains omental fat that surrounds the intestines, not the intestines themselves. Follow-up with your regular doctor in 2 days. Return to the ER if you are unable to tolerate liquids or any other concerns. Scripts Metoclopramide Hcl (REGLAN) 10 Mg Tablet 10 MG PO QID for nausea and vomiting, #30 TAB Prov: RAISSA HECK DO 05/16/18 Hyoscyamine Sulfate (LEVSIN) 0.125 Mg Tablet 0.125 MG PO QID for abdominal pain/cramping, #30 TAB Prov: RAISSA HECK DO 05/16/18 Problem Qualifiers Primary Impression: Umbilical hernia Obstruction and gangrene presence: without obstruction or gangrene Qualified Codes: K42.9 - Umbilical hernia without obstruction or gangrene RAISSA HECK DO May 16, 2018 15:20
[2018-05-16 15:32] VITALS: BP 136/74
== END 2018-05-16 15:33 | disposition home or self-care (01) ==
LOC: ER 13:09
DX: K42.9 Umbilical hernia without obstruction or gangrene (principal); F41.9 Anxiety disorder, unspecified; J45.909 Unspecified asthma, uncomplicated; I11.0 Hypertensive heart disease with heart failure; I50.9 Heart failure, unspecified; F32.9 Major depressive disorder, single episode, unspecified; E11.9 Type 2 diabetes mellitus without complications; E78.00 Pure hypercholesterolemia, unspecified; F17.210 Nicotine dependence, cigarettes, uncomplicated; Z88.0 Allergy status to penicillin
CPT/HCPCS: 36415; 74177; 80053; 81001; 81025; 83690; 85025; 96374; 96375; 99284; J2270; J2765; Q9967; J7030

== ENCOUNTER 2018-08-19 14:26 | Emergency (ER) | payer OTHER ==
[~2018-08-19] VITALS: Ht 167.6 cm; Wt 187.2 kg
[~2018-08-19 14:26] MED LIST changes: +HYOS0.1264 PO; +METO10TA81 PO
[2018-08-19] MEDS ORDERED: KETOROLAC 30 MG/ML VIAL. IM ONE (15:15)
--- NOTE | 2018-08-19 15:16 | PHYS DOC ---
Past History Past Medical History: CHF, Diabetes, GERD, High Cholesterol, Hypertension, Ovarian Cyst Past Surgical History: No Surgical History Smoking: Cigarettes Alcohol Use: None Drug Use: None Adult General Chief Complaint Chief Complaint: ABDOMINAL PAIN HPI HPI Patient is a 42-year-old female presents with back pain and pelvic pain that started earlier today. Onset was while she was bending forward trying to reach for a bottle sitting on the floor, while she was sitting on the side of her bed, increased pain with coming back up right. No loss of bowel or bladder control. No dysuria. Patient has similar pain approximately 10 days ago for which she was seen at [facility] and had an extensive workup to include a CT scan of her abdomen that did not show any acute abnormality. She does have a 13 cm right adnexal dermoid cyst/teratoma that appeared unchanged from previous. Patient is uncertain as to where she has in her menstrual cycle due to having irregular menses.[] Review of Systems Review of Systems Constitutional: Denies fever or chills [] Eyes: Denies change in visual acuity, redness, or eye pain [] HENT: Denies nasal congestion or sore throat [] Respiratory: Denies cough or shortness of breath [] Cardiovascular: No additional information not addressed in HPI [] GI: Denies abdominal pain, nausea, vomiting, bloody stools or diarrhea [] : Denies dysuria or hematuria [] Musculoskeletal: See history of present illness[] Integument: Denies rash or skin lesions [] Neurologic: Denies headache, focal weakness or sensory changes [] Endocrine: Denies polyuria or polydipsia [] All other systems were reviewed and found to be within normal limits, except as documented in this note. Allergies Allergies Allergies Coded Allergies Type Severity Reaction Last Updated Verified Penicillins Allergy Severe sob 05/16/18 No Physical Exam Physical Exam Constitutional: Well developed, well nourished, no acute distress, non-toxic appearance. [] HENT: Normocephalic, atraumatic, bilateral external ears normal, oropharynx moist, no oral exudates, nose normal. [] Eyes: PERRLA, EOMI, conjunctiva normal, no discharge. [] Neck: Normal range of motion, no tenderness, supple, no stridor. [] Cardiovascular:Heart rate regular rhythm, no murmur [] Lungs & Thorax: Bilateral breath sounds clear to auscultation [] Abdomen: Bowel sounds normal, soft, no tenderness, no masses, no pulsatile masses. [] Skin: Warm, dry, no erythema, no rash. [] Back: No tenderness, no CVA tenderness. [] Extremities: No tenderness, no cyanosis, no clubbing, ROM intact, no edema. [] Neurologic: Alert and oriented X 3, normal motor function, normal sensory function, no focal deficits noted. [] Psychologic: Affect normal, judgement normal, mood normal. [] Current Patient Data Vital Signs Vital Signs Date Time Temp Pulse Resp B/P (MAP) Pulse Ox O2 Delivery O2 Flow Rate FiO2 08/19/18 14:44 100 21 97 Room Air EKG EKG [] Radiology/Procedures Radiology/Procedures [] Course & Med Decision Making Course & Med Decision Making Pertinent Labs and Imaging studies reviewed. (See chart for details) ED course: Patient arrived, was placed in bed, and tolerated exam well. After the return of laboratory testing, these were discussed with the patient who voiced understanding. All questions were answered. She was discharged in improved condition. Medical decision making: Believe the back discomfort to be due to more of a sprain strain mechanism given the lack of midline tenderness, no loss of bowel or bladder control, denies of IV drug abuse, and no fever. There is no indication under the choosing wisely campaign for imaging at this time. Patient has a significant history of multiple imaging of her abdomen to include a CT scan 10 days ago that did not show any acute features. Believe that additional imaging increases her risk of cancer. There is no evidence of urinary tract infection, ectopic , pyelonephritis, nor other significant intra- abdominal pathology, bony pathology, nor cauda equina syndrome. No evidence of ovarian torsion. Patient is nontoxic and in no significant distress.[] Dragon Disclaimer Dragon Disclaimer This electronic medical record was generated, in whole or in part, using a voice recognition dictation system. Departure Departure: Impression: Primary Impression: Back pain Additional Impression: Abdominal pain Disposition: HOME, SELF-CARE Condition: IMPROVED Referrals: ALAYNA NEWMAN (PCP) Follow-up in 2 days Patient Instructions: Back Pain, Adult, Pelvic Pain, Female Additional Instructions: Follow-up with your regular doctor in 2 days. Take the medication as prescribed. Continue your regular medication. Return to the ER if worsening discomfort, loss of bowel or bladder control, or any other concerns. Scripts Orphenadrine Citrate (ORPHENADRINE CITRATE) 100 Mg Tablet.er 100 MG PO BID for BACK PAIN, #20 TAB.SR Prov: RAISSA HECK DO 08/19/18 Meloxicam (MELOXICAM) 7.5 Mg Tablet 7.5 MG PO DAILY for PAIN, #20 TAB Prov: RAISSA HECK DO 08/19/18 Hyoscyamine Sulfate (LEVSIN) 0.125 Mg Tablet 0.125 MG PO QID for abdominal pain/cramping, #30 TAB Prov: RAISSA HECK DO 08/19/18 Problem Qualifiers Primary Impression: Back pain Back pain location: low back pain Chronicity: acute Back pain laterality: bilateral Sciatica presence: without sciatica Qualified Codes: M54.5 - Low back pain Additional Impression: Abdominal pain Abdominal location: unspecified location Qualified Codes: R10.9 - Unspecified abdominal pain RAISSA HECK DO Aug 19, 2018 15:16
[2018-08-19 15:51] LABS: BACTERIA,URINE FEW /HPF (0-FEW); BILIRUBIN,URINE NEG (NEG); CLARITY,URINE CLOUDY; COLOR,URINE AMBER; GLUCOSE,URINE 500 mg/dL (NEG); HYALINE CASTS, URINE FEW /HPF; NITRITE,URINE NEG (NEG); RBC,URINE 0 /HPF (0-2); SQUAMOUS EPITHELIAL CELL,UR OCC /LPF; UROBILINOGEN,URINE 1 mg/dL (0.2 mg/dL); WBC,URINE 0 /HPF (0-4)
[2018-08-19] MEDS ORDERED: ORPH-16 PO (16:12)
[2018-08-19] MEDS ORDERED: MELO7.5T29 PO (16:12)
[2018-08-19] MEDS ORDERED: HYOS0.1264 PO (16:12)
[2018-08-19 16:26] VITALS: BP 140/90
== END 2018-08-19 16:27 | disposition home or self-care (01) ==
LOC: ER 14:26
DX: R10.2 Pelvic and perineal pain (principal); M54.5 Low back pain; I11.0 Hypertensive heart disease with heart failure; I50.9 Heart failure, unspecified; E11.9 Type 2 diabetes mellitus without complications; K21.9 Gastro-esophageal reflux disease without esophagitis; E78.00 Pure hypercholesterolemia, unspecified; F17.210 Nicotine dependence, cigarettes, uncomplicated; Z88.0 Allergy status to penicillin
CPT/HCPCS: 36415; 81001; 81025; 87491; 87591; 96372; 99284; J1885

== ENCOUNTER 2018-09-11 17:09 | Emergency (ER) | payer OTHER ==
[~2018-09-11] VITALS: Ht 167.6 cm; Wt 184.7 kg
[~2018-09-11 17:09] MED LIST changes: +MELO7.5T29 PO; +ORPH-16 PO
--- NOTE | 2018-09-11 17:55 | PHYS DOC ---
Past History Past Medical History: CHF, Diabetes, High Cholesterol, Hypertension, Ovarian Cyst, Other (LEATHA OAKES DO) Past Surgical History: No Surgical History (LEATHA OAKES DO) Smoking: Cigarettes Alcohol Use: None Drug Use: None (LEATHA OAKES DO) Adult General Chief Complaint Chief Complaint: COUGH HPI HPI 42-year-old female presents with 5 day shift cough and congestion. She has had some mild shortness of breath. The patient's symptoms started with what she felt were allergies. She became concerned 2 days ago and her sputum change color and became more thick. She has also had a fever up to 102.4. She denies chest pain or diaphoresis. She denies dysuria or urinary frequency. (LEATHA OAKES DO) Review of Systems Review of Systems Constitutional: Denies fever or chills [] Eyes: Denies change in visual acuity, redness, or eye pain [] HENT: Denies nasal congestion or sore throat [] Respiratory: Productive cough with mild shortness of breath [] Cardiovascular: No additional information not addressed in HPI [] GI: Denies abdominal pain, nausea, vomiting, bloody stools or diarrhea [] : Denies dysuria or hematuria [] Musculoskeletal: Denies back pain or joint pain [] Integument: Denies rash or skin lesions [] Neurologic: Denies headache, focal weakness or sensory changes [] Endocrine: Denies polyuria or polydipsia [] All other systems were reviewed and found to be within normal limits, except as documented in this note. (LEATHA OAKES DO) Allergies Allergies Allergies Coded Allergies Type Severity Reaction Last Updated Verified Penicillins Allergy Severe sob 05/16/18 No (LEATHA OAKES DO) Physical Exam Physical Exam Constitutional: Well developed, morbid obesity, well nourished, no acute distress, non-toxic appearance. [] HENT: Normocephalic, atraumatic, bilateral external ears normal, oropharynx moist, no oral exudates, nose normal. [] Eyes: PERRLA, EOMI, conjunctiva normal, no discharge. [] Neck: Normal range of motion, no tenderness, supple, no stridor. [] Cardiovascular:Heart rate regular rhythm, no murmur [] Lungs & Thorax: Bilateral breath sounds diminished but clear to auscultation [] Abdomen: Bowel sounds normal, soft, no tenderness, no masses, no pulsatile masses. [] Skin: Warm, dry, no erythema, no rash. [] Back: No tenderness, no CVA tenderness. [] Extremities: No tenderness, no cyanosis, no clubbing, ROM intact, no edema. [] Neurologic: Alert and oriented X 3, normal motor function, normal sensory function, no focal deficits noted. [] Psychologic: Affect normal, judgement normal, mood normal. [] (LEATHA OAKES DO) Current Patient Data Vital Signs Vital Signs Date Time Temp Pulse Resp B/P (MAP) Pulse Ox O2 Delivery O2 Flow Rate FiO2 09/11/18 17:27 98.2 107 28 96 Room Air (LEATHA OAKES DO) EKG EKG [] (LEATHA OAKES DO) Radiology/Procedures Radiology/Procedures [] (LEATHA OAKES DO) Radiology/Procedures My interpretation of CXR show some atelectasis, patchy areas, no large loculation on consolidation. Similar to prior films on file Impressions: (SERVANDO NINA MD) Course & Med Decision Making Course & Med Decision Making Pertinent Labs and Imaging studies reviewed. (See chart for details) Patient's workup is pending. I'm signing the patient out to Dr. Nina at 1800. [] (LEATHA OAKES DO) Course & Med Decision Making Impression: 1. Bronchitis- Possible Pneumonia 2. Morbid Obesity 3. DM Pt. reports marked improvement of symptoms after MDI treatment. Has been taking only 1 doxycycline 100 a day. Will increased to bid. Use MDI two puffs four times a day. Will attempt to control her Glucose levels better my med compliance and diet. Must follow up with primary. Return if any concerns. (SERVANDO NINA MD) Dragon Disclaimer Dragon Disclaimer This electronic medical record was generated, in whole or in part, using a voice recognition dictation system. (LEATHA OAKES DO) Departure Departure: Referrals: PCP,NO (PCP) Scripts Doxycycline Hyclate (DOXYCYCLINE HYCLATE) 100 Mg Tablet. 100 MG PO BID for pneumonia for 10 Days, #20 TAB Prov: SERVANDO NINA MD 09/11/18 Discharge Summary Visit Information Final Diagnosis Problems Medical Problems: (1) Atypical pneumonia Status: Acute (SERVANDO NINA MD) Brief Hospital Course Allergies Allergies Coded Allergies Type Severity Reaction Last Updated Verified Penicillins Allergy Severe sob 05/16/18 No Vital Signs Vital Signs Date Time Temp Pulse Resp B/P (MAP) Pulse Ox O2 Delivery O2 Flow Rate FiO2 09/11/18 20:55 90 18 123/85 (98) 93 Room Air 09/11/18 17:27 98.2 Lab Results Laboratory Tests Test 09/11/18 17:55 White Blood Count 10.3 x10^3/uL (4.0-11.0) Red Blood Count 4.91 x10^6/uL (3.50-5.40) Hemoglobin 14.0 g/dL (12.0-15.5) Hematocrit 42.2 % (36.0-47.0) Mean Corpuscular Volume 86 fL (79-100) Mean Corpuscular Hemoglobin 29 pg (25-35) Mean Corpuscular Hemoglobin Concent 33 g/dL (31-37) Red Cell Distribution Width 15.4 % (11.5-14.5) Platelet Count 237 x10^3/uL (140-400) Neutrophils (%) (Auto) 60 % (31-73) Lymphocytes (%) (Auto) 29 % (24-48) Monocytes (%) (Auto) 6 % (0-9) Eosinophils (%) (Auto) 5 % (0-3) Basophils (%) (Auto) 0 % (0-3) Neutrophils # (Auto) 6.1 x10^3uL (1.8-7.7) Lymphocytes # (Auto) 3.0 x10^3/uL (1.0-4.8) Monocytes # (Auto) 0.7 x10^3/uL (0.0-1.1) Eosinophils # (Auto) 0.5 x10^3/uL (0.0-0.7) Basophils # (Auto) 0.0 x10^3/uL (0.0-0.2) Sodium Level 136 mmol/L (136-145) Potassium Level 4.3 mmol/L (3.5-5.1) Chloride Level 99 mmol/L (98-107) Carbon Dioxide Level 31 mmol/L (21-32) Anion Gap 6 (6-14) Blood Urea Nitrogen 13 mg/dL (7-20) Creatinine 0.8 mg/dL (0.6-1.0) Estimated GFR (Cockcroft-Gault) 79.0 BUN/Creatinine Ratio 16 (6-20) Glucose Level 190 mg/dL (70-99) Calcium Level 9.2 mg/dL (8.5-10.1) Total Bilirubin 0.8 mg/dL (0.2-1.0) Aspartate Amino Transf (AST/SGOT) 22 U/L (15-37) Alanine Aminotransferase (ALT/SGPT) 30 U/L (14-59) Alkaline Phosphatase 51 U/L (46-116) Total Protein 8.0 g/dL (6.4-8.2) Albumin 3.2 g/dL (3.4-5.0) Albumin/Globulin Ratio 0.7 (1.0-1.7) Brief Hospital Course Ms. Baker is a 42 old morbid obese female who presented with bronchitis and possible pneumonia. (SERVANDO NINA MD) Discharge Information Condition at Discharge: Improved, Stable Disposition/Orders: D/C to Home Dischare Medications Active Scripts Active Doxycycline Hyclate 100 Mg Tablet.dr 100 Mg PO BID 10 Days Orphenadrine Citrate 100 Mg Tablet.er 100 Mg PO BID Meloxicam 7.5 Mg Tablet 7.5 Mg PO DAILY Levsin (Hyoscyamine Sulfate) 0.125 Mg Tablet 0.125 Mg PO QID Reglan (Metoclopramide Hcl) 10 Mg Tablet 10 Mg PO QID Levsin (Hyoscyamine Sulfate) 0.125 Mg Tablet 0.125 Mg PO QID Tessalon Perle (Benzonatate) 100 Mg Capsule 1 Cap PO TID Zithromax (Azithromycin) 250 Mg Tablet 1 Pkg PO UD Tramadol Hcl (Tramadol HCl) 50 Mg Tablet 50 Mg PO PRN Q6HRS PRN 2 Days Benedict 5-325 Tablet (Hydrocodone Bit/Acetaminophen) 1 Each Tablet 1-2 Tab PO Q6HRS PRN Reported Atorvastatin Calcium 40 Mg Tablet 1 Tab PO DAILY last dose this morning next dose tomorrow Onglyza (Saxagliptin Hcl) 5 Mg Tablet 1 Tab PO DAILY last dose this morning next dose tomorrow Lisinopril 40 Mg Tablet 1 Tab PO DAILY last dose this morning next dose tomorrow Glipizide 5 Mg Tablet 1 Tab PO BID last dose this morning next dose tonight Furosemide 40 Mg Tablet 1 Tab PO DAILY last dose this morning next dose tomorrow Fenofibrate 160 Mg Tablet 1 Tab PO DAILY last dose this morning next dose tomorrow Citalopram Hbr (Citalopram Hydrobromide) 40 Mg Tablet 40 Mg PO DAILY last dose this morning next dose tomorrow Amlodipine Besylate 5 Mg Tablet 1 PO DAILY last dose this morning next dose tomorrow Aspir-Low (Aspirin) 81 Mg Tablet.dr 1 Tab PO DAILY last dose this morning next dose tomorrow Spironolactone 25 Mg Tablet 1 PO DAILY last dose this morning next dose tomorrow Omeprazole 40 Mg Capsule.dr 1 Cap PO DAILY last dose this morning next dose tomorrow (SERVANDO NINA MD) Dragon Disclaimer This chart was dictated in whole or in part using Voice Recognition software in a busy, high-work load, and often noisy Emergency Department environment. It may contain unintended and wholly unrecognized errors or omissions. (SERVANDO NINA MD) LEATHA OAKES DO Sep 11, 2018 17:55 SERVANDO NINA MD Sep 11, 2018 23:21
[2018-09-11 18:08] LABS: BASO % 0 % (0-3); EOS # 0.5 x10^3/uL (0.0-0.7); EOS % 5 % (0-3); HEMATOCRIT 42.2 % (36.0-47.0); LYMPH % 29 % (24-48); MEAN CORPUSCULAR HEMOGLOBIN 29 pg (25-35); MEAN CORPUSCULAR HGB CONC 33 g/dL (31-37); MEAN CORPUSCULAR VOLUME 86 fL (79-100); MONO # 0.7 x10^3/uL (0.0-1.1); MONO % 6 % (0-9); NEUT # 6.1 x10^3uL (1.8-7.7); NEUT % 60 % (31-73); PLATELET COUNT 237 x10^3/uL (140-400); RED BLOOD COUNT 4.91 x10^6/uL (3.50-5.40); RED CELL DISTRIBUTION WIDTH 15.4 % (11.5-14.5); WHITE BLOOD COUNT 10.3 x10^3/uL (4.0-11.0)
[2018-09-11 18:23] LABS: ALBUMIN 3.2 g/dL (3.4-5.0); ALBUMIN/GLOBULIN RATIO 0.7 (1.0-1.7); CALCIUM 9.2 mg/dL (8.5-10.1); CREATININE 0.8 mg/dL (0.6-1.0); POTASSIUM 4.3 mmol/L (3.5-5.1); TOTAL BILIRUBIN 0.8 mg/dL (0.2-1.0)
[2018-09-11] MEDS ORDERED: DOXY100T9 PO (20:22)
[2018-09-11 20:55] VITALS: BP 123/85
--- NOTE | 2018-09-11 21:31 | RAD ---
PA and lateral chest radiographs 09/11/2018 CLINICAL HISTORY: Shortness of breath and cough for 2 days. PA and lateral digital radiographs of the chest were obtained. Comparison study is dated 12/22/2017. The cardiac silhouette is borderline enlarged. The thoracic aorta is mildly tortuous. No area of consolidation is seen. Subsegmental atelectasis is seen involving the right lower lobe. No pleural effusion is noted. The osseous structures are grossly intact. IMPRESSION: Right lower lobe subsegmental atelectasis. No area of consolidation is seen. Electronically signed by: Marcelino Payne MD (09/11/2018 9:28 PM) [facility]
== END 2018-09-11 20:55 | disposition home or self-care (01) ==
LOC: ER 17:09
DX: J18.9 Pneumonia, unspecified organism (principal); J40 Bronchitis, not specified as acute or chronic; I11.0 Hypertensive heart disease with heart failure; I50.9 Heart failure, unspecified; E11.9 Type 2 diabetes mellitus without complications; E78.00 Pure hypercholesterolemia, unspecified; F17.210 Nicotine dependence, cigarettes, uncomplicated; E66.01 Morbid (severe) obesity due to excess calories; Z68.44 Body mass index [BMI] 60.0-69.9, adult; Z88.0 Allergy status to penicillin
CPT/HCPCS: 36415; 71046; 80053; 85025; 99285

== ENCOUNTER 2019-05-02 21:28 | Emergency (ER) | payer OTHER ==
[~2019-05-02] VITALS: Ht 167.6 cm; Wt 186.6 kg
[~2019-05-02 21:28] MED LIST changes: +DOXY-96 PO; +FENO145T3 PO; -FENO145T30 PO; +OMEP40CA45 PO; -OMEP40CA5 PO
[2019-05-02] MEDS ORDERED: losartan (22:11)
[2019-05-02] MEDS ORDERED: coreg (22:11)
[2019-05-02] MEDS ORDERED: metformin (22:11)
[2019-05-02] MEDS ORDERED: ALBUTEROL SULFATE 2.5 MG/3 ML NEBU. NEB ONE (22:15)
--- NOTE | 2019-05-02 22:25 | RAD ---
CHEST PA LATERAL INDICATION: Dyspnea. COMPARISON STUDY: 09/28/2018. FINDINGS: Lungs: Normal lung volume. No pulmonary mass or consolidation. The tracheobronchial tree and hilar structures are normal. Pleura: No pleural effusion or pneumothorax. Heart and Mediastinum: Stable cardiomediastinal silhouette and great vessels. IMPRESSION: No consolidation. Electronically signed by: Joe Spievy MD (05/02/2019 10:22 PM) [id number]
--- NOTE | 2019-05-02 22:28 | PHYS DOC ---
Past History Past Medical History: CHF, Diabetes, High Cholesterol, Hypertension, Ovarian Cyst, Other Past Surgical History: No Surgical History Smoking: Cigarettes Alcohol Use: None Drug Use: None Adult General Chief Complaint Chief Complaint: shortness of breath HPI HPI 43-year-old female presents with increased shortness of breath. For about the last 1 week she feels like it is more difficult to take a deep breath. She does get some right-sided chest discomfort with deep breathing. She says it is not really chest pain, just discomfort. She also gets this discomfort with direct palpation as well as laying on her right side. She has had a mild, intermittent cough with no sputum production. She has not felt feverish. No chills. Her exercise tolerance is the same as always. She does feel a little more fatigued after she sits back down than usual, but it has not made it difficult to perform daily activities. She is an intermittent smoker. No diagnosis of COPD. Review of Systems Review of Systems Constitutional: Denies fever or chills [] Eyes: Denies change in visual acuity, redness, or eye pain [] HENT: Denies nasal congestion or sore throat [] Respiratory: shortness of breath [] Cardiovascular: No additional information not addressed in HPI [] GI: Denies abdominal pain, nausea, vomiting, bloody stools or diarrhea [] : Denies dysuria or hematuria [] Musculoskeletal: Denies back pain or joint pain [] Integument: Denies rash or skin lesions [] Neurologic: Denies headache, focal weakness or sensory changes [] Endocrine: Denies polyuria or polydipsia [] All other systems were reviewed and found to be within normal limits, except as documented in this note. Current Medications Current Medications Current Medications Medications (Trade) Dose Ordered Sig/Cami Start Time Stop Time Status Last Admin Dose Admin Albuterol Sulfate (Ventolin) 2.5 mg 1X ONCE 05/02/19 22:15 05/02/19 22:16 Allergies Allergies Allergies Coded Allergies Type Severity Reaction Last Updated Verified Penicillins Allergy Severe sob 05/02/19 No Physical Exam Physical Exam Constitutional: Well developed, morbidly obese, well nourished, no acute distress, non-toxic appearance. [] HENT: Normocephalic, atraumatic, bilateral external ears normal, oropharynx mois t, no oral exudates, nose normal. [] Eyes: PERRLA, EOMI, conjunctiva normal, no discharge. [] Neck: Normal range of motion, no tenderness, supple, no stridor. [] Cardiovascular:Heart rate regular rhythm, no murmur [] Lungs & Thorax: Bilateral breath sounds clear to auscultation. Mild right-sided chest tenderness with palpation. [] Abdomen: Bowel sounds normal, soft, no tenderness, no masses, no pulsatile masses. [] Skin: Warm, dry, no erythema, no rash. [] Back: No tenderness, no CVA tenderness. [] Extremities: No tenderness, no cyanosis, no clubbing, ROM intact, no edema. [] Neurologic: Alert and oriented X 3, normal motor function, normal sensory function, no focal deficits noted. [] Psychologic: Affect normal, judgement normal, mood normal. [] EKG EKG Sinus rhythm, rate 96, normal axis, no ST elevations or depressions.[] Radiology/Procedures Radiology/Procedures [] Impressions: CHEST PA LATERAL INDICATION: Dyspnea. COMPARISON STUDY: 09/28/2018. FINDINGS: Lungs: Normal lung volume. No pulmonary mass or consolidation. The tracheobronchial tree and hilar structures are normal. Pleura: No pleural effusion or pneumothorax. Heart and Mediastinum: Stable cardiomediastinal silhouette and great vessels. IMPRESSION: No consolidation. Electronically signed by: Abrahan Ding MD (05/02/2019 10:22 PM) [id number] DICTATED AND SIGNED BY: ABRAHAN DING MD DATE: 05/02/192221 CC: LEATHA OAKES DO; NON,STAFF ~ Course & Med Decision Making Course & Med Decision Making Pertinent Labs and Imaging studies reviewed. (See chart for details) The patient's EKG is unremarkable. Her chest x-ray is unremarkable. Her labs are unremarkable except for a white count 13.8. Review of her chart shows that she has had many similar high normal or mildly elevated white counts over the last 5 years. Her troponin is negative. ProBNP is negative. The patient was given an albuterol breathing treatment. The breathing treatment didn't really make a difference. Further discussion with the patient reveals that is very position dependent. It is most painful when she lays on her right side. It is alleviated by laying on her back. Laying on her left side. This is further evidence that is likely musculoskeletal. I do not see any cardiopulmonary cause this time. She is stable for discharge. [] Dragon Disclaimer Dragon Disclaimer This electronic medical record was generated, in whole or in part, using a voice recognition dictation system. Departure Departure: Impression: Primary Impression: Shortness of breath Additional Impression: Chest wall pain Disposition: HOME, SELF-CARE Condition: STABLE Referrals: NON,STAFF (PCP) Patient Instructions: Chest Wall Pain, [id number], Shortness of Breath, [id number] Problem Qualifiers LEATHA OAKES DO May 02, 2019 22:28
[2019-05-02 22:38] LABS: BASO # 0.1 x10^3/uL (0.0-0.2); BASO % 1 % (0-3); EOS # 0.4 x10^3/uL (0.0-0.7); EOS % 3 % (0-3); HEMATOCRIT 43.8 % (36.0-47.0); HEMOGLOBIN 14.1 g/dL (12.0-15.5); LYMPH # 4.1 x10^3/uL (1.0-4.8); LYMPH % 30 % (24-48); MEAN CORPUSCULAR HEMOGLOBIN 28 pg (25-35); MEAN CORPUSCULAR HGB CONC 32 g/dL (31-37); MEAN CORPUSCULAR VOLUME 86 fL (79-100); MONO # 0.7 x10^3/uL (0.0-1.1); MONO % 5 % (0-9); NEUT # 8.5 x10^3uL (1.8-7.7); NEUT % 61 % (31-73); PLATELET COUNT 299 x10^3/uL (140-400); RED BLOOD COUNT 5.08 x10^6/uL (3.50-5.40); RED CELL DISTRIBUTION WIDTH 15.4 % (11.5-14.5); WHITE BLOOD COUNT 13.8 x10^3/uL (4.0-11.0)
[2019-05-02 23:11] LABS: CALCIUM 8.7 mg/dL (8.5-10.1); CREATININE 0.9 mg/dL (0.6-1.0); GFR 68.7; POTASSIUM 4.5 mmol/L (3.5-5.1)
[2019-05-02 23:14] LABS: ALBUMIN 3.2 g/dL (3.4-5.0); ALBUMIN/GLOBULIN RATIO 0.7 (1.0-1.7); TOTAL BILIRUBIN 0.4 mg/dL (0.2-1.0); TOTAL PROTEIN 7.7 g/dL (6.4-8.2)
[2019-05-02 23:15] VITALS: BP 137/95
--- NOTE | 2019-05-03 02:04 | EKG ---
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
== END 2019-05-02 23:36 | disposition home or self-care (01) ==
LOC: ER 21:28
DX: R06.02 Shortness of breath (principal); R07.89 Other chest pain; E78.00 Pure hypercholesterolemia, unspecified; I11.0 Hypertensive heart disease with heart failure; I50.9 Heart failure, unspecified; E11.9 Type 2 diabetes mellitus without complications; F17.210 Nicotine dependence, cigarettes, uncomplicated; Z88.0 Allergy status to penicillin
CPT/HCPCS: 36415; 71046; 80053; 83880; 84484; 85025; 93005; 94640; 99285; J7613

== ENCOUNTER 2019-06-29 14:00 | Emergency (ER) | payer OTHER ==
[~2019-06-29] VITALS: Ht 167.6 cm; Wt 186.6 kg
[~2019-06-29 14:00] MED LIST changes: +AMLO-186 PO; -AMLO5TAB10 PO; +coreg; +losartan; +metformin
[2019-06-29 14:08] VITALS: BP 156/92
[2019-06-29] MEDS ORDERED: POLY10DR3 OD (15:30)
--- NOTE | 2019-06-29 15:30 | PHYS DOC ---
Past History Past Medical History: CHF, Diabetes, High Cholesterol, Hypertension, Ovarian Cyst, Other Additional Past Medical Histor: polysubstance abuse, SI attempt by overdose Past Surgical History: No Surgical History Additional Past Surgical Histo: rt ear tubes x6; lt ear tubes x7 Smoking: Cigarettes Alcohol Use: None Drug Use: None General Adult EDM: Chief Complaint: EYE PROBLEMS HPI: HPI: Patient is 43-year-old female who presented to ER today for evaluation of right lower eyelid area swollen and tender for 2 days. Patient denies any visual problem. Patient denies any fever. Patient denies any discharge. Review of Systems: Review of Systems: Constitutional: Denies fever or chills Eyes: Denies change in visual acuity . Positive for right lower eyelid swelling and tender. HENT: Denies nasal congestion or sore throat Respiratory: Denies cough or shortness of breath Cardiovascular: Denies chest pain or edema GI: Denies abdominal pain, nausea, vomiting, bloody stools or diarrhea : Denies dysuria Musculoskeletal: Denies back pain or joint pain Integument: Denies rash Neurologic: Denies headache, focal weakness or sensory changes Endocrine: Denies polyuria or polydipsia Lymphatic: Denies swollen glands Psychiatric: Denies depression or anxiety Heart Score: Risk Factors: Risk Factors: DM, Current or recent (<one month) smoker, HTN, HLP, family history of CAD, obesity. Risk Scores: Score 0 - 3: 2.5% MACE over next 6 weeks - Discharge Home Score 4 - 6: 20.3% MACE over next 6 weeks - Admit for Clinical Observation Score 7 - 10: 72.7% MACE over next 6 weeks - Early Invasive Strategies Allergies: Allergies: Allergies Coded Allergies Type Severity Reaction Last Updated Verified Penicillins Allergy Severe sob 05/02/19 No Physical Exam: PE: Constitutional: Well developed, well nourished, no acute distress, non-toxic appearance. [] HENT: Normocephalic, atraumatic, bilateral external ears normal, oropharynx moist, no oral exudates, nose normal. [] Eyes: PERRLA, EOMI, conjunctiva normal, no discharge. RIGHT LOWER EYELID MARGIN IS SWOLLEN AT THE MEDIAL CANTHUS AREA CONSISTENT WITH A HORDEOLUM. NO PURULENT DRAINAGE. THERE IS NO PERIORBITAL ERYTHEMA OR CELLULITIS. Neck: Normal range of motion, no tenderness, supple, no stridor. [] Cardiovascular:Heart rate regular rhythm, no murmur [] Lungs & Thorax: Bilateral breath sounds clear to auscultation [] Abdomen: Bowel sounds normal, soft, no tenderness, no masses, no pulsatile masses. [] Skin: Warm, dry, no erythema, no rash. [] Back: No tenderness, no CVA tenderness. [] Extremities: No tenderness, no cyanosis, no clubbing, ROM intact, no edema. [] Neurologic: Alert and oriented X 3, normal motor function, normal sensory function, no focal deficits noted. [] Psychologic: Affect normal, judgement normal, mood normal. [] Current Patient Data: Vital Signs: Vital Signs Date Time Temp Pulse Resp B/P (MAP) Pulse Ox O2 Delivery O2 Flow Rate FiO2 06/29/19 14:08 97.9 106 16 156/92 (113) 94 Room Air EKG: EKG: [] Radiology/Procedures: Radiology/Procedures: [] Course & Med Decision Making: Course & Med Decision Making Pertinent Labs and Imaging studies reviewed. (See chart for details) [] Dragon Disclaimer: Dragon Disclaimer: This electronic medical record was generated, in whole or in part, using a voice recognition dictation system. Departure Departure: Impression: Primary Impression: Stye external Disposition: 01 HOME, SELF-CARE Condition: STABLE Referrals: PCP,NO (PCP) follow up with your doctor in 2 days for reevaluation Patient Instructions: Sty Scripts Polymyxin B Sulf/Trimethoprim (POLYMYXIN B-TMP EYE DROPS) 10 Ml Drops 1 DROP OD QID for right eye infection for 7 Days, #10 ML 0 Refills Prov: DEBI LUEVANO DO 06/29/19 DEBI LUEVANO DO Jun 29, 2019 15:30
[2019-10-25] MEDS ORDERED: AMLO-187 PO (07:01)
== END 2019-06-29 15:37 | disposition home or self-care (01) ==
LOC: ER 14:00
DX: H00.012 Hordeolum externum right lower eyelid (principal); I11.0 Hypertensive heart disease with heart failure; I50.9 Heart failure, unspecified; E11.9 Type 2 diabetes mellitus without complications; E78.00 Pure hypercholesterolemia, unspecified; F17.210 Nicotine dependence, cigarettes, uncomplicated; Z88.0 Allergy status to penicillin
CPT/HCPCS: 99283

== ENCOUNTER 2019-10-25 00:55 | Observation (INO) | payer OTHER ==
[~2019-10-25] VITALS: Ht 170.2 cm; Wt 187.8 kg
[~2019-10-25 00:55] MED LIST changes: -AMLO-186 PO; +AMLO5TAB10 PO; +POLY10DR3 OD
[2019-10-25 01:36] LABS: CALCIUM 8.8 mg/dL (8.5-10.1); CREATININE 0.9 mg/dL (0.6-1.0); GFR 68.7; POTASSIUM 4.1 mmol/L (3.5-5.1)
--- NOTE | 2019-10-25 01:48 | RAD ---
AP chest x-ray HISTORY: Chest pain. COMPARISON: Chest x-ray May 02, 2019. FINDINGS: Moderate cardiomegaly stable. Enlargement of the main pulmonary artery silhouette and of the more peripheral hilar and lobar pulmonary arteries may indicate pulmonary hypertension, stable. No pneumothorax, pulmonary opacities or pleural effusions. Bones unremarkable. IMPRESSION: No acute process. Stable exam as described above. Electronically signed by: Hakan Cortes MD (10/25/2019 1:45 AM) [facility]
[2019-10-25 01:49] LABS: ALBUMIN 3.1 g/dL (3.4-5.0); ALBUMIN/GLOBULIN RATIO 0.7 (1.0-1.7); MAGNESIUM 1.9 mg/dL (1.8-2.4); TOTAL BILIRUBIN 0.5 mg/dL (0.2-1.0); TOTAL PROTEIN 7.8 g/dL (6.4-8.2)
--- NOTE | 2019-10-25 01:59 | EKG ---
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
[2019-10-25 02:19] LABS: BASO # 0.1 x10^3/uL (0.0-0.2); BASO % 1 % (0-3); EOS # 0.5 x10^3/uL (0.0-0.7); EOS % 4 % (0-3); HEMATOCRIT 44.5 % (36.0-47.0); HEMOGLOBIN 14.5 g/dL (12.0-15.5); LYMPH # 4.5 x10^3/uL (1.0-4.8); LYMPH % 33 % (24-48); MEAN CORPUSCULAR HEMOGLOBIN 28 pg (25-35); MEAN CORPUSCULAR HGB CONC 33 g/dL (31-37); MEAN CORPUSCULAR VOLUME 86 fL (79-100); MONO # 0.6 x10^3/uL (0.0-1.1); MONO % 5 % (0-9); NEUT # 7.8 x10^3uL (1.8-7.7); NEUT % 58 % (31-73); PLATELET COUNT 286 x10^3/uL (140-400); RED CELL DISTRIBUTION WIDTH 15.5 % (11.5-14.5); WHITE BLOOD COUNT 13.5 x10^3/uL (4.0-11.0)
[2019-10-25 02:56] LABS: BACTERIA,URINE FEW /HPF (0-FEW); BILIRUBIN,URINE NEG (NEG); CLARITY,URINE HAZY; COLOR,URINE YELLOW; GLUCOSE,URINE NEG (NEG); NITRITE,URINE NEG (NEG); RBC,URINE 0 /HPF (0-2); SQUAMOUS EPITHELIAL CELL,UR MANY /LPF; UROBILINOGEN,URINE 0.2 mg/dL (0.2 mg/dL)
[2019-10-25] MEDS ORDERED: ONDANSETRON PF 4 MG/2 ML VIAL. IVP PRN (03:00)
--- NOTE | 2019-10-25 03:07 | PHYS DOC ---
Past History Past Medical History: CHF, Diabetes, High Cholesterol, Hypertension, Ovarian Cyst, Other Additional Past Medical Histor: polysubstance abuse, SI attempt by overdose Past Surgical History: Other Additional Past Surgical Histo: rt ear tubes x6; lt ear tubes x7 Smoking: Cigarettes Alcohol Use: Occasionally Drug Use: None General Adult EDM: Chief Complaint: CHEST PAIN HPI: HPI: Patient is a 43-year-old female who presented to ER today for evaluation of substernal chest pain that radiated to her back started around midnight tonight. Patient denies any cough or fever, no abdominal pain, no nausea vomiting. Patient denies been exposure to anybody who tested positive COVID-19. Patient do have a history of diabetes, hypertension, congestive heart failure. Patient never had history of heart attack before. Patient denies any recent travel or operation. Patient denies any history of blood clot disorder. Review of Systems: Review of Systems: Constitutional: Denies fever or chills Eyes: Denies change in visual acuity HENT: Denies nasal congestion or sore throat Respiratory: Denies cough or shortness of breath Cardiovascular: positive for chest pain GI: Denies abdominal pain, nausea, vomiting, bloody stools or diarrhea : Denies dysuria Musculoskeletal: Denies back pain or joint pain Integument: Denies rash Neurologic: Denies headache, focal weakness or sensory changes Endocrine: Denies polyuria or polydipsia Lymphatic: Denies swollen glands Psychiatric: Denies depression or anxiety Heart Score: HEART Score for Chest Pain: HEART Score for Chest Pain Response (Comments) Value History Moderately Suspicious 1 Age < 45 0 Risk Factors >3 Risk Factors or Hx CAD 2 Troponin < Normal Limit 0 Total 3 Risk Factors: Risk Factors: DM, Current or recent (<one month) smoker, HTN, HLP, family history of CAD, obesity. Risk Scores: Score 0 - 3: 2.5% MACE over next 6 weeks - Discharge Home Score 4 - 6: 20.3% MACE over next 6 weeks - Admit for Clinical Observation Score 7 - 10: 72.7% MACE over next 6 weeks - Early Invasive Strategies Current Medications: Current Meds: Current Medications Medications (Trade) Dose Ordered Sig/Cami Start Time Stop Time Status Last Admin Dose Admin Aspirin (Juan Carlos Aspirin) 325 mg 1X ONCE 10/25/19 03:00 10/25/19 03:01 UNV Ondansetron HCl (Zofran) 4 mg PRN Q4HRS PRN 10/25/19 03:00 10/26/19 02:59 UNV Allergies: Allergies: Allergies Coded Allergies Type Severity Reaction Last Updated Verified Penicillins Allergy Severe sob 05/02/19 No Physical Exam: PE: Constitutional: Well developed, well nourished, no acute distress, non-toxic appearance. [] HENT: Normocephalic, atraumatic, bilateral external ears normal, oropharynx moist, no oral exudates, nose normal. [] Eyes: PERRLA, EOMI, conjunctiva normal, no discharge. [] Neck: Normal range of motion, no tenderness, supple, no stridor. [] Cardiovascular:Heart rate regular rhythm, no murmur [] Lungs & Thorax: Bilateral breath sounds clear to auscultation [] Abdomen: Bowel sounds normal, soft, no tenderness, no masses, no pulsatile masses. [] Skin: Warm, dry, no erythema, no rash. [] Back: No tenderness, no CVA tenderness. [] Extremities: No tenderness, no cyanosis, no clubbing, ROM intact, pitting edema in legs, 2 plus. Neurologic: Alert and oriented X 3, normal motor function, normal sensory function, no focal deficits noted. [] Psychologic: Affect normal, judgement normal, mood normal. [] Current Patient Data: Labs: Laboratory Tests Test 10/25/19 01:10 10/25/19 01:16 10/25/19 02:05 White Blood Count 13.5 x10^3/uL (4.0-11.0) H Red Blood Count 5.20 x10^6/uL (3.50-5.40) Hemoglobin 14.5 g/dL (12.0-15.5) Hematocrit 44.5 % (36.0-47.0) Mean Corpuscular Volume 86 fL (79-100) Mean Corpuscular Hemoglobin 28 pg (25-35) Mean Corpuscular Hemoglobin Concent 33 g/dL (31-37) Red Cell Distribution Width 15.5 % (11.5-14.5) H Platelet Count 286 x10^3/uL (140-400) Neutrophils (%) (Auto) 58 % (31-73) Lymphocytes (%) (Auto) 33 % (24-48) Monocytes (%) (Auto) 5 % (0-9) Eosinophils (%) (Auto) 4 % (0-3) H Basophils (%) (Auto) 1 % (0-3) Neutrophils # (Auto) 7.8 x10^3uL (1.8-7.7) H Lymphocytes # (Auto) 4.5 x10^3/uL (1.0-4.8) Monocytes # (Auto) 0.6 x10^3/uL (0.0-1.1) Eosinophils # (Auto) 0.5 x10^3/uL (0.0-0.7) Basophils # (Auto) 0.1 x10^3/uL (0.0-0.2) Prothrombin Time 9.9 SEC (9.4-11.4) Prothrombin Time INR 1.0 (0.9-1.1) Activated Partial Thromboplast Time 23 SEC (23-33) Sodium Level 138 mmol/L (136-145) Potassium Level 4.1 mmol/L (3.5-5.1) Chloride Level 101 mmol/L (98-107) Carbon Dioxide Level 30 mmol/L (21-32) Anion Gap 7 (6-14) Blood Urea Nitrogen 7 mg/dL (7-20) Creatinine 0.9 mg/dL (0.6-1.0) Estimated GFR (Cockcroft-Gault) 68.7 BUN/Creatinine Ratio 8 (6-20) Glucose Level 193 mg/dL (70-99) H Calcium Level 8.8 mg/dL (8.5-10.1) Magnesium Level 1.9 mg/dL (1.8-2.4) Total Bilirubin 0.5 mg/dL (0.2-1.0) Aspartate Amino Transferase (AST) 18 U/L (15-37) Alanine Aminotransferase (ALT) 30 U/L (14-59) Alkaline Phosphatase 63 U/L (46-116) Creatine Kinase 38 U/L (26-192) Troponin I Quantitative < 0.017 ng/mL (0-0.055) WJ-Xuv-U-Type Natriuretic Peptide 74 pg/mL (0-124) Total Protein 7.8 g/dL (6.4-8.2) Albumin 3.1 g/dL (3.4-5.0) L Albumin/Globulin Ratio 0.7 (1.0-1.7) L Lipase 192 U/L (73-393) Glucose (Fingerstick) 183 mg/dL (70-99) H Urine Collection Type Unknown Urine Color Yellow Urine Clarity Hazy Urine pH 6.0 Urine Specific [place] 1.025 Urine Protein Trace (NEG-TRACE) Urine Glucose (UA) Neg mg/dL (NEG) Urine Ketones (Stick) Neg mg/dL (NEG) Urine Blood Neg (NEG) Urine Nitrite Neg (NEG) Urine Bilirubin Neg (NEG) Urine Urobilinogen Dipstick 0.2 mg/dL (0.2 mg/dL) Urine Leukocyte Esterase Neg (NEG) Urine RBC 0 /HPF (0-2) Urine WBC 1-4 /HPF (0-4) Urine Squamous Epithelial Cells Many /LPF Urine Bacteria Few /HPF (0-FEW) Vital Signs: Vital Signs Date Time Temp Pulse Resp B/P (MAP) Pulse Ox O2 Delivery O2 Flow Rate FiO2 10/25/19 02:40 93 23 140/90 (107) 94 Room Air 10/25/19 01:16 97.9 EKG: EKG: EKG was done at 1052, heart rate of 97 beats per minutes, sinus rhythm, PVC pattern, incomplete right bundle branch block. No ST segment elevation. Radiology/Procedures: Radiology/Procedures: [][address] [address] IMAGING REPORT Signed PATIENT: ALAYNA RODRIGUEZ ACCOUNT: [id number] : 1975 LOCATION: ER AGE: 43 SEX: F EXAM STATUS: REG ER ORD. PHYSICIAN: DEBI LUEVANO DO REASON: chest pain PROCEDURE: PORTABLE CHEST 1V AP chest x-ray HISTORY: Chest pain. COMPARISON: Chest x-ray May 02, 2019. FINDINGS: Moderate cardiomegaly stable. Enlargement of the main pulmonary artery silhouette and of the more peripheral hilar and lobar pulmonary arteries may indicate pulmonary hypertension, stable. No pneumothorax, pulmonary opacities or pleural effusions. Bones unremarkable. IMPRESSION: No acute process. Stable exam as described above. Electronically signed by: Pranay Cortes MD (10/25/2019 1:45 AM) [facility] [place] DICTATED AND SIGNED BY: PRANAY CORTES MD DATE: 10/25/19 0145 CC: SHAINA GLEZ MD; DEBI LUEVANO DO ~ Course & Med Decision Making: Course & Med Decision Making Pertinent Labs and Imaging studies reviewed. (See chart for details) Patient is a 43-year-old female who presented to ER today for evaluation of substernal chest pain that radiated to her back started around midnight tonight. Patient has a history of diabetes, history of hypertension, history of congenital heart failure. Her EKG shows some PVC pattern with incomplete right bundle branch block, no ST segment elevation. Cardiac enzyme is normal so far. With her risk factor we will admit her to hospital for observation. Discussed with Dr. Eduardo at 3 AM who agreed to admit the patient. Haroon Disclaimer: Haroon Disclaimer: This electronic medical record was generated, in whole or in part, using a voice recognition dictation system. Departure Departure: Impression: Primary Impression: Chest pain Disposition: ADMITTED INPATIENT Admitting Physician: Asim Eduardo Condition: STABLE Referrals: NON,STAFF (PCP) Justification of Admission: Justification of Admission: Justification of Admission Dx: No DEBI LUEVANO DO Oct 25, 2019 03:07
[2019-10-25] MEDS ORDERED: ASPIRIN 325 MG TABLET PO ONE (03:30)
[2019-10-25 06:15] VITALS: BP 154/95
[2019-10-25] MEDS ORDERED: FURO20TA3 PO (07:01)
[2019-10-25] MEDS ORDERED: PANT40TA3 PO (07:01)
[2019-10-25] MEDS ORDERED: AMLO10TA8 PO (07:01)
[2019-10-25] MEDS ORDERED: METF10007 PO (07:01)
[2019-10-25] MEDS ORDERED: CARV25TA PO (07:01)
[2019-10-25] MEDS ORDERED: GLIP5TAB10 PO (07:01)
[2019-10-25] MEDS ORDERED: LOSA50TA86 PO (07:01)
[2019-10-25] MEDS ORDERED: ESCITALOPRAM OX20 MG PO (07:01)
[2019-10-25] MEDS ORDERED: DIPH25CA58 PO (07:01)
[2019-10-25] MEDS ORDERED: ATORVASTATIN CALCIUM 20 MG TABLET PO SCH (09:00)
[2019-10-25 12:07] VITALS: BP 139/90
[2019-10-25] MEDS ORDERED: traMADol 50 MG TABLET PO PRN (15:00)
[2019-10-25] MEDS ORDERED: diphenhydrAMINE HCL 25 MG CAPSULE PO PRN (15:00)
[2019-10-25 16:30] VITALS: BP 162/114
--- NOTE | 2019-10-25 16:44 | PDOC ---
PROVIDER NOTE PROVIDER NOTE PROVIDER NOTE CC; CHEST PAIN HPI: 43 y.o woman presented with chest pain. Chest pain is non-radiating, mostly pleurtic in nature. Denies any syncope or palpitations. Pmhx: HTN DLP Obesity Probable JOSE ALBERTO Sochx: She denies any alcohol, tob or illicits. Famhx: +brother with NICM ALL: PCN Current meds reviewed. Physical exam: a/o x 3. NAD Morbidly obese normal mood and affect normal heart tones obese abdomen trace edema. Labs/ekg reviewed. Impression: 1. Pleuritic chest pain 2. prior history of NICM, based on 2011 cardiac cath at [facility] Recs 1. Continue current med regimen 2. Will have outpt echo and f/u in our office. 3. Discussed need for weight loss. Poor prognosis. Justification of Admission: Justification of Admission: Justification of Admission Dx: AARON Burgos MD Oct 25, 2019 16:44
[2019-10-25] MEDS ORDERED: HYOSCYAMINE 0.125 MG TAB.RAPDIS PO SCH (17:00)
--- NOTE | 2019-10-25 17:15 | SSS ---
ADMIT DATE: 10/25/2019 HISTORY OF PRESENT ILLNESS: The patient is a 43-year-old female patient who came to the Emergency Room complaining of substernal chest pain that radiates to her back, started around midnight last night. The patient denied any cough or fever. No abdominal pain. She did complain of nausea, but no vomiting. She rated her pain as about 4-5/10. Denied any shortness of breath or diaphoresis. She was evaluated in the Emergency Room and her EKG showed that she was in sinus rhythm with a heart rate of 97 beats per minute with incomplete right bundle-branch block. No ST-segment elevation. She has had 2 sets of cardiac enzymes that ruled out myocardial infarction and we did consult the welder/fabricator and he recommended to continue with current medical regimen. She will have an outpatient echo and follow up in Cardiology office and she was advised to attempt to lose weight. PAST MEDICAL HISTORY: Significant for type 2 diabetes mellitus, hypertension, hyperlipidemia, morbid obesity, obstructive sleep apnea. She has polycystic ovary syndrome and umbilical hernia. PAST SURGICAL HISTORY: Significant for bilateral laryngectomy. She has also had tonsillectomy and adenoidectomy. ALLERGIES: She is allergic to PENICILLIN. She developed anaphylactic shock. MEDICATIONS: She is currently on following medications: She is on diphenhydramine 25 mg every 6 hours as needed, hyoscyamine sulfate or Levsin 0.125 mg 4 times a day, fenofibrate 160 mg daily, atorvastatin calcium 40 mg at bedtime, carvedilol 25 mg once a day, amlodipine 10 mg once a day, losartan potassium 50 mg once a day, spironolactone 25 mg daily. She is on aspirin 81 mg once a day, tramadol 50 mg every 6 hours. She is on escitalopram oxalate 20 mg once a day, furosemide 20 mg once a day, Protonix 40 mg twice a day, metformin 1000 mg daily. She is on glipizide 5 mg once a day. FAMILY HISTORY: She has 1 brother and 2 sisters, all younger. Her brother has congestive heart failure, hypertension, hyperlipidemia and diabetes. Her sisters are younger, but generally healthy. Her father at age of 48 because of myocardial infarction. Her mother is still alive at the age of 66 and has type 2 diabetes, asthma and hypertension. SOCIAL HISTORY: She has never , has no children. She quit smoking in 2009. She does not drink alcohol. The patient uses recreational drugs. She is a retired [employer]. REVIEW OF SYSTEMS: The patient denied any blurring of vision, cataract, glaucoma or macular degeneration. Denied any earache, tinnitus or sensorineural deafness. Denied any nosebleeds, stuffy nose or postnasal drip. Denied any sore throat, sore tongue, toothache, hoarseness of voice or difficulty swallowing. Did complain of nausea, but no vomiting. Denied any diarrhea or constipation. Denied any hematemesis, melena or hematochezia. Denied any dysuria, frequency or hematuria. She did complain of chest pain, but denied any shortness of breath, orthopnea or paroxysmal nocturnal dyspnea. Denied any cough, phlegm or hemoptysis. Denied any dizziness, lightheadedness, or vertigo. PHYSICAL EXAMINATION: GENERAL: On arrival to the Emergency Room, she looked well and was clearly in no apparent respiratory distress. No pallor, jaundice, cyanosis or thyromegaly. No jugular venous distention. No limb edema. VITAL SIGNS: Heart rate was 98, blood pressure 149/101, temperature was 97.9, respiratory rate was 18 and oxygen saturation was 97%. HEAD, EYES, EARS, NOSE AND THROAT: Showed normocephalic, atraumatic. NECK: Supple. HEART: Showed normal first and second heart sounds. No gallop, rub or murmur. CHEST: Clear to auscultation. No crepitation or rhonchi. ABDOMEN: Markedly distended, soft, nontender. NEUROLOGIC: She was grossly intact. LABORATORY DATA: Showed that her serum sodium was 138, potassium 4.1, chloride 101, bicarbonate 30, anion gap of 7, BUN 7, creatinine 0.9, estimated GFR was 68 mL per minute. Her glucose 193, calcium was 8.8, magnesium was 1.9. Total bilirubin, AST, ALT, alkaline phosphatase were normal. The CK was 38. Total protein was 7.8, albumin was 3.1 and lipase was 192. Her PT, INR and aPTT are all normal. Urinalysis was essentially unremarkable. She has 2 sets of cardiac enzymes that ruled out myocardial infarction. The patient was discharged home to continue with all her current medications that include amlodipine besylate 10 mg once a day, aspirin 81 mg once a day, atorvastatin 40 mg at bedtime, carvedilol 25 mg daily, diphenhydramine 25 mg every 6 hours as needed, escitalopram oxalate 20 mg daily, fenofibrate 160 mg once a day, furosemide 20 mg once a day, glipizide 5 mg once a day, hyoscyamine sulfate 0.125 mg 4 times a day, losartan potassium or Cozaar 50 mg once a day, metformin 1000 mg once a day, Protonix 40 mg twice a day, spironolactone 25 mg once a day, tramadol 50 mg every 6 hours. FINAL DISCHARGE DIAGNOSES: Chest pain, atypical, acute myocardial infarction ruled out. Other medical problems include hypertension, hyperlipidemia, morbid obesity, obstructive sleep apnea, type 2 diabetes and history of nonischemic cardiomyopathy. CESAR TREJO MD DR: ROSALINA/joan JOB#: [id number] / [id number]
[2019-10-25] MEDS ORDERED: PANTOPRAZOLE 40 MG TABLET. PO SCH (21:00)
[2019-10-26] MEDS ORDERED: metFORMIN 500 MG TABLET PO SCH (08:00)
[2019-10-26] MEDS ORDERED: CITALOPRAM 20 MG TABLET. PO SCH (09:00)
[2019-10-26] MEDS ORDERED: FUROSEMIDE 20 MG TABLET PO SCH (09:00)
[2019-10-26] MEDS ORDERED: CARVEDILOL 12.5 MG TABLET PO SCH (09:00)
[2019-10-26] MEDS ORDERED: ASPIRIN ENTERIC COATED 81 MG TABLET.DR. PO SCH (09:00)
[2019-10-26] MEDS ORDERED: amLODIPine BESYLATE 10 MG TABLET PO SCH (09:00)
[2019-10-26] MEDS ORDERED: FENOFIBRATE NANOCRYSTALLIZED 145 MG TABLET PO SCH (09:00)
[2019-10-26] MEDS ORDERED: ATORVASTATIN CALCIUM 20 MG TABLET PO SCH (09:00)
[2019-10-26] MEDS ORDERED: SPIRONOLACTONE 25 MG TABLET PO SCH (09:00)
[2019-10-26] MEDS ORDERED: glipiZIDE 5 MG TABLET PO SCH (09:00)
[2019-10-26] MEDS ORDERED: LOSARTAN 50 MG TABLET. PO SCH (09:00)
== END 2019-10-25 17:10 | disposition home or self-care (01) ==
LOC: ER 00:55 → ICU 02:57
PROVIDERS: ADMIT Internal Medicine; ATTEND Internal Medicine
DX: R07.89 Other chest pain (principal); E78.5 Hyperlipidemia, unspecified; I42.8 Other cardiomyopathies; E66.01 Morbid (severe) obesity due to excess calories; G47.33 Obstructive sleep apnea (adult) (pediatric); E78.00 Pure hypercholesterolemia, unspecified; E11.9 Type 2 diabetes mellitus without complications; I45.10 Unspecified right bundle-branch block; I50.9 Heart failure, unspecified; I11.0 Hypertensive heart disease with heart failure; Z87.891 Personal history of nicotine dependence
CPT/HCPCS: 36415; 71045; 80053; 81001; 82550; 82947; 83690; 83735; 83880; 84484; 85025; 85610; 85730; 93005; 99285; G0378; G0379

== ENCOUNTER → 2020-06-02 | Outpatient (CLI) | payer OTHER ==
[~2020-06-02] MED LIST changes: +AMLO-186 PO; +AMLO-187 PO; -AMLO5TAB10 PO; +CARV25TA PO; +DIPH25CA58 PO; +ESCITALOPRAM OX20 MG PO; +LISI10TA16 PO; -LISI10TA2 PO; -LISI40TA PO; +LISI40TA6 PO; +LOSA50TA86 PO; +METF10007 PO; +PANT40TA3 PO
--- NOTE | 2020-06-02 15:59 | RAD ---
PA and lateral chest. HISTORY: Dyspnea on exertion, history of CHF PA and lateral views were taken of the chest. Heart is upper normal in size allowing for the patient' s size. There are no confluent areas of infiltrate. There is not evidence of pulmonary edema. IMPRESSION: 1. Heart borderline in size. 2. No confluent areas of infiltrate. Electronically signed by: Mook Leija MD (06/02/2020 3:57 PM) [facility]
== END ==
LOC: DXRAD 14:03
PROVIDERS: ATTEND Internal Medicine Pulmonary Disease
DX: R06.00 Dyspnea, unspecified (principal); Z86.79 Personal history of other diseases of the circulatory system
CPT/HCPCS: 71046

== ENCOUNTER 2020-06-24 15:43 | Emergency (ER) | payer OTHER ==
[~2020-06-24] VITALS: Ht 165.1 cm; Wt 184.0 kg
[2020-06-24] MEDS ORDERED: FAMOTIDINE 20 MG/2 ML VIAL IVP ONE (16:15)
[2020-06-24] MEDS ORDERED: IOHEXOL 300 MG/ML 75 ML VIAL. IV ONE (16:15)
[2020-06-24] MEDS ORDERED: KETOROLAC 15 MG/ML VIAL. IVP ONE (16:15)
[2020-06-24] MEDS ORDERED: IV NORMAL SALINE 1,000ML 1,000 ML IV ONE (16:15)
[2020-06-24 16:49] LABS: BASO # 0.1 x10^3/uL (0.0-0.2); BASO % 1 % (0-3); EOS # 0.6 x10^3/uL (0.0-0.7); EOS % 4 % (0-3); HEMATOCRIT 44.5 % (36.0-47.0); HEMOGLOBIN 14.6 g/dL (12.0-15.5); LYMPH # 2.9 x10^3/uL (1.0-4.8); LYMPH % 18 % (24-48); MEAN CORPUSCULAR HEMOGLOBIN 28 pg (25-35); MEAN CORPUSCULAR HGB CONC 33 g/dL (31-37); MEAN CORPUSCULAR VOLUME 86 fL (79-100); MONO # 0.9 x10^3/uL (0.0-1.1); MONO % 6 % (0-9); NEUT # 11.8 x10^3uL (1.8-7.7); NEUT % 73 % (31-73); PLATELET COUNT 306 x10^3/uL (140-400); RED BLOOD COUNT 5.16 x10^6/uL (3.50-5.40); RED CELL DISTRIBUTION WIDTH 15.6 % (11.5-14.5); WHITE BLOOD COUNT 16.3 x10^3/uL (4.0-11.0)
[2020-06-24 16:57] LABS: CREATININE 0.8 mg/dL (0.6-1.0); GFR 78.3; POTASSIUM 4.5 mmol/L (3.5-5.1)
[2020-06-24 17:01] LABS: BILIRUBIN,URINE NEG (NEG); CLARITY,URINE CLEAR; COLOR,URINE AMBER; GLUCOSE,URINE NEG (NEG)
[2020-06-24 17:02] LABS: BACTERIA,URINE 0 /HPF (0-FEW); NITRITE,URINE NEG (NEG); RBC,URINE 0 /HPF (0-2); SQUAMOUS EPITHELIAL CELL,UR MOD /LPF; WBC,URINE 0 /HPF (0-4)
[2020-06-24 17:03] LABS: ALBUMIN 3.2 g/dL (3.4-5.0); ALBUMIN/GLOBULIN RATIO 0.7 (1.0-1.7); TOTAL BILIRUBIN 0.8 mg/dL (0.2-1.0); TOTAL PROTEIN 7.8 g/dL (6.4-8.2)
[2020-06-24 17:41] LABS: U PREG PATIENT NEGATIVE (NEG)
--- NOTE | 2020-06-24 17:55 | RAD ---
Exam: CT abdomen and pelvis with contrast INDICATION: Right-sided abdominal pain TECHNIQUE: Sequential axial images through the abdomen and pelvis obtained following the administrati on of 75 mL of Isovue-370 IV contrast. Sagittal and coronal reformatted images were reconstructed fro m the axial data and reviewed. Comparisons: 05/16/2018 FINDINGS: Heart size is normal. No pericardial effusion. Visualized lung bases are clear. No pleural effusion. Evaluation of solid organs is limited secondary to noncontrast technique. Diffuse hepatic steatosis. Spleen, and pancreas are unremarkable. There is a 3 cm macroscopic fat containing nodule in the right adrenal gland representing myelolipoma . No perinephric inflammation or hydronephrosis. No renal or ureteral calculi are identified. Uterus is nonenlarged. There is a large fat-containing cystic lesion in the right adnexa which measur es up to 13.1 x 8.1 cm. Mild wall thickening at the sigmoid colon. Appendix is nonidentified. No free intra-abdominal air or fluid. No obstruction. Abdominal aorta has a normal course and caliber. Abdominal vasculature is patent. No enlarged intra-abdominal lymph nodes are identified. No suspicious osseous lesions or acute fractures. IMPRESSION: 1. Right adnexal dermoid/teratoma similar in size with mild adjacent free fluid. Correlate with symp tomatology to determine the need for further evaluation with ultrasound. 2. Mild diffuse hepatic steatosis. 3. Mild wall thickening at the sigmoid colon may relate to mild colitis. Exposure: One or more of the following in the visualized dose reduction techniques were utilized for this examination: 1. Automated exposure control 2. Adjustment of the MA and/or KV according to patient size 3. Use of iterative of reconstructive technique Electronically signed by: Em Alexander MD (06/24/2020 5:53 PM) [facility]
--- NOTE | 2020-06-24 18:25 | PHYS DOC ---
Past History Past Medical History: CHF, Diabetes, High Cholesterol, Hypertension, Ovarian Cyst, Other Additional Past Medical Histor: SI attempt by overdose,PERIPHERAL EDEMA, MORBID OBESITY Past Surgical History: Other Additional Past Surgical Histo: rt ear tubes x6; lt ear tubes x7 Smoking: Cigarettes Alcohol Use: None Drug Use: None General Adult EDM: Chief Complaint: ABDOMINAL PAIN HPI: HPI: Patient is a 44-year-old female presents the emergency department for right lower quadrant pain that began 5 days ago with sudden onset that began as a intermittent sharp shooting pain but today became constant. Patient came to the emergency room today because the pain was not being alleviated with any type of medication and continued to get worse. Patient first thought it could have been a cyst in her ovaries as she does have history of PCOS, but as the pain was not alleviated after few days she thought that it could have been something else. Patient does state that the pain does feel similar to other types of cyst in her ovaries that she has had. Patient states that the pain was diffuse in her right side of her abdomen until today became more focused in her right lower quadrant and radiated up to her right shoulder. Patient states that she has taken ibuprofen which has not alleviated the pain or discomfort. Patient states that the pain is severe. Patient denies any changes to urination or bowel movements, although she does state that she had a scant amount of bloody vaginal discharge on the first day the symptoms presented but the discharge has been absent since then. Patient states that lying on her right side does alleviate the pain. Patient says the pain is not alleviated by anything now. Review of Systems: Review of Systems: Constitutional: Denies fever or chills Eyes: Denies redness or eye pain HENT: Denies nasal congestion or sore throat Respiratory: Denies cough or shortness of breath Cardiovascular: Denies chest pain or palpitations GI: Denies abdominal pain, nausea, or vomiting : Denies dysuria or hematuria Musculoskeletal: Denies back pain or joint pain Integument: Denies rash or skin lesions Neurologic: Denies headache, focal weakness or sensory changes Complete systems were reviewed and found to be within normal limits, except as documented in this note. Current Medications: Current Meds: Current Medications Medications (Trade) Dose Ordered Sig/Cami Start Time Stop Time Status Last Admin Dose Admin Famotidine (Pepcid Vial) 20 mg 1X ONCE 06/24/20 16:15 06/24/20 16:24 DC 06/24/20 16:38 20 MG Iohexol (Omnipaque 300 Mg/ml) 75 ml 1X ONCE 06/24/20 16:15 06/24/20 16:24 DC 06/24/20 17:21 75 ML Ketorolac Tromethamine (Toradol 15mg Vial) 15 mg 1X ONCE 06/24/20 16:15 06/24/20 16:24 DC 06/24/20 16:36 15 MG Sodium Chloride 1,000 ml @ 1,000 mls/hr 1X ONCE 06/24/20 16:15 06/24/20 17:14 DC 06/24/20 16:34 1,000 MLS/HR Allergies: Allergies: Allergies Coded Allergies Type Severity Reaction Last Updated Verified Penicillins Allergy Severe sob 05/02/19 No Physical Exam: PE: Constitutional: Well developed, well nourished, no acute distress, non-toxic appearance HENT: Normocephalic, atraumatic Eyes: PERRL, EOMI, conjunctiva normal, no discharge Neck: Normal range of motion, no tenderness, supple Lungs & Thorax: No respiratory distress, equal chest rise and fall Abdomen: Soft, no tenderness, painful to palpation, no guarding, no rigidity Skin: Warm, dry, no erythema, no rash Back: No tenderness, no CVA tenderness Extremities: No tenderness, ROM intact, no edema Neurologic: Alert and oriented X 3, normal motor function, normal sensory function, no focal deficits noted Psychologic: Affect normal, judgment normal Current Patient Data: Labs: Laboratory Tests Test 06/24/20 16:20 06/24/20 16:25 Urine Collection Type Unknown Urine Color Estrella Urine Clarity Clear Urine pH 8.0 Urine Specific Amory 1.020 Urine Protein 30 mg/dl (NEG-TRACE) Urine Glucose (UA) Neg mg/dL (NEG) Urine Ketones (Stick) Neg mg/dL (NEG) Urine Blood Neg (NEG) Urine Nitrite Neg (NEG) Urine Bilirubin Neg (NEG) Urine Urobilinogen Dipstick 2.0 mg/dL (0.2 mg/dL) Urine Leukocyte Esterase Neg (NEG) Urine RBC 0 /HPF (0-2) Urine WBC 0 /HPF (0-4) Urine Squamous Epithelial Cells Mod /LPF Urine Bacteria 0 /HPF (0-FEW) Urine Test Negative (NEG) White Blood Count 16.3 x10^3/uL (4.0-11.0) H Red Blood Count 5.16 x10^6/uL (3.50-5.40) Hemoglobin 14.6 g/dL (12.0-15.5) Hematocrit 44.5 % (36.0-47.0) Mean Corpuscular Volume 86 fL (79-100) Mean Corpuscular Hemoglobin 28 pg (25-35) Mean Corpuscular Hemoglobin Concent 33 g/dL (31-37) Red Cell Distribution Width 15.6 % (11.5-14.5) H Platelet Count 306 x10^3/uL (140-400) Neutrophils (%) (Auto) 73 % (31-73) Lymphocytes (%) (Auto) 18 % (24-48) L Monocytes (%) (Auto) 6 % (0-9) Eosinophils (%) (Auto) 4 % (0-3) H Basophils (%) (Auto) 1 % (0-3) Neutrophils # (Auto) 11.8 x10^3uL (1.8-7.7) H Lymphocytes # (Auto) 2.9 x10^3/uL (1.0-4.8) Monocytes # (Auto) 0.9 x10^3/uL (0.0-1.1) Eosinophils # (Auto) 0.6 x10^3/uL (0.0-0.7) Basophils # (Auto) 0.1 x10^3/uL (0.0-0.2) Sodium Level 141 mmol/L (136-145) Potassium Level 4.5 mmol/L (3.5-5.1) Chloride Level 101 mmol/L (98-107) Carbon Dioxide Level 35 mmol/L (21-32) H Anion Gap 5 (6-14) L Blood Urea Nitrogen 8 mg/dL (7-20) Creatinine 0.8 mg/dL (0.6-1.0) Estimated GFR (Cockcroft-Gault) 78.3 BUN/Creatinine Ratio 10 (6-20) Glucose Level 176 mg/dL (70-99) H Calcium Level 9.0 mg/dL (8.5-10.1) Total Bilirubin 0.8 mg/dL (0.2-1.0) Aspartate Amino Transferase (AST) 12 U/L (15-37) L Alanine Aminotransferase (ALT) 25 U/L (14-59) Alkaline Phosphatase 61 U/L (46-116) Total Protein 7.8 g/dL (6.4-8.2) Albumin 3.2 g/dL (3.4-5.0) L Albumin/Globulin Ratio 0.7 (1.0-1.7) L Lipase 102 U/L (73-393) Vital Signs: Vital Signs Date Time Temp Pulse Resp B/P (MAP) Pulse Ox O2 Delivery O2 Flow Rate FiO2 06/24/20 15:50 98.5 110 28 178/119 (138) 95 Room Air EKG: EKG: [] Radiology/Procedures: Radiology/Procedures: PROCEDURE: CT ABD PELV W/ IV CONTRST ONLY Exam: CT abdomen and pelvis with contrast INDICATION: Right-sided abdominal pain TECHNIQUE: Sequential axial images through the abdomen and pelvis obtained following the administration of 75 mL of Isovue-370 IV contrast. Sagittal and coronal reformatted images were reconstructed from the axial data and reviewed. Comparisons: 05/16/2018 FINDINGS: Heart size is normal. No pericardial effusion. Visualized lung bases are clear. No pleural effusion. Evaluation of solid organs is limited secondary to noncontrast technique. Diffuse hepatic steatosis. Spleen, and pancreas are unremarkable. There is a 3 cm macroscopic fat containing nodule in the right adrenal gland representing myelolipoma. No perinephric inflammation or hydronephrosis. No renal or ureteral calculi are identified. Uterus is nonenlarged. There is a large fat-containing cystic lesion in the right adnexa which measures up to 13.1 x 8.1 cm. Mild wall thickening at the sigmoid colon. Appendix is nonidentified. No free intra-abdominal air or fluid. No obstruction. Abdominal aorta has a normal course and caliber. Abdominal vasculature is patent. No enlarged intra-abdominal lymph nodes are identified. No suspicious osseous lesions or acute fractures. IMPRESSION: 1. Right adnexal dermoid/teratoma similar in size with mild adjacent free fluid. Correlate with symptomatology to determine the need for further evaluation with ultrasound. 2. Mild diffuse hepatic steatosis. 3. Mild wall thickening at the sigmoid colon may relate to mild colitis. Exposure: One or more of the following in the visualized dose reduction techniques were utilized for this examination: 1. Automated exposure control 2. Adjustment of the MA and/or KV according to patient size 3. Use of iterative of reconstructive technique Electronically signed by: Em Alexander MD (06/24/2020 5:53 PM) [facility] Course & Med Decision Making: Course & Med Decision Making Pertinent Labs and Imaging studies reviewed. (See chart for details) Patient presents emergency department with right-sided abdominal pain that began 5 days ago and has increased in degree since then. Patient states that it is similar to her PCOS she has had in the past but is longer in duration. Patient has no history of type of biliary colic or biliary disease. He has no history of ulcers. Patient denies any dysuria or change in urine or stool. Patient did have a positive Lizarraga sign and McBurney's point, but because the patient's large body habitus it is hard to properly perform physical examination. Because of past PCOS episodes and patient's shortness of breath associated with the pain we performed a CT which came back negative for any acute or emergent illnesses that needed to be addressed. Patient was discharged to home and advised to return or follow-up with PCP if she has increased fever or uncontrollable pain or does not get better within 5 days. Patient stable for discharge with outpatient follow-up with PCP. Discussed findings and plan with patient, who acknowledges understanding and agreement. Haroon Disclaimer: Haroon Disclaimer: This electronic medical record was generated, in whole or in part, using a voice recognition dictation system. Departure Departure: Impression: Primary Impression: Abdominal pain Qualified Codes: R10.31 - Right lower quadrant pain Additional Impression: Ovarian teratoma Qualified Codes: D27.0 - Benign neoplasm of right ovary Disposition: HOME / SELF CARE / HOMELESS Condition: STABLE Referrals: NON,STAFF (PCP) Patient Instructions: Abdominal Pain, [id number], Ovarian Cyst, [id number] Additional Instructions: Please provide copy of your CT to your LITERACY CONSULTANT or family physician. Scripts Ondansetron (ONDANSETRON ODT) 4 Mg Tab.rapdis 1 TAB PO PRN Q6-8HRS PRN for NAUSEA, #16 TAB Prov: ANA MARIA TODD DO 06/24/20 Hydrocodone Bit/Acetaminophen (HYDROCODONE-APAP 7.5-325 ) 1 Each Tablet 0.5-1 TAB PO PRN Q6HRS PRN for PAIN, #10 TAB 0 Refills Prov: ANA MARIA TODD DO 06/24/20 ANA MARIA TODD DO Jun 24, 2020 18:25
[2020-06-24] MEDS ORDERED: ONDANSETRON PF 4 MG/2 ML VIAL. IVP ONE (18:30)
[2020-06-24] MEDS ORDERED: HYDROcodone/APAP 7.5/325MG 1 TAB TABLET PO ONE (18:30)
[2020-06-24 18:47] VITALS: BP 139/102
[2020-06-24] MEDS ORDERED: HYDR-2765 PO (18:50)
[2020-06-24] MEDS ORDERED: ONDA4TAB12 PO (18:50)
== END 2020-06-24 19:10 | disposition home or self-care (01) ==
LOC: ER 15:43
DX: D27.0 Benign neoplasm of right ovary (principal); R10.31 Right lower quadrant pain; I11.0 Hypertensive heart disease with heart failure; I50.9 Heart failure, unspecified; E11.9 Type 2 diabetes mellitus without complications; E78.00 Pure hypercholesterolemia, unspecified; F17.210 Nicotine dependence, cigarettes, uncomplicated; E66.01 Morbid (severe) obesity due to excess calories; Z68.44 Body mass index [BMI] 60.0-69.9, adult; Z88.0 Allergy status to penicillin
CPT/HCPCS: 36415; 74177; 80053; 81001; 81025; 83690; 85025; 96361; 96374; 96375; 99285; J1885; J2405; J3490; J7030; Q9967

== ENCOUNTER 2020-09-06 11:20 | Observation (INO) | payer OTHER ==
[~2020-09-06] VITALS: Ht 167.6 cm; Wt 179.8 kg
[2020-09-06] VITALS (9 sets, daily range): BP systolic 132–164; BP diastolic 79–115
[~2020-09-06 11:20] MED LIST changes: +HYDR-2765 PO; -OMEP40CA45 PO; +OMEP40CA7 PO; +ONDA4TAB12 PO
--- NOTE | 2020-09-06 11:36 | PHYS DOC ---
Past History Past Medical History: CHF, Diabetes, High Cholesterol, Hypertension, Ovarian Cyst, Other Additional Past Medical Histor: SI attempt by overdose,PERIPHERAL EDEMA, MORBID OBESITY Past Surgical History: Other Additional Past Surgical Histo: rt ear tubes x6; lt ear tubes x7 Smoking: Cigarettes Alcohol Use: None Drug Use: None Adult General Chief Complaint Chief Complaint: CHEST PAIN [facility] HPI Patient is a 44-year-old female complaining of chest discomfort. Reports this is an acute on chronic issue but worsened this morning shortly after eating. Nothing known makes better or worse. Patient describes dull left-sided breast pain that radiates to left arm and neck that started 30 minutes prior to arrival. Reports pain is 6/10 in severity. Reports has history of heart issues, has congestive heart failure of unknown ejection fraction. Has had provocative work-up in the past that included a heart catheterization 5 years ago that did not require any intervention/stents. She admits numerous comorbidities such as morbid obesity and type II dependent diabetes for which she is not insulin-dependent. Admits she has been off all medications for past 2 weeks due to personal choice, these medications include spironolactone and Lasix. Reports she has had increased edema and swelling in lower extremities since that time, states she thinks she has gained weight but unsure as she does not weigh herself at home Review of Systems Review of Systems Fourteen body systems of review of systems have been reviewed. See HPI for pertinent positives and negative responses, other melgoza all other systems are negative, non-pertinent or non-contributory Allergies Allergies Allergies Coded Allergies Type Severity Reaction Last Updated Verified Penicillins Allergy Severe sob 05/02/19 No Physical Exam Physical Exam Constitutional: Well developed, well nourished, morbidly obese, no acute distress, non-toxic appearance. HENT: Normocephalic, atraumatic, bilateral external ears normal, oropharynx moist, no oral exudates, nose normal. Hirsutism of chin present Eyes: PERRLA, EOMI, conjunctiva normal, no discharge. Neck: Normal range of motion, no tenderness, supple, no stridor. Acanthosis nigricans present on neck Cardiovascular: Heart rate regular, sinus rhythm, no murmurs rubs or gallops Lungs & Thorax: No acute respiratory distress, no accessory muscle use, no obvious increased work of breathing, breath sounds diminished bilaterally due to body habitus, no obvious wheezes or rhonchi, rales present in bilateral lobes Abdomen: Bowel sounds normal, soft, no tenderness, no masses, no pulsatile masses. Nonsurgical abdomen, no peritoneal signs Skin: Warm, dry, no erythema, no rash. Back: No tenderness, no CVA tenderness. Extremities: No tenderness, no cyanosis, no clubbing, ROM intact, no edema. Neurologic: Alert and oriented X 3, grossly normal motor & sensory function, no focal deficits noted. Psychologic: Affect normal, judgement normal, mood normal. Current Patient Data Vital Signs Vital Signs Date Time Temp Pulse Resp B/P (MAP) Pulse Ox O2 Delivery O2 Flow Rate FiO2 09/06/20 11:55 91 166/100 Vital Signs Date Time Temp Pulse Resp B/P (MAP) Pulse Ox O2 Delivery O2 Flow Rate FiO2 09/06/20 11:55 91 166/100 Lab Results Laboratory Tests Test 09/06/20 11:35 09/06/20 12:54 White Blood Count 12.2 x10^3/uL Red Blood Count 5.20 x10^6/uL Hemoglobin 14.5 g/dL Hematocrit 44.0 % Mean Corpuscular Volume 85 fL Mean Corpuscular Hemoglobin 28 pg Mean Corpuscular Hemoglobin Concent 33 g/dL Red Cell Distribution Width 16.5 % Platelet Count 270 x10^3/uL Neutrophils (%) (Auto) 59 % Lymphocytes (%) (Auto) 31 % Monocytes (%) (Auto) 5 % Eosinophils (%) (Auto) 5 % Basophils (%) (Auto) 1 % Neutrophils # (Auto) 7.2 x10^3uL Lymphocytes # (Auto) 3.7 x10^3/uL Monocytes # (Auto) 0.6 x10^3/uL Eosinophils # (Auto) 0.6 x10^3/uL Basophils # (Auto) 0.1 x10^3/uL Sodium Level 140 mmol/L Potassium Level 4.0 mmol/L Chloride Level 102 mmol/L Carbon Dioxide Level 27 mmol/L Anion Gap 11 Blood Urea Nitrogen 8 mg/dL Creatinine 0.8 mg/dL Estimated GFR (Cockcroft-Gault) 78.3 BUN/Creatinine Ratio 10 Glucose Level 218 mg/dL Calcium Level 8.7 mg/dL Total Bilirubin 0.9 mg/dL Aspartate Amino Transf (AST/SGOT) 21 U/L Alanine Aminotransferase (ALT/SGPT) 31 U/L Alkaline Phosphatase 68 U/L Troponin I Quantitative < 0.017 ng/mL DZ-Exe-D-Type Natriuretic Peptide 182 pg/mL Total Protein 7.7 g/dL Albumin 3.3 g/dL Albumin/Globulin Ratio 0.8 Bedside Urine HCG, Qualitative hcg negative Current Medications Medications (Trade) Dose Ordered Sig/Cami Route PRN Reason Start Time Stop Time Status Last Admin Dose Admin Aspirin (Aspirin Chewable) 162 mg 1X ONCE PO 09/06/20 11:45 09/06/20 11:46 DC 09/06/20 11:48 Nitroglycerin (Nitrostat) 0.4 mg PRN Q5MIN PRN SL CHEST PAIN 09/06/20 12:00 09/06/20 11:55 EKG EKG EKG ordered and interpreted by myself at 1135 hrs. as sinus tachycardia at 101 bpm, prolonged OH at 206, prolonged QTC at 473 otherwise unremarkable intervals, bigeminy with several PVCs present, no STEMI Repeat EKG ordered and interpreted by myself at 1230 hrs. as sinus rhythm at 97 bpm, prolonged OH at 202, prolonged QTC at 497 otherwise unremarkable intervals, no axis deviation, no obvious ischemic findings, no STEMI, bigeminy is not present in EKG is changed from initial after x1 nitro Radiology/Procedures Radiology/Procedures EXAM: Chest, single view. HISTORY: Chest pain. Asthma. COMPARISON: 06/02/2020 FINDINGS: A frontal view of the chest obtained. There is fairly stable diffuse increased interstitial opacity. There is no consolidation, pleural effusion or pneumothorax. There is stable cardiomegaly, allowing for differences in imaging technique. IMPRESSION: Stable diffuse increased interstitial opacity and cardiomegaly. No consolidated infiltrate is seen. Electronically signed by: Emily Best MD (09/06/2020 11:49 AM) [id number] Heart Score C/O Chest Pain: Yes HEART Score for Chest Pain: HEART Score for Chest Pain Response (Comments) Value History Moderately Suspicious 1 ECG Nonspecific Repolarizatio 1 Age >45 - < 65 1 Risk Factors >3 Risk Factors or Hx CAD 2 Troponin < Normal Limit 0 Total 5 Risk Factors: Risk Factors: DM, Current or recent (<one month) smoker, HTN, HLP, family history of CAD, obesity. Risk Scores: Risk Factors: DM, Current or recent (<one month) smoker, HTN, HLP, family history of CAD, obesity. Course & Med Decision Making Course & Med Decision Making Airway patent, breathing unremarkable, IV and vitals obtained concerning initially for tachycardia that self improved and hypertension HPI and physical exam concerning for potential fluid overload and patient has been noncompliant with home diuretic medications. Physical exam nonconcerning for any emergent or surgical issues Patient responded initially to 162 mg aspirin, x1 nitro administered in ER; however, patient reported ongoing symptoms. Decision was made to administer 80 mg IV Lasix and additional x1 sublingual nitro with improvement in symptoms I contacted hospitalist and reviewed case, he agreed need for admission for continued IV diuretics given patient's fluid overloaded state and high risk individual who has been noncompliant with medications I updated patient on proposed plan of care that included hospital admission, she was amenable. All questions and concerns addressed prior to hospital admission Critical Care Time This patient required critical care. Due to the fact that the patient required a significant amount of one on one physician - patient contact time, ordering and review of studies, arranging urgent treatment with development of a management plan, evaluation of patients response to treatment with frequent reassessments, and discussions with other providers this patient required 35 minutes of critical care time. Critical care time was indicated due to the inherent instability and/or potential for instability in this patient. The critical care time that is allocated to this patient is above and beyond any time spent on any other billable procedures performed on this patient. Dragon Disclaimer Dragon Disclaimer This electronic medical record was generated, in whole or in part, using a voice recognition dictation system. Departure Departure: Impression: Primary Impression: Acute exacerbation of congestive heart failure Additional Impressions: Chest pain Obesities, morbid Type 2 diabetes mellitus Disposition: ADMITTED INPATIENT Admitting Physician: Sajan Mills Condition: STABLE Referrals: PCP,NO (PCP) Problem Qualifiers MIRIAM TORRE DO Sep 06, 2020 11:36
[2020-09-06] MEDS ORDERED: ASPIRIN CHEWABLE 81 MG TABLET. PO ONE (11:45)
--- NOTE | 2020-09-06 11:51 | RAD ---
EXAM: Chest, single view. HISTORY: Chest pain. Asthma. COMPARISON: 06/02/2020 FINDINGS: A frontal view of the chest obtained. There is fairly stable diffuse increased interstitial opacity. There is no consolidation, pleural effusion or pneumothorax. There is stable cardiomegaly, allowing for differences in imaging technique. IMPRESSION: Stable diffuse increased interstitial opacity and cardiomegaly. No consolidated infiltrat e is seen. Electronically signed by: Emily Best MD (09/06/2020 11:49 AM) [id number]
[2020-09-06] MEDS: NITROGLYCERIN SUBLINGUAL 0.4 MG BOTTLE OF 25. SL PRN ×2 (11:55→13:23)
[2020-09-06 12:32] LABS: BASO # 0.1 x10^3/uL (0.0-0.2); BASO % 1 % (0-3); EOS # 0.6 x10^3/uL (0.0-0.7); EOS % 5 % (0-3); HEMOGLOBIN 14.5 g/dL (12.0-15.5); LYMPH # 3.7 x10^3/uL (1.0-4.8); LYMPH % 31 % (24-48); MEAN CORPUSCULAR HEMOGLOBIN 28 pg (25-35); MEAN CORPUSCULAR HGB CONC 33 g/dL (31-37); MEAN CORPUSCULAR VOLUME 85 fL (79-100); MONO # 0.6 x10^3/uL (0.0-1.1); MONO % 5 % (0-9); NEUT # 7.2 x10^3uL (1.8-7.7); NEUT % 59 % (31-73); PLATELET COUNT 270 x10^3/uL (140-400); RED CELL DISTRIBUTION WIDTH 16.5 % (11.5-14.5); WHITE BLOOD COUNT 12.2 x10^3/uL (4.0-11.0)
[2020-09-06 12:50] LABS: ALBUMIN 3.3 g/dL (3.4-5.0); ALBUMIN/GLOBULIN RATIO 0.8 (1.0-1.7); CALCIUM 8.7 mg/dL (8.5-10.1); CREATININE 0.8 mg/dL (0.6-1.0); GFR 78.3; TOTAL BILIRUBIN 0.9 mg/dL (0.2-1.0); TOTAL PROTEIN 7.7 g/dL (6.4-8.2)
[2020-09-06 13:29] LABS: BARBITURATES NEG (NEG); BENZODIAZEPINES NEG (NEG); CANNABINOIDS NEG (NEG); COCAINE NEG (NEG); METHADONE NEG (NEG); OPIATES NEG (NEG); PHENCYCLIDINE NEG (NEG)
[2020-09-06] MEDS ORDERED: FUROSEMIDE 40 MG/4 ML VIAL IVP ONE (13:30)
[2020-09-06 13:37] LABS: AMPHETAMINE/METHAMPHETAMINE NEG (NEG)
[2020-09-06] MEDS ORDERED: ONDANSETRON PF 4 MG/2 ML VIAL. IVP PRN (13:45)
[2020-09-06] MEDS ORDERED: ACETAMINOPHEN 325 MG TABLET PO PRN (13:45)
[2020-09-06] MEDS ORDERED: NITROGLYCERIN SUBLINGUAL 0.4 MG BOTTLE OF 25. SL PRN (13:45)
[2020-09-06] MEDS ORDERED: GLIP5TAB22 PO (16:06)
[2020-09-06] MEDS ORDERED: CYAN-25 PO (16:06)
[2020-09-06] MEDS: FUROSEMIDE 100 MG/10 ML VIAL IVP SCH (20:53)
[2020-09-07] VITALS (14 sets, daily range): BP systolic 136–182; BP diastolic 86–128
[2020-09-07] MEDS ORDERED: FENOFIBRATE NANOCRYSTALLIZED 145 MG TABLET PO SCH (10:00)
[2020-09-07] MEDS ORDERED: CITALOPRAM 20 MG TABLET. PO SCH (10:00)
[2020-09-07] MEDS ORDERED: CYANOCOBALAMIN (VITAMIN B-12) 1,000 MCG TABLET. PO SCH (10:00)
[2020-09-07] MEDS ORDERED: traMADol 50 MG TABLET PO PRN (10:00)
[2020-09-07] MEDS ORDERED: LOSARTAN 50 MG TABLET. PO SCH (10:00)
[2020-09-07] MEDS ORDERED: amLODIPine BESYLATE 10 MG TABLET PO SCH (10:00)
[2020-09-07] MEDS ORDERED: ASPIRIN ENTERIC COATED 81 MG TABLET.DR. PO SCH (10:00)
[2020-09-07] MEDS: FUROSEMIDE 100 MG/10 ML VIAL IVP SCH (10:41)
--- NOTE | 2020-09-07 11:08 | HP ---
ATTENDING PHYSICIAN: Dr. Mills CHIEF COMPLAINT: Shortness of breath and chest pressure. HISTORY OF PRESENT ILLNESS: The patient is a 44-year-old female who weighs in excess of 410 pounds. She has stopped her medications about 2 weeks ago. She states that she was depressed and did not care. She did not have any active suicidal ideation is rather indifferent. In any event, she had a heart cath 5 years ago that did not require any intervention. She has seen Dr. Perez recently. She is diabetic. She had an x-ray done, which showed florid congestive heart failure with vascular congestion. She is also a smoker. She is admitted then with exacerbation of COPD due to noncompliance of meds. PAST MEDICAL HISTORY: Significant for history of congestive heart failure, type 2 diabetes, hyperlipidemia, hypertension, ovarian cyst, previous suicide attempt by overdose many years ago. PAST SURGICAL HISTORY: Ears, she had chronic otitis requiring many ear tubes. She was admitted then for further treatment and evaluation and rule out coronary ischemia. CURRENT MEDICATIONS: None, but she was scheduled in the past to take Lasix 40 mg daily, she has not had it in 2 weeks; amlodipine; Benadryl; hyoscyamine; fenofibrate; Lipitor; Coreg; losartan; Aldactone; aspirin; hydrocodone; tramadol; Lexapro; ondansetron; Protonix; metformin; and glipizide. ALLERGIES: She has allergies to PENICILLIN, which causes rash. SOCIAL HISTORY: She is a smoker. As noted, she denies any alcohol use or drug use. FAMILY HISTORY: Noncontributory. Mother is still alive and healthy. Father's history is unclear. REVIEW OF SYSTEMS: Significant for depression indifference. She does not have suicidal ideation; however, she has taken drug overdose in the past. She has a longstanding history of depression, noncompliance of meds. No recent fevers, chills or ____ exposure. All other systems reviewed and turned to be negative. PHYSICAL EXAMINATION: GENERAL: When I saw her, this is a pleasant, but morbidly obese female. VITAL SIGNS: Her blood pressure is 150/109, pulse 87 and regular, oxygen saturation 99% on 3 liters. HEENT: Head is without trauma. Pupils are reactive. Sclerae nonicteric. Oropharynx clear. NECK: Supple, no bruits. LUNGS: Bibasilar crackles persist. CARDIOVASCULAR: Showed distant heart tones. No gallops. ABDOMEN: Markedly obese, protuberant. No guarding or rebound tenderness. I cannot assess organomegaly based on her girth. EXTREMITIES: Show trace edema. NEUROLOGIC: Function focally intact. SKIN: Warm and dry. PERTINENT LABORATORY STUDIES: Admission hemoglobin was 14.5 g/dL with a white count of 12,200. Nonfasting blood sugar ____ mg/dL, potassium 4.0 mEq, creatinine 0.8 mg/dL. Initial cardiac enzymes were negative for coronary ischemia. ASSESSMENT: 1. A 44-year-old female with acute on chronic congestive heart failure, symptomatic. 2. Noncompliance of medication. She stopped taking her meds 2 weeks ago. 3. Morbid obesity. 4. Essential hypertension. 5. Hypertensive heart disease. 6. Adult onset diabetes. 7. Underlying depression with anxiety. PLAN: 1. Admit to the ICU. 2. Intravenous diuretics. 3. Wean down supplemental oxygen. 4. Restart home meds. 5. Diabetic diet. DAKOTAH/KELTON/AMINAH DR: DAKOTAH/joan TID: [id number]
[2020-09-07] MEDS ORDERED: CARVEDILOL 12.5 MG TABLET PO SCH (12:35)
--- NOTE | 2020-09-07 12:54 | DS ---
ATTENDING PHYSICIAN: Dr. Mills FINAL DISCHARGE DIAGNOSES: 1. Uncontrolled hypertension. 2. Acute on chronic congestive heart failure, improved. 3. Morbid obesity. Weight in excess of 410 pounds. 4. Type 2 diabetes. 5. Essential hypertension. 6. Hyperlipidemia. 7. Gastroesophageal reflux disease. 8. History of ovarian teratoma. 9. Substance abuse. 10. Underlying depression with previous suicide attempt. HISTORY AND PHYSICAL: The patient, age 44, is noncompliant. She became depressed and stopped taking her medicines. She has hypertensive heart disease with congestive heart failure and vascular congestion. She was admitted for further treatment and evaluation. PHYSICAL EXAMINATION: Please see the dictated note. PERTINENT LABORATORY AND X-RAY STUDIES: Chest x-ray on admission showed cardiomegaly with forward heart failure, vascular congestion. Admission hemoglobin was 14.5 g/dL with a white count of 12,200. Cardiac enzymes negative for coronary ischemia. Nonfasting blood sugar 218 mg/dL. Electrolytes, BUN and creatinine all within normal range. COURSE IN THE HOSPITAL: The patient was admitted. She was weaned off supplemental oxygen. She responded well to intravenous Lasix, fluid restriction, daily weights and initiated her home meds. Blood pressure was a bit high, but ____. On the second hospital day, she was breathing much better. Her oxygen sats were 92% on room air, blood pressure remains a bit high, but she wanted to go home. I felt this is reasonable. Therefore, I strongly recommended she take her daily medication including the following: I wrote new scripts for her for Lasix 80 mg p.o. daily in the morning, amlodipine 10 mg daily, aspirin 81 mg daily, Lipitor 40 mg daily, Coreg 25 mg b.i.d., Lexapro 20 mg daily, glipizide 5 mg daily, metformin 1000 b.i.d., losartan 50 mg daily, Protonix 40 mg daily, and K-Dur 20 mEq daily. Strong encouragement to take her daily meds. She will follow up with her PCP at the [facility]. She was discharged then from our hospital in stable condition with explicit drug and followup care. DAKOTAH/ENMANUEL/AMINAH DR: DAKOTAH/joan TID: [id number]
[2020-09-07] MEDS ORDERED: HYOSCYAMINE SULFATE 0.125 MG PO SCH (13:00)
[2020-09-07] MEDS ORDERED: ATORVASTATIN CALCIUM 20 MG TABLET PO SCH (21:00)
[2020-09-07] MEDS ORDERED: PANTOPRAZOLE 40 MG TABLET. PO SCH (21:00)
--- NOTE | 2020-09-07 21:28 | EKG ---
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
--- NOTE | 2020-09-07 21:29 | EKG ---
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
[2020-09-08] MEDS ORDERED: metFORMIN 500 MG TABLET PO SCH (08:00)
[2020-09-08] MEDS ORDERED: glipiZIDE 5 MG TABLET PO SCH (09:00)
== END 2020-09-07 13:15 | disposition home or self-care (01) ==
LOC: ER 11:20 → INTOOBSV 13:31 → ICU 13:31 → ER 14:15
PROVIDERS: ADMIT Hospitalist; ATTEND Hospitalist
DX: I11.0 Hypertensive heart disease with heart failure (principal); I50.23 Acute on chronic systolic (congestive) heart failure; E66.01 Morbid (severe) obesity due to excess calories; E11.9 Type 2 diabetes mellitus without complications; F41.9 Anxiety disorder, unspecified; F32.9 Major depressive disorder, single episode, unspecified; E78.5 Hyperlipidemia, unspecified; E78.00 Pure hypercholesterolemia, unspecified; F41.8 Other specified anxiety disorders; J44.1 Chronic obstructive pulmonary disease with (acute) exacerbation; K21.9 Gastro-esophageal reflux disease without esophagitis; N64.4 Mastodynia; F17.210 Nicotine dependence, cigarettes, uncomplicated; Z79.82 Long term (current) use of aspirin; Z79.84 Long term (current) use of oral hypoglycemic drugs; Z79.899 Other long term (current) drug therapy; Z91.14 Patient's other noncompliance with medication regimen; Z91.19 Patient's noncompliance with other medical treatment and regimen; Z91.5 Personal history of self-harm; Z98.890 Other specified postprocedural states; Z68.44 Body mass index [BMI] 60.0-69.9, adult
CPT/HCPCS: 36415; 71045; 80053; 80307; 81025; 83880; 84484; 85025; 93005; 96374; 96376; 99291; G0378; J1940; G0379